=== PATIENT | female | born 2000 | race Caucasian/White ===

== ENCOUNTER 2023-12-26 10:13 | Outpatient (OUT) | payer BC, SELFPAY ==
[2023-12-26 12:08] LABS: HCG Quantitative <1 mIU/mL
== END 2023-12-26 10:14 | disposition home or self-care (01) ==
LOC: LAB 10:19
PROVIDERS: PCP Family Medicine; Visit Provider Physician Assistant
DX: R10.2 Pelvic and perineal pain (principal); N93.9 Abnormal uterine and vaginal bleeding, unspecified
CPT/HCPCS: 36415; 84702

== ENCOUNTER 2024-04-10 09:06 | Outpatient (OUT) | payer BC, SELFPAY ==
--- NOTE | 2024-04-10 09:09 | US_ITS ---
The [address] [address] Patient Name: BUDDY FAGAN MRN: [id number] date: 2000 Sex: F Assigned Patient Location: [facility] Current Patient Location: [facility] Accession/Order Number: [id number] Exam Date: 04/10/2024 09:09 Report Date: 04/10/2024 10:15 At the request of: VANESSA TOMAS Procedure: US OB transvaginal EXAMINATION: US OB transvaginal HISTORY: MISSED MENSES COMPARISON: No relevant comparison available. FINDINGS: GESTATIONAL SAC: Present and normal appearing. YOLK SAC: Present and normal appearing. POLE: Present and normal appearing. CARDIAC: Present. UTERUS: Normal size and appearance. OVARIES: Right: Normal. Left: Not seen. CERVIX: 4.8 cm in length and closed. CUL-DE-SAC: Normal. OTHER: None. AGE BY LMP: 9 weeks 0 days MARYELLEN BY LMP: 11/13/2024 AGE BY US CRL: 8 weeks 3 days MARYELLEN BY US CRL: 11/17/2024 US/US OB transvaginal IMPRESSION: 1. Single live intrauterine . Electronically authenticated by: JUSTIN HERNANDEZ Date: 04/10/2024 10:15
--- OUTSIDE RECORDS SUMMARY | 2024-04-10 09:29 | XMS_ITS | CCD ---
Author Organization [facility] Care Team Providers Care Vehicle Refinisher Name Role Phone Saeed MEJIA Primary Care Physician DO Saeed Mejia Primary Care Provider ADOLFO Dean Emergency Provider [phone] Saeed Mejia Primary Care Unavailable Addy Dean Attending Unavailable Addy Dean Admitting Unavailable JOSELINE RAMOS Attending Unavailable JOSELINE RAOMS Admitting Unavailable REQUEST, NONE LISTED Primary Care Unavaila JOSELINE Lazo Consulting Unavailable THOM, DR MENDEZ Consulting Unavailable THOM, DR MENDEZ Attending Unavailable REQUEST, DR POWELL LISTED Primary Care Unavaila ble THOM, DR MENDEZ Admitting Unavailable ZIEBER, DR JUSTIN Mazariegos Consulting Unavailable KARASIK, DR KAYE Attending Unavailable KARANDREA, DR KAYE Admitting Unavailable REQUEST, DR POWELL LISTED Primary Care Unavaila ble KARANDREA, DR KAYE Consulting Unavailable THOM, DR MENDEZ Consulting Unavailable GIOVANY DIETZ Consulting Unavailable THOM, DR MENDEZ Procedure Practitioner Unavailab le THOM, DR MENDEZ Consulting Unavailable KARASIK, DR KAYE Attending Unavailable KARASIK, DR KAYE Admitting Unavailable REQUEST, DR POWELL LISTED Primary Care Unavaila ble THOM, DR MENDEZ Attending Unavailable REQUEST, DR POWELL LISTED Primary Care Unavaila ble THOM, DR MENDEZ Admitting Unavailable ROBERTO, DR SAEED Rosenthal Primary Care Unavailable HTOM, DR MENDEZ Attending Unavailable THOM, DR MENDEZ Admitting Unavailable THOM, DR MENDEZ Consulting Unavailable THOM, DR MENDEZ Consulting Unavailable THOM, DR MENDEZ Attending Unavailable THOM, DR MENDEZ Admitting Unavailable ZIEBER, DR JUSTIN Mazariegos Consulting Unavailable THOM, DR MENDEZ Consulting Unavailable THOM, DR MENDEZ Admitting Unavailable THOM, DR MENDEZ Attending Unavailable ROBERTO, DR SAEED Rosenthal Primary Care Unavailable ROBERTO, DR SAEED Rosenthal Primary Care Unavailable THOM, DR MENDEZ Attending Unavailable THOM, DR MENDEZ Admitting Unavailable THOM, DR MENDEZ Consulting Unavailable THOM, DR MENDEZ Attending Unavailable REQUEST, DR POWELL LISTED Primary Care Unavaila isa TOMAS, DR MENDEZ Admitting Unavailable ROCKWOOD, DR ESCOBAR Chatman Consulting Unavailable THOM, DR MENDEZ Consulting Unavailable RICHARD, RAE Attending Unavailable Medications Current Medications Medication Drug Class(es) Dates Sig (Normalized) Sig (Original) amoxicillin 875 mg / clavulanate 125 mg oral tablet (1 source) Penicillin-class Antibacterial Start: 03-16-2022 End: 03-23-2022 take 1 tablet by mouth every twelve hours amoxicillin-clavul anate 875 mg-125 mg oral tablet = 1 tab(s), Oral, q12hr, X 7 day(s), # 14 tab(s), Refills(s) 0, [id number], cm, 03/16/22 15:28:00 EDT, Height/Length Dosing, 73.1, kg, 03/16/22 15:28:00 EDT, Weight Dosing Start Date: 03/16/22 Stop Date: 03/23/22 Status: Ordered loratadine 10 mg oral tablet (1 source) Start: 07-18-2020 take 1 tablet by mouth once daily loratadine 10 mg Tab 10 mg = 1 tab(s), Oral, Daily, # 15 tab(s), Refills(s) 1, Pharmacy: [id number], 180, cm, 07/18/20 9:00:00 EDT, Height/Length Dosing, 70.8, kg, 07/18/20 9:00:00 EDT, Weight Dosing Start Date: 07/18/20 Status: Ordered ondansetron 4 mg oral tablet (1 source) Serotonin-3 Receptor Antagonist Start: 03-16-2022 take 1 tablet by mouth every six hours as needed for nausea ondansetron 4 mg Tab 4 mg = 1 tab(s), Oral, q6hr, PRN Nausea/Vomiting, # 12 tab(s), Refills(s) 0, [id number] 180, cm, 03/16/22 15:28:00 EDT, Height/Length Dosing, 73.1, kg, 03/16/22 15:28:00 EDT, Weight Dosing Start Date: 03/16/22 Status: Ordered Pnv Cmb#95-Ferrous Fumarate-Fa () 28 mg iron- 800 mcg Tablet (1 source) Start: 08-04-2022 take 1 tablet by mouth once daily Pnv Cmb#95-Ferrous Fumarate-Fa () 28 mg iron- 800 mcg Tablet Active 1 TAB PO Daily August 04, 2022 12:00am Sprintec oral tablet (1 source) Start: 01-16-2022 take 1 tablet by mouth once daily Sprintec oral tablet 1 tab(s), Oral, Daily, 28 tab(s), [facility](s) [id number], 180, cm, 07/26/21 12:56:00 EDT, Height/Length Dosing, 69.3, kg, 07/26/21 12:56:00 EDT, Weight Dosing Start Date: 01/16/22 Status: Ordered triamcinolone acetonide 1 mg/ml topical cream (1 source) Corticosteroid Start: 08-04-2022 Triamcinolone Acetonide Active APPLIC TOPICAL August 04, 2022 12:00am Completed/Discontinued Medications Medication Drug Class(es) Dates Sig (Normalized) Sig (Original) Ventolin HFA 90 mcg/inh Aerosol (1 source) Start: 11-28-2021 take 1 dose by inhalation every six hours Ventolin HFA 90 mcg/inh Aerosol 2 puff(s), Inhalation, q6hr for wheezing, 1 EA, Refill(s) 1, [id number], 180, cm, 07/26/21 12:56:00 EDT, Height/Length Dosing, 69.3, kg, 07/26/21 12:56:00 EDT, Weight Dosing Start Date: 11/28/21 Status: Ordered Problems Active Problems Problem Classification Problem Date Documented Date Episodic/Chronic Menstrual disorders (4 sources) Irregular menstruation, unspecified; Translations: [IRREGULAR MENSTRUATION UNSPECIFIED] Onset: 10-08-2022 Chronic OB-related trauma to perineum and vulva (1 source) Second degree perineal laceration during delivery; Translations: [SECOND DEG PERINEAL LAC DUR DELIV] Onset: 01-04-2023 Episodic Other complications of (4 sources) Other specified related conditions, third trimester; Translations: [OTH SPEC PREG RELATED COND 3RD TRI] Onset: 10-23-2022 Episodic Other complications of (4 sources) Maternal care for excessive growth, third trimester, not applicable or unspecified; Translations: [MAT CARE EXCSS FTL GRTH 3RD TRI UNS] Onset: 12-27-2022 Episodic Other complications of (4 sources) Decreased movements, third trimester, not applicable or unspecified; Translations: [DECR MOVEMENTS 3RD TRI NA/UNS] Onset: 10-31-2022 Episodic Other and delivery including normal (11 sources) Encounter for routine follow-up; Translations: [Encounter for supervision of normal , unspecified, third trimester] Onset: 12-13-2022 Episodic Other screening for suspected conditions (not mental disorders or infectious disease) (9 sources) Encounter for screening for diabetes mellitus; Translations: [Encounter for other specified screening] Onset: 08-22-2022 Episodic Other skin disorders (1 source) Eruption; Translations: [Rash and other nonspecific skin eruption] 08-04-2022 Episodic Other skin disorders (1 source) Rash and other nonspecific skin eruption; Translations: [Rash and other nonspecific skin eruption] Onset: 08-04-2022 Episodic Other upper respiratory disease (1 source) Seasonal allergic rhinitis 05-20-2014 Chronic Other upper respiratory infections (1 source) Acute pharyngitis 07-18-2020 Episodic Residual codes; unclassified (1 source) Patient encounter status; Translations: [Other specified health status] Onset: 03-16-2022 Episodic Residual codes; unclassified (1 source) Body mass index 20-24 - normal; Translations: [Body mass index (BMI) 22.0-22.9, adult] Onset: 03-16-2022 Episodic Residual codes; unclassified (1 source) 38 weeks gestation of ; Translations: [38 WEEKS GESTATION OF ] Onset: 01-04-2023 Episodic Residual codes; unclassified (1 source) Type A blood, Rh negative; Translations: [TYPE A BLOOD RH NEGATIVE] Onset: 01-04-2023 Episodic Residual codes; unclassified (1 source) 34 weeks gestation of ; Translations: [34 WEEKS GESTATION OF ] Onset: 12-06-2022 Episodic Residual codes; unclassified (1 source) 30 weeks gestation of ; Translations: [30 WEEKS GESTATION OF ] Onset: 11-03-2022 Episodic Residual codes; unclassified (1 source) Unspecified blood type, Rh negative; Translations: [UNSPECIFIED BLOOD TYPE RH NEGATIVE] Onset: 10-30-2022 Episodic Unclassified (1 source) Body mass index 20-24 - normal 07-18-2020 Unclassified (1 source) Non-smoker 07-18-2020 Comment on above: Added secondary to d ocumentation in Social History. Urinary tract infections (1 source) Cystitis 07-26-2021 Episodic Viral infection (1 source) Disease caused by 2019-nCoV; Translations: [COVID-19] 04-23-2021 Episodic Viral infection (1 source) Disease caused by 2019-nCoV 11-28-2021 Past or Other Problems Problem Classification Problem Date Documented Date Episodic/Chronic Immunizations and screening for infectious disease (1 source) Contact with and (suspected) exposure to infections with a predominantly sexual mode of transmission; Translations: [CONTCT W EXPOS INFECT SEXUAL TRNSMS] Onset: 10-13-2022 Episodic Results Test Name Value Interpretation Reference Range Facility CBC AUTO DIFFon 01-01-2023 BASO # 0.1 103/ul Normal 0.0-0.1 [facility] Comment on above: Performed By: #### C BC #### [facility] [address] [place] [address] Dr. Maxx Downey Basophils/100 WBC (Bld) 0.4 % Normal 0.2-2.0 [facility] Comment on above: Performed By: #### C BC #### [facility] [address] [place] [address] Dr. Maxx Downey EO # 0.1 103/ul Normal 0.0-0.7 [facility] Comment on above: Performed By: #### C BC #### [facility] [address] [place] [address] Dr. Maxx Downey Eosinophils/100 WBC (Bld) 0.4 % Critically low 0.9-7.0 [facility] Comment on above: Performed By: #### C BC #### [facility] [address] [place] [address] Dr. Maxx Downey Erythrocyte distribution width (RBC) [Ratio] 13.7 % Normal 11.0-15.0 [facility] Comment on above: Performed By: #### C BC #### [facility] [address] [address] [address] Maxx Downey Hematocrit (Bld) [Volume fraction] 27.8 % Critically low 36.0-48.0 [facility] Comment on above: Performed By: #### C BC #### [facility] [address] [place] [address] Dr. Maxx Downey Hemoglobin (Bld) [Mass/Vol] 9.0 g/dL Critically low 12.0-16.0 [facility] Comment on above: Performed By: #### C BC #### [facility] [address] [place] [address] Dr. Maxx Downey IG # 0.11 10e3/ul Critically high 0.00-0.03 [facility] Comment on above: Performed By: #### C BC #### [facility] [address] [place] [address] Dr. Maxx Downey IG % 0.7 % Critically high 0.0-0.5 [facility] Comment on above: Performed By: #### C BC #### [facility] [address] [place] [address] Dr. Maxx Downey LYMPH # 2.9 103/ul Normal 1.2-3.8 [facility] Comment on above: Performed By: #### C BC #### [facility] [address] [place] [address] Dr. Maxx Downey Lymphocytes/100 WBC (Bld) 18.2 % Critically low 20.5-60.0 [facility] Comment on above: Performed By: #### C BC #### [facility] [address] [place] [address] Dr. Maxx Downey MANUAL DIFF REQ NO Normal [facility] Comment on above: Performed By: #### C BC #### [facility] [address] [address] [address] Maxx Downey MCH (RBC) [Entitic mass] 26.8 pg Normal 26.7-34.0 [facility] Comment on above: Performed By: #### C BC #### [facility] [address] [place] [address] Dr. Maxx Downey MCHC (RBC) [Mass/Vol] 32.4 g/dL Normal 29.9-35.2 [facility] Comment on above: Performed By: #### C BC #### [facility] [address] [place] [address] Dr. Maxx Downey MCV (RBC) [Entitic vol] 82.7 fL Normal 81.0-99.0 [facility] Comment on above: Performed By: #### C BC #### [facility] [address] [place] [address] Dr. Maxx Downey MONO # 1.2 103/ul Critically high 0.3-0.8 [facility] Comment on above: Performed By: #### C BC #### [facility] [address] [place] [address] Dr. Maxx Downey Monocytes/100 WBC (Bld) 7.6 % Normal 1.7-12.0 [facility] Comment on above: Performed By: #### C BC #### [facility] [address] [place] [address] Dr. Maxx Downey NEUT # 11.6 103/ul Critically high 1.4-6.5 [facility] Comment on above: Performed By: #### C BC #### [facility] [address] [place] [address] Dr. Maxx Downey Neutrophils/100 WBC (Bld) 72.7 % Normal 43.0-75.0 [facility] Comment on above: Performed By: #### C BC #### [facility] [address] [place] [address] Dr. Maxx Downey Platelet mean volume (Bld) [Entitic vol] 9.8 fL Normal 9.5-13.5 [facility] Comment on above: Performed By: #### C BC #### [facility] [address] [place] [address] Dr. Maxx Downey PLT 270 103/ul Normal 150-450 [facility] Comment on above: Performed By: #### C BC #### [facility] [address] [place] [address] Dr. Maxx Downey RBC 3.36 106/ul Critically low 4.20-5.40 [facility] Comment on above: Performed By: #### C BC #### [facility] [address] [place] [address] Dr. Maxx Downey WBC 15.9 103/ul Critically high 4.0-11.0 [facility] Comment on above: Performed By: #### C BC #### [facility] [address] [place] [address] Dr. Maxx Downey SCREENon 01-01-2023 SCREEN Negative Normal [facility] Comment on above: Performed By: #### F ETSCRN #### [facility] [address] [place] [address] Dr. Maxx Downey AMNISUREon 12-31-2022 AMNISURE Positive Abnormal NEGATIVE [facility] Comment on above: Performed By: #### D RUGRPD #### [facility] [address] [place] [address] Dr. Maxx Downey CBC AUTO DIFFon 12-31-2022 BASO # 0.1 103/ul Normal 0.0-0.1 [facility] Comment on above: Performed By: #### C BC #### [facility] [address] [place] [address] Dr. Maxx Downey Basophils/100 WBC (Bld) 0.4 % Normal 0.2-2.0 [facility] Comment on above: Performed By: #### C BC #### [facility] [address] [place] [address] Dr. Maxx Downey EO # 0.1 103/ul Normal 0.0-0.7 [facility] Comment on above: Performed By: #### C BC #### [facility] [address] [place] [address] Dr. Maxx Downey Eosinophils/100 WBC (Bld) 0.7 % Critically low 0.9-7.0 [facility] Comment on above: Performed By: #### C BC #### [facility] [address] [place] [address] Dr. Maxx Downey Erythrocyte distribution width (RBC) [Ratio] 13.7 % Normal 11.0-15.0 [facility] Comment on above: Performed By: #### C BC #### [facility] [address] [place] [address] Dr. Maxx Downey Hematocrit (Bld) [Volume fraction] 31.1 % Critically low 36.0-48.0 [facility] Comment on above: Performed By: #### C BC #### [facility] [address] [place] [address] Dr. Maxx Downey Hemoglobin (Bld) [Mass/Vol] 10.3 g/dL Critically low 12.0-16.0 [facility] Comment on above: Performed By: #### C BC #### [facility] [address] [place] [address] Dr. Maxx Downey IG # 0.08 10e3/ul Critically high 0.00-0.03 [facility] Comment on above: Performed By: #### C BC #### [facility] [address] [place] [address] Dr. Maxx Downey IG % 0.7 % Critically high 0.0-0.5 [facility] Comment on above: Performed By: #### C BC #### [facility] [address] [place] [address] Dr. Maxx Downey LYMPH # 2.8 103/ul Normal 1.2-3.8 [facility] Comment on above: Performed By: #### C BC #### [facility] [address] [place] [address] Dr. Maxx Downey Lymphocytes/100 WBC (Bld) 22.7 % Normal 20.5-60.0 [facility] Comment on above: Performed By: #### C BC #### [facility] [address] [place] [address] Dr. Maxx Downey MANUAL DIFF REQ NO Normal [facility] Comment on above: Performed By: #### C BC #### [facility] [address] [place] [address] Dr. Maxx Downey MCH (RBC) [Entitic mass] 26.4 pg Critically low 26.7-34.0 [facility] Comment on above: Performed By: #### C BC #### [facility] [address] [place] [address] Dr. Maxx Downey MCHC (RBC) [Mass/Vol] 33.1 g/dL Normal 29.9-35.2 [facility] Comment on above: Performed By: #### C BC #### [facility] [address] [place] [address] Dr. Maxx Downey MCV (RBC) [Entitic vol] 79.7 fL Critically low 81.0-99.0 [facility] Comment on above: Performed By: #### C BC #### [facility] [address] [place] [address] Dr. Maxx Downey MONO # 0.8 103/ul Normal 0.3-0.8 [facility] Comment on above: Performed By: #### C BC #### [facility] [address] [place] [address] Dr. Maxx Downey Monocytes/100 WBC (Bld) 6.5 % Normal 1.7-12.0 [facility] Comment on above: Performed By: #### C BC #### [facility] [address] [place] [address] Dr. Maxx Downey NEUT # 8.4 103/ul Critically high 1.4-6.5 [facility] Comment on above: Performed By: #### C BC #### [facility] [address] [place] [address] Dr. Maxx Downey Neutrophils/100 WBC (Bld) 69.0 % Normal 43.0-75.0 [facility] Comment on above: Performed By: #### C BC #### [facility] [address] [place] [address] Dr. Maxx Downey Platelet mean volume (Bld) [Entitic vol] 9.4 fL Critically low 9.5-13.5 [facility] Comment on above: Performed By: #### C BC #### [facility] [address] [place] [address] Dr. Maxx Downey PLT 296 103/ul Normal 150-450 [facility] Comment on above: Performed By: #### C BC #### [facility] [address] [address] [address] Maxx Downey RBC 3.90 106/ul Critically low 4.20-5.40 [facility] Comment on above: Performed By: #### C BC #### [facility] [address] [place] [address] Dr. Maxx Downey WBC 12.1 103/ul Critically high 4.0-11.0 [facility] Comment on above: Performed By: #### C BC #### [facility] [address] [place] [address] Dr. Maxx Downey DRUG SCREEN RAPID (URINE)on 12-31-2022 AMP Negative Normal NEGATIVE [facility] Comment on above: Performed By: #### D RUGRPD #### [facility] [address] [place] [address] Dr. Maxx Downey BAR Negative Normal NEGATIVE [facility] Comment on above: Performed By: #### D RUGRPD #### [facility] [address] [place] [address] Dr. Maxx Downey BUP Negative Normal NEGATIVE [facility] Comment on above: Performed By: #### D RUGRPD #### [facility] [address] [place] [address] Dr. Maxx Downey BZO Negative Normal NEGATIVE [facility] Comment on above: Performed By: #### D RUGRPD #### [facility] [address] [place] [address] Dr. Maxx Downey BRENDA Negative Normal NEGATIVE [facility] Comment on above: Performed By: #### D RUGRPD #### [facility] [address] [place] [address] Dr. Maxx Downey CUT-OFFS SEE BELOW Normal [facility] Comment on above: Result Comment: AMP (Amphetamine): 500ng/mL, BAR (Barbituates): 200 ng/mL, BZO (Benzodiazepines): 150 ng/mL, BUP (Buprenorphine): 10 ng/mL, BRENDA (Cocaine): 150 ng/mL, mAMP (Methamphetamine): 500 ng/mL, MTD (Methadone): 200 ng/mL, OPI (Opiates): 100 ng/mL, OXY (Oxycodone): 100 ng/mL, PCP (Phencyclidine): 25 ng/mL, PPX (Propoxyphene): 300 ng/mL, THC (Cannabinoids): 50 ng/mL, TCA (Trycyclic Antidepressants): 300 ng/mL Performed By: #### D RUGRPD #### [facility] [address] [place] [address] Dr. Maxx Downey DRUG CUT HEADER DRUG CLASS TEST SYSTEM CUT-OFF CONCENTRATIONS ARE FOLLOWS: Normal [facility] Comment on above: Performed By: #### D RUGRPD #### [facility] [address] [place] [address] Dr. Maxx Downey mAMP Negative Normal NEGATIVE [facility] Comment on above: Performed By: #### D RUGRPD #### [facility] [address] [place] [address] Dr. Maxx Downey MTD Negative Normal NEGATIVE [facility] Comment on above: Performed By: #### D RUGRPD #### [facility] [address] [place] [address] Dr. Maxx Downey OPI Negative Normal NEGATIVE [facility] Comment on above: Performed By: #### D RUGRPD #### [facility] [address] [place] [address] Dr. Maxx Downey OXY Negative Normal NEGATIVE [facility] Comment on above: Performed By: #### D RUGRPD #### [facility] [address] [place] [address] Dr. Maxx Downey PCP Negative Normal NEGATIVE [facility] Comment on above: Performed By: #### D RUGRPD #### [facility] [address] [place] [address] Dr. Maxx Downey PPX Negative Normal NEGATIVE [facility] Comment on above: Performed By: #### D RUGRPD #### [facility] [address] [place] [address] Dr. Maxx Downey TCA Negative Normal NEGATIVE [facility] Comment on above: Performed By: #### D RUGRPD #### [facility] [address] [place] [address] Dr. Maxx Downey THC Negative Normal NEGATIVE [facility] Comment on above: Performed By: #### D RUGRPD #### [facility] [address] [place] [address] Dr. Maxx Downey TYPE AND SCREENon 12-31-2022 TYPE AND SCREEN Negative Normal [facility] Comment on above: Performed By: #### T NS #### [facility] [address] [place] [address] Dr. Maxx Downey UA (CLEAN/CATCH) TIRE WRAPPER/MICRO I F IND.on 12-31-2022 Bilirubin Ql (U) Negative Normal NEGATIVE [facility] Comment on above: Performed By: #### H H #### [facility] [address] [place] [address] Dr. Maxx Downey Clarity (U) CLEAR Normal CLEAR [facility] Comment on above: Performed By: #### H H #### [facility] [address] [place] [address] Dr. Maxx Downey Color (U) LT. YELLOW Normal YELLOW [facility] Comment on above: Performed By: #### H H #### [facility] [address] [place] [address] Dr. Maxx Downey Glucose Ql (U) Negative Normal NEGATIVE [facility] Comment on above: Performed By: #### H H #### [facility] [address] [place] [address] Dr. Maxx Downey Hemoglobin Ql (U) Negative Normal NEGATIVE [facility] Comment on above: Performed By: #### H H #### [facility] [address] [place] [address] Dr. Maxx Downey Ketones Ql (U) Negative Normal NEGATIVE [facility] Comment on above: Performed By: #### H H #### [facility] [address] [place] [address] Dr. Maxx Downey LEUKOCYTES Negative Normal NEGATIVE [facility] Comment on above: Performed By: #### H H #### [facility] [address] [place] [address] Dr. Maxx Downey Nitrite Ql (U) Negative Normal NEGATIVE [facility] Comment on above: Performed By: #### H H #### [facility] [address] [place] [address] Dr. Maxx Downey pH (U) 5.5 [pH] Normal 5-9 [facility] Comment on above: Performed By: #### H H #### [facility] [address] [place] [address] Dr. Maxx Downey SPEC GRAVITY <=1.005 Abnormal 1.005-<=1.025 [facility] Comment on above: Performed By: #### H H #### [facility] [address] [place] [address] Dr. Maxx Downey UA PROTEIN Negative Normal NEGATIVE/ TRACE [facility] Comment on above: Performed By: #### H H #### [facility] [address] [place] [address] Dr. Maxx Downey UR MICRO IND NOT INDICATED Normal [facility] Comment on above: Performed By: #### H H #### [facility] [address] [place] [address] Dr. Maxx Downey Urobilinogen Qn (U) 0.2 {Dom'U}/dL Normal 0.2 - 1. 0 [facility] Comment on above: Performed By: #### H H #### [facility] [address] [place] [address] Dr. Maxx Downey US PREG GROWTHon 12-27-2022 US PREG GROWTH EXAMINATION: US PREG GROWTH HISTORY: Large for gestation age fetus COMPARISON: Ultrasound growth 11/29/2022 FINDINGS: Heart Rate: 138.0 bpm Number: 1.0 Position: CEPHALIC Amniotic Fluid Volume: 10.8 cm Maximum Vertical Pocket: 4.9 cm BIOMETRY: BPD: 9.2 cm cm; 37 weeks 3 days HC: 33.2 cmcm; 37 weeks 6 days AC: 35.7 cm cm; 39 weeks 4 days FL: 7.8 cm cm; 39 weeks 5 days EFW: 3697.1 grams; 85% FL/AC: 21.7 FL/BPD: 84.2 HC/AC: 0.9 GESTATIONAL AGE: Age by EDC: 38 weeks 1 days MARYELLEN by EDC: 01/09/2023 Age by US: 38 weeks 5 days MARYELLEN by US: 01/05/2023 IMPRESSION: 1. Single live intrauterine with growth detailed above. Electronically authenticated by: JUSTIN HERNANDEZ Date: 2022-12-27 10:02 Normal [facility] GROUP B STREP CULTUREon 12-02 S. agalactiae Ag Ql (Unsp spec) Culture Observations: NEGATIVE FOR GROUP B STREPTOCOCCUS. Normal [facility] Comment on above: Performed By: #### G BSCX #### [facility] [address] [place] [address] Dr. Maxx Downey US PREG GROWTHon 11-29-2022 US PREG GROWTH EXAMINATION: US PREG GROWTH HISTORY: Excessive growth affecting management of mother COMPARISON: No relevant comparison available. FINDINGS: Heart Rate: 156.0 bpm Amniotic Fluid Volume: 13.9 cm Number: 1.0 Position: Cephalic presentation, longitudinal lie Maximum Vertical Pocket: 5.2 cm cm 2.9 cm cm 3.1 cm cm 2.8 cm cm BIOMETRY: BPD: 8.9 cm cm; 36 weeks 1 days; 93% HC: 31.4 cmcm; 35 weeks 2 days, 41% AC: 30.9 cm cm; 34 weeks 6 days, 74% FL: 7.2 cm cm; 37 weeks 0 days; 96.3 % % EFW: 2725.9 grams, 6 lbs. 0 oz., 85% FL/AC: 23.4 FL/BPD: 81.0 HC/AC: 1.0 GESTATIONAL AGE: Age by EDC: 34 weeks 1 days MARYELLEN by EDC: 01/09/2023 Age by US: 35 weeks 6 days MARYELLEN by US: 12/28/2022 IMPRESSION: Normal interval growth Electronically authenticated by: ESCOBAR PERES Date: 2022-11-29 16:16 Normal [facility] TYPE AND SCREENon 10-23-2022 TYPE AND SCREEN Negative Normal [facility] Comment on above: Performed By: #### T NS #### [facility] [address] [place] [address] Dr. Maxx Downey GLUCOSE - 1HRon 10-17-2022 Glucose [Mass/Vol] 98 mg/dL Normal 74-106 [facility] Comment on above: Performed By: #### G LU1HR #### [facility] [address] [place] [address] Dr. Maxx Downey HEMOGRAM AND PLATELon 2021 Hematocrit (Bld) [Volume fraction] 34.7 % Critically low 36.0-48.0 [facility] Comment on above: Performed By: #### H H #### [facility] [address] [place] [address] Dr. Maxx Downey Hemoglobin (Bld) [Mass/Vol] 11.4 g/dL Critically low 12.0-16.0 [facility] Comment on above: Performed By: #### H H #### [facility] [address] [place] [address] Dr. Maxx Downey MCH (RBC) [Entitic mass] 28.9 pg Normal 26.7-34.0 [facility] Comment on above: Performed By: #### H H #### [facility] [address] [place] [address] Dr. Maxx Downey MCHC (RBC) [Mass/Vol] 32.9 g/dL Normal 29.9-35.2 [facility] Comment on above: Performed By: #### H H #### [facility] [address] [place] [address] Dr. Maxx Downey MCV (RBC) [Entitic vol] 88.1 fL Normal 81.0-99.0 [facility] Comment on above: Performed By: #### H H #### [facility] [address] [place] [address] Dr. Maxx Downey PLT 258 103/ul Normal 150-450 [facility] Comment on above: Performed By: #### H H #### [facility] [address] [address] [address] Maxx Downey RBC 3.94 106/ul Critically low 4.20-5.40 [facility] Comment on above: Performed By: #### H H #### [facility] [address] [address] [address] Maxx Downey WBC 11.9 103/ul Critically high 4.0-11.0 [facility] Comment on above: Performed By: #### H H #### [facility] [address] [address] [address] Maxx Downey HEP B SURFACE ANTIGEN SCREEN on 10-09-2022 HBsAg Screen Negative Normal Negative [facility] Comment on above: Performed By: #### H H #### [facility] [address] [address] [address] Maxx Downey HEPATITIS C VIRUS AB W/ REFL EX QUANTon 10-09-2022 HCV AB <0.1 Normal 0.0-0.9 [facility] Comment on above: Performed By: #### H H #### [facility] [address] [address] [address] Maxx Downey Interpretation: Comment Normal [facility] Comment on above: Result Comment: Nega tive Not infected with HCV, unless recent infection is suspected or other evidence exists to indicate HCV infection. Performed By: #### H H #### [facility] [address] [address] [address] Maxx Downey HIV 1 AND 2 WITH REFLEXon HIV Screen 4th Generation wRfx Non-Reactive Normal Non Reactive [facility] Comment on above: Result Comment: HIV Negative HIV-1/HIV-2 antibodies and HIV-1 p24 antigen were NOT detected. There is no laboratory evidence of HIV infection. Performed By: #### H H #### [facility] [address] [address] [address] Maxx Downey RPR QUANTon 10-09-2022 Rapid Plasma Reagin, Quant Non-Reactive Normal NonRea<1:1 [facility] Comment on above: Result Comment: Charleen rowe Note: This test does not meet current guidelines for screening and diagnosis of syphilis. This test is intended for following treatment response in patients being treated for syphilis infection. To screen for syphilis infection, a reflex cascade that includes both RPR and a treponema-specific assay should be utilized, such as Treponema pallidum (Syphilis) Screening [place] (852508) or Rapid Plasma Reagin (RPR) Test With Reflex to Quantitative RPR and Confirmatory Treponema pallidum Antibodies (002777). Performed By: #### D RUGRPD #### [facility] [address] [place] [address] Dr. Maxx Downey RUBELLA AB IGGon 10-09-2022 Rubella Antibodies, IgG 1.52 index Normal Immune >0.99 [facility] Comment on above: Result Comment: Non- immune <0.90 Equivocal 0.90 - 0.99 Immune >0.99 Performed By: #### H H #### [facility] [address] [place] [address] Dr. Maxx Downey CBC AUTO DIFFon 10-08-2022 BASO # 0.1 103/ul Normal 0.0-0.1 [facility] Comment on above: Performed By: #### D RUGRPD #### [facility] [address] [place] [address] Dr. Maxx Downey Basophils/100 WBC (Bld) 0.5 % Normal 0.2-2.0 [facility] Comment on above: Performed By: #### D RUGRPD #### [facility] [address] [place] [address] Dr. Maxx Downey EO # 0.2 103/ul Normal 0.0-0.7 [facility] Comment on above: Performed By: #### D RUGRPD #### [facility] [address] [place] [address] Dr. Maxx Downey Eosinophils/100 WBC (Bld) 1.5 % Normal 0.9-7.0 [facility] Comment on above: Performed By: #### D RUGRPD #### [facility] [address] [place] [address] Dr. Maxx Downey Erythrocyte distribution width (RBC) [Ratio] 12.7 % Normal 11.0-15.0 [facility] Comment on above: Performed By: #### D RUGRPD #### [facility] [address] [place] [address] Dr. Maxx Downey Hematocrit (Bld) [Volume fraction] 34.8 % Critically low 36.0-48.0 [facility] Comment on above: Performed By: #### D RUGRPD #### [facility] [address] [place] [address] Dr. Maxx Downey Hemoglobin (Bld) [Mass/Vol] 11.6 g/dL Critically low 12.0-16.0 [facility] Comment on above: Performed By: #### D RUGRPD #### [facility] [address] [place] [address] Dr. Maxx Downey IG # 0.07 10e3/ul Critically high 0.00-0.03 [facility] Comment on above: Performed By: #### D RUGRPD #### [facility] [address] [place] [address] Dr. Maxx Downey IG % 0.6 % Critically high 0.0-0.5 [facility] Comment on above: Performed By: #### D RUGRPD #### [facility] [address] [place] [address] Dr. Maxx Downey LYMPH # 2.0 103/ul Normal 1.2-3.8 [facility] Comment on above: Performed By: #### D RUGRPD #### [facility] [address] [place] [address] Dr. Maxx Downey Lymphocytes/100 WBC (Bld) 15.7 % Critically low 20.5-60.0 [facility] Comment on above: Performed By: #### D RUGRPD #### [facility] [address] [place] [address] Dr. Maxx Downey MANUAL DIFF REQ NO Normal [facility] Comment on above: Performed By: #### D RUGRPD #### [facility] [address] [address] [address] Maxx Downey MCH (RBC) [Entitic mass] 29.4 pg Normal 26.7-34.0 [facility] Comment on above: Performed By: #### D RUGRPD #### [facility] [address] [place] [address] Dr. Maxx Downey MCHC (RBC) [Mass/Vol] 33.3 g/dL Normal 29.9-35.2 [facility] Comment on above: Performed By: #### D RUGRPD #### [facility] [address] [place] [address] Dr. Maxx Downey MCV (RBC) [Entitic vol] 88.3 fL Normal 81.0-99.0 [facility] Comment on above: Performed By: #### D RUGRPD #### [facility] [address] [place] [address] Dr. Maxx Downey MONO # 0.7 103/ul Normal 0.3-0.8 [facility] Comment on above: Performed By: #### D RUGRPD #### [facility] [address] [place] [address] Dr. aMxx Downey Monocytes/100 WBC (Bld) 5.6 % Normal 1.7-12.0 [facility] Comment on above: Performed By: #### D RUGRPD #### [facility] [address] [place] [address] Dr. Maxx Downey NEUT # 9.4 103/ul Critically high 1.4-6.5 [facility] Comment on above: Performed By: #### D RUGRPD #### [facility] [address] [place] [address] Dr. Maxx Downey Neutrophils/100 WBC (Bld) 76.1 % Critically high 43.0-75.0 [facility] Comment on above: Performed By: #### D RUGRPD #### [facility] [address] [place] [address] Dr. Maxx Downey Platelet mean volume (Bld) [Entitic vol] 9.7 fL Normal 9.5-13.5 [facility] Comment on above: Performed By: #### D RUGRPD #### [facility] [address] [address] [address] Maxx Downey PLT 263 103/ul Normal 150-450 [facility] Comment on above: Performed By: #### D RUGRPD #### [facility] [address] [address] [address] Maxx Downey RBC 3.94 106/ul Critically low 4.20-5.40 [facility] Comment on above: Performed By: #### D RUGRPD #### [facility] [address] [address] [address] Maxx Downey WBC 12.4 103/ul Critically high 4.0-11.0 [facility] Comment on above: Performed By: #### D RUGRPD #### [facility] [address] [address] [address] Maxx Downey CULTURE URINEon 10-08-2022 CULTURE URINE Culture Observations: LIGHT GROWTH OF MIXED GENITAL CHANELLE. NO POTENTIAL PATHOGENS SEEN. Normal [facility] Comment on above: Performed By: #### H H #### [facility] [address] [address] [address] Maxx Downey GLYCOHEMOGLOBIN A1Con 2021 ADA RECOMMENDATION SEE BELOW Normal [facility] Comment on above: Result Comment: ADA RECOMMENDED LIMIT 4.0 - 6.0 ADA THERAPEUTIC TARGET < 7.0 ACTION SUGGESTED > 7.0 Performed By: #### A 1C #### [facility] [address] [address] [address] Maxx Downey Glucose [Mass/Vol] 105 mg/dL Normal [facility] Comment on above: Performed By: #### A 1C #### [facility] [address] [address] [address] Maxx Downey HbA1c (Bld) [Mass fraction] 5.3 % Normal 4.5-6.2 [facility] Comment on above: Performed By: #### A 1C #### [facility] [address] [address] [address] Maxx Downey TYPE AND SCREENon 10-08-2022 TYPE AND SCREEN Negative Normal [facility] Comment on above: Performed By: #### H H #### [facility] [address] [address] [address] Maxx Downey US PREG ANATOMY SINGLEon US PREG ANATOMY SINGLE EXAMINATION: US PREG ANATOMY SINGLE HISTORY: anatomy study COMPARISON: No relevant comparison available. TECHNIQUE: Transabdominal sonographic examination was performed for obstetrical and evaluation. FINDINGS: Number: 1 Heart Rate: 145.0 bpm H.B. /min Amniotic Fluid Volume: Subjectively normal Placental Location: ANTERIOR with lower margin 3.6 cm from os Cervix Length: 4 cm , closed. ANATOMY: Normal Structures -cerebellum, choroid plexus, cisterna magna, lateral cerebral ventricles, orbits, midline falx, hard palate, four-chamber heart, RVOT, LVOT, stomach, kidneys, bladder, umbilical cord insertion into abdomen, three-vessel cord, cervical spine, thoracic spine, lumbar spine, sacral spine, right upper extremity, left upper extremity, right lower extremity, left lower extremity. SUBOPTIMALLY SEEN: None ABNORMALITIES: None BIOMETRY: BPD: 4.8 cm 20 weeks 4 days HC: 17.3 cm 19 weeks 6 days AC: 15.2 cm 20 weeks 3 days FL: 3.7 cm 21 weeks 5 days EFW:383.6 grams; 90% FL/AC: 24.2 FL/BPD: 76.0 HC/AC: 1.1 GESTATIONAL AGE: Age by EDC: 20 weeks 0 days MARYELLEN by EDC: 01/09/2023 Age by current US: 20 weeks 5 days MARYELLEN by current US: 01/04/2023 IMPRESSION: 1. Single live intrauterine with growth detailed above. Electronically authenticated by: JUSTIN HERNANDEZ Date: 2022-08-22 17:16 Normal [facility] ED Note-Physicianon 08-07-20 22 ED Note-Physician [id number] #[id number]:[id number] Normal [facility] Lyme, Total Ab with Reflexon 08-04-2022 Lyme Total Antibody Negative Normal Negative [facility] Comment on above: Result Comment: Lyme Antibody Negative No laboratory evidence of infection with B. burgdorferi (Lyme disease). Negative results may occur in patients recently infected (less than or equal to 14 days) with B. burgdorferi. If recent infection is suspected, repeat testing on a new sample collected in 7 to 14 days is recommended. Performed at: - [facility] [address] [id number] Knife Setter: Juan Miguel Bennett PhD, Phone: [phone] PERFORMED BY: [facility] [address] [place] [address] PATHOLOGIST HORTICULTURALIST BRIAN RIVAS M.D. Performed By: #### L YME AB wRFX #### [facility] , Family Medicine Office/Clini c Noteon 03-22-2022 Family Medicine Office/Clinic Note Chief Complaint Patient presents for ear pain HPI Staff Tevin is a 21 year old female who presents for poss ear infection. Patient would like a test. Patient did stop taking BC. Patient did take 2 test last test was today both were negative. Last cycle was end of January. c/o of MARTINEZ, nausea and tender breast. Onset: 2 weeks ago Fevers: no Sinus congestion: yes Sneezing: yes Ear pain: yes LT Ear itching, popping, fullness, ringing, muffled hearing: yes Ear drainage: no Cough: no Sore throat: no Ear pain worse with chewing: no Itching: no Difficulty hearing: yes Treatment: none History of Present Illness TEVIN FAGAN is a 21 Years Female who presents today for concerns of sinus/upper respiratory symptoms as noted above, also states concern for possible and would like to be tested today in office. As noted above she did take 2 test at home which were both negative however states that her last menstrual cycle was in January, did have some spotting and January however not a full cycle is normal. She has noticed some headaches, intermittent nausea and breast tenderness with symptoms. She currently is in a monogamous relationship and states that although she is not attempting to become she is no longer taking her control are doing anything to prevent . She denies any fever/chills, shortness of breath/troubles breathing, wheezing, urinary symptoms, morning sickness, vomiting or diarrhea with symptoms. I have reviewed and verified the staff HPI to be accurate for this encounter. Review of Systems PHQ Score Initial Depression Screen Score: 0 ROS - Provider Constitutional: fever no, chills no, sweats no, weakness no Skin: rash no, lesions no, petechiae no ENMT: ear pain yes, ear drainage no, sore throat no, nasal congestion yes , nasal drainage yes Respiratory: chest discomfort no, shortness of breath no, cough no, orthopnea no, wheezing no Cardiovascular: chest pain no, palpitations no, edema no Gastrointestinal: nausea yes, vomiting no, diarrhea no Genitourinary: dysuria no, hematuria no, discharge no, urinary frequency no, urinary urgency no Musculoskeletal: back pain no, trauma no, + breast tenderness Neurologic: headache yes, dizziness no, numbness/tingling no, weakness no Physical Exam Vitals & Measurements HR: 110(Peripheral) BP: 112/74 SpO2: 98% HT: 180.0 cm HT: 180 cm WT: 73.1 kg WT: 73.1 kg BMI: 22.56 General: Well developed, well nourished, in no acute distress Ears: No deformity or lesion of external ear. Canals and TM appear normal bilaterally. TM?s intact, not inflamed, with normal light reflex. Hearing grossly normal to conversational speech Nose: Audible congestion, moderate erythema & swollen nasal turbinates, no active rhinorrhea present. Mouth: Mucous membranes moist. Normal oropharynx, and posterior pharynx without lesions or exudates. Tongue normal Neck: Neck supple. No masses or palpable cervical nodes. Trachea midline. Lungs: Normal respiratory effort and clear to auscultation Cardio: Regular rate and rhythm, normal S1 and S2, no murmur, no rub Skin: No rashes, ulcerations, or suspicious lesions to visible skin Mental Status: Alert and oriented x3. Normal mood and affect Assessment/Plan 1. Acute sinusitis with symptoms greater than 10 days (J01.90: Acute sinusitis, unspecified) Appropriate antibiotic as directed. Discussed expected improvement of symptoms, may continue OTC medications, discussed use of OTC nasal steroid spray and possible benefits. Suggesting nasal saline to moisturize nostrils. Vaporizer or humidifier helpful. Advised Augmentin may cause diarrhea - advised to use OTC Probiotics, or eat 2 Activia yogurt per day to help maintain normal GI chanelle. Pt verbalized understanding. 2. Breast tenderness (N64.4: Mastodynia) Negative hCG urine test in office today. Patient has also had 2 negative hCG test at home. Discussed other etiologies of symptoms such as secondary to diagnosis above. Will trial on ondansetron for nausea. Follow-up if no improvement in symptoms with resolution of the symptoms above. BMI 22.0-22.9, adult (Z68.22: Body mass index [BMI] 22.0-22.9, adult) Educational information attached Tobacco non-user (Z78.9: Other specified health status) Continue healthy lifestyle choices Follow-up With When Contact Information KEVIN BUCKNER CNP Within 2 to 4 weeks, only if needed [address] [place] [address] Additional Instructions: Patient Education Breast Tenderness Sinusitis, Adult Problem List/Past Medical History Ongoing Acute sinusitis with symptoms greater than 10 days BMI 21.0-21.9, adult Breast tenderness COVID-19 virus infection Cystitis Nonsmoker Sore throat Historical seasonal allergies Procedure/Surgical History arm surgery. Medications amoxicillin-clavulan ate 875 mg-125 mg oral tablet, 1 tab(s), Oral, q12hr loratadine 10 mg Tab, 10 mg= (more content not included)... Normal [facility] Comment on above: Result Comment: Elec tronically Signed By: KEVIN BUCKNER CNP\.br\Date and Time Signed: 03/22/22 07:34 EDT Patient Educationon 03-22-20 22 Patient Education Infectious Disease Sinusitis, Adult Sinusitis is inflammation of your sinuses. Sinuses are hollow spaces in the bones around your face. Your sinuses are located: ? Around your eyes. ? In the middle of your forehead. ? Behind your nose. ? In your cheekbones. Mucus normally drains out of your sinuses. When your nasal tissues become inflamed or swollen, mucus can become trapped or blocked. This allows bacteria, viruses, and fungi to grow, which leads to infection. Most infections of the sinuses are caused by a virus. Sinusitis can develop quickly. It can last for up to 4 weeks (acute) or for more than 12 weeks (chronic). Sinusitis often develops after a cold. What are the causes? This condition is caused by anything that creates swelling in the sinuses or stops mucus from draining. This includes: ? Allergies. ? Asthma. ? Infection from bacteria or viruses. ? Deformities or blockages in your nose or sinuses. ? Abnormal growths in the nose (nasal polyps). ? Pollutants, such as chemicals or irritants in the air. ? Infection from fungi (rare). What increases the risk? You are more likely to develop this condition if you: ? Have a weak body defense system (immune system). ? Do a lot of swimming or diving. ? Overuse nasal sprays. ? Smoke. What are the signs or symptoms? The main symptoms of this condition are pain and a feeling of pressure around the affected sinuses. Other symptoms include: ? Stuffy nose or congestion. ? Thick drainage from your nose. ? Swelling and warmth over the affected sinuses. ? Headache. ? Upper toothache. ? A cough that may get worse at night. ? Extra mucus that collects in the throat or the back of the nose (postnasal drip). ? Decreased sense of smell and taste. ? Fatigue. ? A fever. ? Sore throat. ? Bad breath. How is this diagnosed? This condition is diagnosed based on: ? Your symptoms. ? Your medical history. ? A physical exam. ? Tests to find out if your condition is acute or chronic. This may include: ? Checking your nose for nasal polyps. ? Viewing your sinuses using a device that has a light (endoscope). ? Testing for allergies or bacteria. ? Imaging tests, such as an MRI or CT scan. In rare cases, a bone biopsy may be done to rule out more serious types of fungal sinus disease. How is this treated? Treatment for sinusitis depends on the cause and whether your condition is chronic or acute. ? If caused by a virus, your symptoms should go away on their own within 10 days. You may be given medicines to relieve symptoms. They include: ? Medicines that shrink swollen nasal passages (topical intranasal decongestants). ? Medicines that treat allergies (antihistamines). ? A spray that eases inflammation of the nostrils (topical intranasal corticosteroids). ? Rinses that help get rid of thick mucus in your nose (nasal saline washes). ? If caused by bacteria, your health care provider may recommend waiting to see if your symptoms improve. Most bacterial infections will get better without antibiotic medicine. You may be given antibiotics if you have: ? A severe infection. ? A weak immune system. ? If caused by narrow nasal passages or nasal polyps, you may need to have surgery. Follow these instructions at home: Medicines ? Take, use, or apply [id number] and prescription medicines only as told by your health care provider. These may include nasal sprays. ? If you were prescribed an antibiotic medicine, take it as told by your health care provider. Do not stop taking the antibiotic even if you start to feel better. Hydrate and humidify ? Drink enough fluid to keep your urine pale yellow. Staying hydrated will help to thin your mucus. ? Use a cool mist humidifier to keep the humidity level in your home above 50%. ? Inhale steam for 10?15 minutes, 3?4 times a day, or as told by your health care provider. You can do this in the bathroom while a hot shower is running. ? Limit your exposure to cool or dry air. Rest ? Rest as much as possible. ? Sleep with your head raised (elevated). ? Make sure you get enough sleep each night. General instructions ? Apply a warm, moist washcloth to your face 3?4 times a day or as told by your health care provider. This will help with discomfort. ? Wash your hands often with soap and water to reduce your exposure to germs. If soap and water are not available, use hand retrofit installer. ? Do not smoke. Avoid being around people who are smoking (secondhand smoke). ? Keep all follow-up visits as told by your health care provider. This is important. Contact a health care provider if: ? You have a fever. ? Your symptoms get worse. ? Your symptoms do not improve within 10 days. Get help right away if: ? You have a severe headache. ? You have persistent vomiting. ? You have severe pain or swell (more content not included)... [facility] Ambulatory Visit Summaryon 0 03-16-2022 Ambulatory Visit Summary TEVIN FAGAN Alex :2000 Visit Date:03/16/2022 Ambulatory Visit Instructions Your Diagnosis BMI 22.0-22.9, adult Tobacco non-user Your Care Team Attending Physician - KEVIN UBCKNER CNP Primary Care Physician - Saeed MEJIA DO This Is Your Medications List albuterol (Ventolin HFA 90 mcg/inh Aerosol) ethinyl estradiol-norgestima te (Sprintec oral tablet) loratadine (loratadine 10 mg Tab) Procedures Performed arm surgery. Discharge Vitals Heart Rate (Peripheral) 110 Blood Pressure 112/74 Height 180.0 cm Height 180 cm Weight 73.1 kg Weight 73.1 kg BMI 22.56 Medications What How Much When Why Instructions Unchanged albuterol (Ventolin HFA 90 mcg/ inh Aerosol) 2 Puffs Inhalation Every 6 hours as needed for for wheezing Unchanged ethinyl estradiol-norgestima te (Sprintec oral tablet) 1 Tablets By Mouth Every day Encounter for control Women's annual routine gynecological examination Unchanged loratadine (loratadine 10 mg Tab) 1 Tablets By Mouth Every day Allergies No Known Allergies Problems Ongoing - Any problem that you are currently receiving treatment for. BMI 21.0-21.9, adult COVID-19 virus infection Cystitis Nonsmoker Sore throat Historical - Any problem that you are no longer receiving treatment for. seasonal allergies [facility] Family Medicine Video Visit - Telehealthon 11-28-2021 Family Medicine Video Visit - Telehealth HPI Staff Tevin is a 21 year old female who presents via video visit with: C/O fever of 101.5, chill/hot sweats, body aches, headache, sinus congestion, productive cough, ear pressure, sore throat, SOB. Denies wheezing, nausea, vomiting, diarrhea or loss of taste/smell. Symptoms started about 2 days ago. She tested positive for COVID at home yesterday. She has been taking otc decongestants and trying to stay hydrated. She has not had the COVID vaccine. She has had previous COVID infection x2. Requesting refills of her inhaler, states this helped her significantly the last time she had COVID. History of Present Illness I have reviewed and verified the staff HPI to be accurate for this encounter. Review of Systems Constitutional: no fever, no chills, no sweats, no weakness Respiratory: no shortness of breath, no cough, no orthopnea, no wheezing Cardiovascular: no chest pain, no palpitations, no edema Additional ROS info: Except as noted in the above Review of Systems and in the History of Present Illness all other systems have been reviewed and are negative or noncontributory. Physical Exam Gen: NAD ENT: Sounds congested Lung: Non-labored respirations. Assessment/Plan 1. COVID-19 virus infection (U07.1: COVID-19) will start Zinc, Vitamin D3, Quercitin. Will refill ventolin Ordered: TELEHEALTH Office Visit Level 2 Est 02805 Orders: albuterol, 2 puff(s), Inhalation, q6hr for wheezing, 1 EA, Refill(s) 1, [id number], 180, cm, 07/26/21 12:56:00 EDT, Height/Length Dosing, 69.3, kg, 07/26/21 12:56:00 EDT, Weight Dosing Follow-up No qualifying data available Problem List/Past Medical History Ongoing BMI 21.0-21.9, adult COVID-19 virus infection Cystitis Nonsmoker Sore throat Historical seasonal allergies Procedure/Surgical History arm surgery. Medications loratadine 10 mg Tab, 10 mg= 1 tab(s), Oral, Daily, 1 refills Sprintec oral tablet, 1 tab(s), Oral, Daily, 1 refills Ventolin HFA 90 mcg/inh Aerosol, 2 puff(s), Inhalation, q6hr, PRN, 1 refills Allergies No Known Allergies Social History Alcohol - Low Risk, 11/16/2019 Current, 1-2 times per week, 11/16/2019 Exercise - Does not exercise, 11/16/2019 Substance Abuse - Denies Substance Abuse, 05/23/2016 Tobacco - Denies Tobacco Use, 05/23/2016 Never (less than 100 in lifetime) Tobacco Use:. Never Smokeless Tobacco Use:. Household tobacco concerns: No., 12/14/2020 Family History Fibromyalgia: Mother. [facility] Comment on above: Result Comment: Elec tronically Signed By: Saeed MEJIA DO\.br\Date and Time Signed: 11/28/21 15:55 EST Vital Signs Date Time Vital Sign Value Performing Clinician Mayur joyce 08-04-2022 17:10-0400 Body height 180.34 cm DO Saeed Mejia Work Phone: [facility] 08-04-2022 17:10-0400 Body temperature 99.7 [degF] DO Saeed Mejia Work Phone: [facility] 08-04-2022 17:10-0400 Body weight 74 kg DO Saeed Mejia Work Phone: [facility] 08-04-2022 17:10-0400 Diastolic blood pressure 67 mm[Hg] DO Saeed Mejia Work Phone: [facility] 08-04-2022 17:10-0400 Heart rate 104 /min DO Saeed Mejia Work Phone: [facility] 08-04-2022 17:10-0400 Respiratory rate 18 /min DO Saeed Mejia Work Phone: [facility] 08-04-2022 17:10-0400 SaO2% (BldA) [Mass fraction] 97 % DO Saeed Mejia Work Phone: [facility] 08-04-2022 17:10-0400 Systolic blood pressure 122 mm[Hg] DO Saeed Mejia Work Phone: [facility] 03-16-2022 15:23-0400 Blood Pressure Location KEVIN SIDELL [facility] 03-16-2022 15:23-0400 Diastolic blood pressure 74 mm[Hg] KEVIN SIDELL [facility] 03-16-2022 15:23-0400 Heart rate 110 /min KEVIN SIDELL [facility] 03-16-2022 15:23-0400 SaO2% (BldA) [Mass fraction] 98 % KEVIN SIDELL [facility] 03-16-2022 15:23-0400 Systolic blood pressure 112 mm[Hg] KEVIN SIDELL [facility] Encounters Encounter Date Encounter Type Care Provider Facility Start: 12-26-2023 End: 12-26-2023 ambulatory RAE RAMOS Not Available Start: 01-03-2023 End: 01-03-[address] VANESSA TOMAS Facility:[facility] Start: 12-31-2022 End: 01-02-2023 Evaluation and management of inpatient DR SAEED MASSEY Facility:[facility] Start: 12-27-2022 End: 12-28-[address] VANESSA TOMAS Facility:[facility] Start: 12-13-2022 End: 12-13-2022 ambulatory JOSELINE RAMOS Facility:[facility] Start: 11-29-2022 End: 11-30-[address] VANESSA TOMAS Facility:[facility] Start: 10-31-2022 End: 10-31-[address] VANESSA TOMAS Facility:[facility] Start: 10-23-2022 End: 10-24-[address] SAEED MEJIA Facility:[facility] Start: 10-17-2022 End: 10-18-[address] SAEED MEJIA Facility:[facility] Start: 10-08-2022 End: 10-09-[address] VANESSA TOMAS Facility:[facility] Start: 08-22-2022 End: 08-23-[address] VANESSA TOMAS Facility:[facility] Start: 08-04-2022 End: 08-04-2022 Emergency department patient visit Saeed Mejia Facility:[facility] Start: 08-04-2022 End: 08-04-2022 Emergency department patient visit DO Saeed Mejia Work Phone: [facility] Start: 03-16-2022 End: 03-16-2022 Patient encounter procedure KEVIN BUCKNER [facility] [place] Procedures Date Procedure Procedure Detail Performing Clinician Start: 12-31-2022 Delivery of Products of Conception, External Approach JOSELINE RAMOS Start: 12-31-2022 Division of Female Perineum, External Approach JOSELINE RAMOS Start: 12-31-2022 Repair Perineum Musc le, Open Approach JOSELINE RAMOS arm surgery KEVIN BUCKNER Plan of Treatment Date Care Activity Detail Author Start: 08-04-2022 Borrelia burgdorferi DNA assay [facility] Work Phone: Borrelia burgdorferi Ab [Interpretation] in Serum [facility] Work Phone: Borrelia burgdorferi IgG Ab [Presence] in Serum or Plasma by Immunoassay [facility] Work Phone: Borrelia burgdorferi IgG+IgM Ab [Presence] in Serum by Immunoassay [facility] Work Phone: Borrelia burgdorferi IgM Ab [Presence] in Serum or Plasma by Immunoassay [facility] Work Phone: Patient Education Skin Rash ED [facility] Work Phone: Patient referral [facility] Work Phone: Payers Date Payer Category Payer Unknown [id number] 2022 Self-pay [id number] 2000 Unknown [id number] .16.84 [id number] 2000 Unknown [id number] .16.84 [id number] 2000 Unknown [id number] 2000 Unknown [id number] 2.16.84 [id number] 1998 Unknown [id number] .16.84 [id number] 1998 Unknown [id number] 2.16.84 [id number] 2000 Unknown [id number] 2.16.84 [id number] 2000 Unknown [id number] 2.16.84 [id number] 2000 Unknown [id number] 2.16.84 [id number] 1998 Unknown [id number] 2.16.84 [id number] 1998 Unknown [id number] 2.16.84 [id number] 1961 Private Health Insurance [id number] Unknown [id number] 2.16.8 [id number] Social History Date Type Detail Facility Start: 03-16-2022 End: 08-04-2022 Tobacco smoking status Never smoked tobacco (finding) [facility] Tobacco smoking status Never [facility] Sex Assigned At Female [facility] Start: 2000 Sex Assigned At Female F [facility] Evaluation + Plan note Note Date & Type Note Facility Evaluation + Plan note No data available for this section [facility] Evaluation note Note Date & Type Note Facility Evaluation note No assessment information availa [facility] Work Phone: Hospital Discharge instructions Note Date & Type Note Facility Hospital Discharge instructions No data available for this section [facility] Chief Complaint and Reason for Visit Chief Complaint 17 wks preg body bhupendra h Advance Directives No Advanced Directives Records Found Advance Directive Response Recorded Date/ Time Advance Directives No April 23 9:48pm Summary Purpose Family History No Family History Records FoundNo Family History Records FoundNo Family History Records FoundNo Family History Records Found Additional Source Comments Care Teams (unrecognized sec tion and content) Team Status: Inactive Member Role Status Dates Saeed Mejia DO Primary Care Provider Active Addy Dean APRN Emergency Provider Active Team Status: Active Member Role Status Dates Saeed Mejia DO Primary Care Provider Active Goals (unrecognized section and content) Goals may be documented in a n alternate section INFORMATION SOURCE (unrecogn ized section and content) DATE CREATED AUTHOR 08/07/2022 [facility] DATE CREATED AUTHOR AUTHOR'S ORGANIZ ATION 09/01/2022 [facility] DATE CREATED AUTHOR AUTHOR'S ORGANIZ ATION 01/16/2023 [facility] DATE CREATED AUTHOR AUTHOR'S ORGANIZ ATION 12/27/2023 [facility] EPIC FOR RECORDS PERTAINING TO PATIENTS WHO ARE OR HAVE BEEN ENROLLED IN A CHEMICAL DEPENDENCY/SUBSTANCEABUSE PROGRAM, SOME INFORMATION MAY BE OMITTED. This clinical summary was aggregated from multiple sources. Caution should be exercised in using it in the provision of clinical care. This summary normalizes information from multiple sources, and as a consequence, information in this document may materially change the coding, format and clinical context of patient data. In addition, data may be omitted in some cases. CLINICAL DECISIONS SHOULD BE BASED ON THE PRIMARY CLINICAL RECORDS. [facility] [email or web address] provides no warranty or guarantee of the accuracy or completeness of information in this document.
== END 2024-04-10 09:07 | disposition home or self-care (01) ==
LOC: NOMS 09:06
PROVIDERS: PCP Family Medicine; Visit Provider Obstetrics & Gynecology
DX: Z34.91 Encounter for supervision of normal pregnancy, unspecified, first trimester (principal); Z3A.08 8 weeks gestation of pregnancy; N92.6 Irregular menstruation, unspecified
CPT/HCPCS: 76817

== ENCOUNTER 2024-06-08 12:45 | Outpatient (OUT) | payer BC, SELFPAY ==
--- OUTSIDE RECORDS SUMMARY | 2024-06-08 13:13 | XMS_ITS | CCD ---
Author Organization [facility] Care Team Providers Care Coverage Specialist Rn Name Role Phone Saeed MEJIA Primary Care Physician DO Saeed Mejia Primary Care Provider ADOLFO Dean Emergency Provider Saeed Mejia Primary Care Unavailable Addy Dean Attending Unavailable Addy Dean Admitting Unavailable JOSELINE RAMOS Attending Unavailable JOSELINE RAMOS Admitting Unavailable REQUEST, NONE LISTED Primary Care Unavaila JOSELINE Lazo Consulting Unavailable THOM, DR MENDEZ Consulting Unavailable THOM, DR MENDEZ Attending Unavailable REQUEST, NONE LISTED Primary Care Unavaila ble THOM, DR MENDEZ Admitting Unavailable ZIEBER, DR JUSTIN Mazariegos Consulting Unavailable KARASIK, DR KAYE Attending Unavailable KARASIK, DR KAYE Admitting Unavailable REQUEST, NONE LISTED Primary Care Unavaila ble BRYSON, DR KAYE Consulting Unavailable THOM, DR MENDEZ Consulting Unavailable GIOVANY DIETZ Consulting Unavailable THOM, DR MENDEZ Procedure Practitioner Unavailab le THOM, DR MENDEZ Consulting Unavailable KARASIK, DR KAYE Attending Unavailable KARNUK, DR KAYE Admitting Unavailable REQUEST, DR POWELL LISTED Primary Care Unavaila ble THOM, DR MENDEZ Attending Unavailable REQUEST, NONE LISTED Primary Care Unavaila ble THOM, DR [...] THOM, DR MENDEZ Attending Unavailable REQUEST, DR ANDRE LISTED Primary Care Unavaila isa TOMAS, DR MENDEZ Admitting Unavailable HEMPHILL, DR ESCOBAR Chatman Consulting Unavailable THOM, DR MENDEZ Consulting Unavailable RAE RAMOS Attending Unavailable Medications Current Medications Medication Drug Class(es) Dates Sig (Normalized) Sig (Original) amoxicillin 875 mg / clavulanate 125 mg oral tablet (1 source) Penicillin-class Antibacterial Start: 03-16-2022 End: 03-23-2022 take 1 tablet by mouth every twelve hours amoxicillin-clavul anate 875 mg-125 mg oral tablet = 1 tab(s), Oral, q12hr, X 7 day(s), # 14 tab(s), Refills(s) 0, [id number], 180, cm, 03/16/22 15:28:00 EDT, Height/Length Dosing, 73.1, kg, 03/16/22 15:28:00 EDT, Weight Dosing Start Date: 03/16/22 Stop Date: 03/23/22 Status: Ordered loratadine 10 mg oral tablet (1 source) Start: 07-18-2020 take 1 tablet by mouth once daily loratadine 10 mg Tab 10 mg = 1 tab(s), Oral, Daily, # 15 tab(s), Refills(s) 1, Pharmacy: [id number], 180, cm, 07/18/20 9:00:00 [...] Nausea/Vomiting, # 12 tab(s), Refills(s) 0, Pharmacy: [facility] #[id number], 180, cm, 03/16/22 15:28:00 EDT, Height/Length [...] tab(s), Oral, Daily, 28 tab(s), [facility](s) 5[id number], 180, cm, 07/26/21 12:56:00 EDT, [...] q6hr for wheezing, 1 EA, Refill(s) 1, [facility]/pharmacy #[id number], 180, cm, 07/26/21 12:56:00 EDT, Height/Length [...] Viral infection (1 source) Disease caused by 2018-nCoV; Translations: [COVID-19] 04-23-2021 Episodic Viral infection (1 [...] 01-01-2023 BASO # 0.1 103/ul Normal 0.0-0.1 [facility] Comment on above: Performed By: #### C BC #### [facility] [address] [address] [address] Maxx Downey Basophils/100 WBC (Bld) 0.4 % Normal 0.2-2.0 [facility] Comment on above: Performed By: #### C BC #### [facility] [address] [address] [address] Maxx Downey EO # 0.1 103/ul Normal 0.0-0.7 [facility] Comment on above: Performed By: #### C BC #### [facility] [address] [address] [address] Maxx Downey Eosinophils/100 WBC (Bld) 0.4 % Critically low 0.9-7.0 [facility] Comment on above: Performed By: #### C BC #### [facility] [address] [place] [address] Dr. Maxx Downey Erythrocyte distribution width (RBC) [Ratio] 13.7 % Normal 11.0-15.0 [facility] Comment on above: Performed By: #### C BC #### [facility] [address] [place] [address] Dr. Maxx Downey Hematocrit (Bld) [Volume fraction] 27.8 % Critically low 36.0-48.0 [facility] Comment on above: Performed By: #### C BC #### [facility] [address] [place] [address] Dr. Maxx Downey Hemoglobin (Bld) [Mass/Vol] 9.0 g/dL Critically low 12.0-16.0 [facility] Comment on above: Performed By: #### C BC #### [facility] [address] [place] [address] Dr. Maxx Downey IG # 0.11 10e3/ul Critically high 0.00-0.03 [facility] Comment on above: Performed By: #### C BC #### [facility] [address] [place] [address] Dr. Maxx Downey IG % 0.7 % Critically high 0.0-0.5 [facility] Comment on above: Performed By: #### C BC #### [facility] [address] [place] [address] Dr. Maxx Downey LYMPH # 2.9 103/ul Normal 1.2-3.8 [facility] Comment on above: Performed By: #### C BC #### [facility] [address] [place] [address] Dr. Maxx Downey Lymphocytes/100 WBC (Bld) 18.2 % Critically low 20.5-60.0 [facility] Comment on above: Performed By: #### C BC #### [facility] [address] [place] [address] Dr. Maxx Downey MANUAL DIFF REQ NO Normal [facility] Comment on above: Performed By: #### C BC #### [facility] [address] [address] [address] Maxx Downey MCH (RBC) [Entitic mass] 26.8 pg Normal 26.7-34.0 [facility] Comment on above: Performed By: #### C BC #### [facility] [address] [address] [address] Maxx Downey MCHC (RBC) [Mass/Vol] 32.4 g/dL Normal 29.9-35.2 [facility] Comment on above: Performed By: #### C BC #### [facility] [address] [address] [address] Maxx Downey MCV (RBC) [Entitic vol] 82.7 fL Normal 81.0-99.0 [facility] Comment on above: Performed By: #### C BC #### [facility] [address] [place] [address] Dr. Maxx Downey MONO # 1.2 103/ul Critically high 0.3-0.8 [facility] Comment on above: Performed By: #### C BC #### [facility] [address] [place] [address] Dr. Maxx Downey Monocytes/100 WBC (Bld) 7.6 % Normal 1.7-12.0 [facility] Comment on above: Performed By: #### C BC #### [facility] [address] [place] [address] Dr. Maxx Downey NEUT # 11.6 103/ul Critically high 1.4-6.5 [facility] Comment on above: Performed By: #### C BC #### [facility] [address] [place] [address] Dr. Maxx Downey Neutrophils/100 WBC (Bld) 72.7 % Normal 43.0-75.0 [facility] Comment on above: Performed By: #### C BC #### [facility] [address] [place] [address] Dr. Maxx Downey Platelet mean volume (Bld) [Entitic vol] 9.8 fL Normal 9.5-13.5 [facility] Comment on above: Performed By: #### C BC #### [facility] [address] [place] [address] Dr. Maxx Downey PLT 270 103/ul Normal 150-450 [facility] Comment on above: Performed By: #### C BC #### [facility] [address] [place] [address] Dr. Maxx Downey RBC 3.36 106/ul Critically low 4.20-5.40 [facility] Comment on above: Performed By: #### C BC #### [facility] [address] [place] [address] Dr. Maxx Downey WBC 15.9 103/ul Critically high 4.0-11.0 [facility] Comment on above: Performed By: #### C BC #### [facility] [address] [place] [address] Dr. Maxx Downey SCREENon 01-01-2023 SCREEN Negative Normal [facility] Comment on above: Performed By: #### F ETSCRN #### [facility] [address] [place] [address] Dr. Maxx Downey AMNISUREon 12-31-2022 AMNISURE Positive Abnormal NEGATIVE [facility] Comment on above: Performed By: #### D RUGRPD #### [facility] [address] [place] [address] Dr. Maxx Downey CBC AUTO DIFFon 12-31-2022 BASO # 0.1 103/ul Normal 0.0-0.1 [facility] Comment on above: Performed By: #### C BC #### [facility] [address] [place] [address] Dr. Maxx Downey Basophils/100 WBC (Bld) 0.4 % Normal 0.2-2.0 [facility] Comment on above: Performed By: #### C BC #### [facility] [address] [place] [address] Dr. Maxx Downey EO # 0.1 103/ul Normal 0.0-0.7 [facility] Comment on above: Performed By: #### C BC #### [facility] [address] [address] [address] Maxx Downey Eosinophils/100 WBC (Bld) 0.7 % Critically low 0.9-7.0 [facility] Comment on above: Performed By: #### C BC #### [facility] [address] [place] [address] Dr. Maxx Downey Erythrocyte distribution width (RBC) [Ratio] 13.7 % Normal 11.0-15.0 [facility] Comment on above: Performed By: #### C BC #### [facility] [address] [place] [address] Dr. Maxx Downey Hematocrit (Bld) [Volume fraction] 31.1 % Critically low 36.0-48.0 [facility] Comment on above: Performed By: #### C BC #### [facility] [address] [place] [address] Dr. Maxx Downey Hemoglobin (Bld) [Mass/Vol] 10.3 g/dL Critically low 12.0-16.0 [facility] Comment on above: Performed By: #### C BC #### [facility] [address] [place] [address] Dr. Maxx Downey IG # 0.08 10e3/ul Critically high 0.00-0.03 [facility] Comment on above: Performed By: #### C BC #### [facility] [address] [place] [address] Dr. Maxx Downey IG % 0.7 % Critically high 0.0-0.5 [facility] Comment on above: Performed By: #### C BC #### [facility] [address] [place] [address] Dr. Maxx Downey LYMPH # 2.8 103/ul Normal 1.2-3.8 [facility] Comment on above: Performed By: #### C BC #### [facility] [address] [place] [address] Dr. Maxx Downey Lymphocytes/100 WBC (Bld) 22.7 % Normal 20.5-60.0 [facility] Comment on above: Performed By: #### C BC #### [facility] [address] [place] [address] Dr. Maxx Downey MANUAL DIFF REQ NO Normal [facility] Comment on above: Performed By: #### C BC #### [facility] [address] [place] [address] Dr. Maxx Downey MCH (RBC) [Entitic mass] 26.4 pg Critically low 26.7-34.0 [facility] Comment on above: Performed By: #### C BC #### [facility] [address] [place] [address] Dr. Maxx Downey MCHC (RBC) [Mass/Vol] 33.1 g/dL Normal 29.9-35.2 [facility] Comment on above: Performed By: #### C BC #### [facility] [address] [place] [address] Dr. Maxx Downey MCV (RBC) [Entitic vol] 79.7 fL Critically low 81.0-99.0 [facility] Comment on above: Performed By: #### C BC #### [facility] [address] [place] [address] Dr. Maxx Downey MONO # 0.8 103/ul Normal 0.3-0.8 [facility] Comment on above: Performed By: #### C BC #### [facility] [address] [place] [address] Dr. Maxx Downey Monocytes/100 WBC (Bld) 6.5 % Normal 1.7-12.0 [facility] Comment on above: Performed By: #### C BC #### [facility] [address] [place] [address] Dr. Maxx Downey NEUT # 8.4 103/ul Critically high 1.4-6.5 [facility] Comment on above: Performed By: #### C BC #### [facility] [address] [place] [address] Dr. Maxx Downey Neutrophils/100 WBC (Bld) 69.0 % Normal 43.0-75.0 [facility] Comment on above: Performed By: #### C BC #### [facility] [address] [address] [address] Maxx Downey Platelet mean volume (Bld) [Entitic vol] 9.4 fL Critically low 9.5-13.5 [facility] Comment on above: Performed By: #### C BC #### [facility] [address] [address] [address] Maxx Downey PLT 296 103/ul Normal 150-450 [facility] Comment on above: Performed By: #### C BC #### [facility] [address] [address] [address] Maxx Downey RBC 3.90 106/ul Critically low 4.20-5.40 [facility] Comment on above: Performed By: #### C BC #### [facility] [address] [place] [address] Dr. Maxx Downey WBC 12.1 103/ul Critically high 4.0-11.0 [facility] Comment on above: Performed By: #### C BC #### [facility] [address] [place] [address] Dr. Maxx Downey DRUG SCREEN RAPID (URINE)on 12-31-2022 AMP Negative Normal NEGATIVE [facility] Comment on above: Performed By: #### D RUGRPD #### [facility] [address] [place] [address] Dr. Maxx Downey BAR Negative Normal NEGATIVE [facility] Comment on above: Performed By: #### D RUGRPD #### [facility] [address] [address] [address] Maxx Downey BUP Negative Normal NEGATIVE [facility] Comment on above: Performed By: #### D RUGRPD #### [facility] [address] [address] [address] Maxx Downey BZO Negative Normal NEGATIVE [facility] Comment on above: Performed By: #### D RUGRPD #### [facility] [address] [place] [address] Dr. Maxx Downey BRENDA Negative Normal NEGATIVE [facility] Comment on above: Performed By: #### D RUGRPD #### [facility] [address] [place] [address] Dr. Maxx Downey CUT-OFFS SEE BELOW Normal [facility] Comment on above: Result [...] ng/mL Performed By: #### D RUGRPD #### [facility] [address] [place] [address] Dr. Maxx Downey DRUG CUT HEADER DRUG CLASS TEST SYSTEM CUT-OFF CONCENTRATIONS ARE FOLLOWS: Normal [facility] Comment on above: Performed By: #### D RUGRPD #### [facility] [address] [place] [address] Dr. Maxx Downey mAMP Negative Normal NEGATIVE [facility] Comment on above: Performed By: #### D RUGRPD #### [facility] [address] [place] [address] Dr. Maxx Downey MTD Negative Normal NEGATIVE [facility] Comment on above: Performed By: #### D RUGRPD #### [facility] [address] [place] [address] Dr. Maxx Downey OPI Negative Normal NEGATIVE [facility] Comment on above: Performed By: #### D RUGRPD #### [facility] [address] [place] [address] Dr. Maxx Downey OXY Negative Normal NEGATIVE [facility] Comment on above: Performed By: #### D RUGRPD #### [facility] [address] [place] [address] Dr. Maxx Downey PCP Negative Normal NEGATIVE [facility] Comment on above: Performed By: #### D RUGRPD #### [facility] [address] [place] [address] Dr. Maxx Downey PPX Negative Normal NEGATIVE [facility] Comment on above: Performed By: #### D RUGRPD #### [facility] [address] [place] [address] Dr. Maxx Downey TCA Negative Normal NEGATIVE [facility] Comment on above: Performed By: #### D RUGRPD #### [facility] [address] [place] [address] Dr. Maxx Downey THC Negative Normal NEGATIVE [facility] Comment on above: Performed By: #### D RUGRPD #### [facility] [address] [place] [address] Dr. Maxx Downey TYPE AND SCREENon 12-31-2022 TYPE AND SCREEN Negative Normal [facility] Comment on above: Performed By: #### T NS #### [facility] [address] [place] [address] Dr. Maxx Downey UA (CLEAN/CATCH) MAIL SORTER AND DELIVERY/MICRO I F IND.on 12-31-2022 Bilirubin Ql (U) Negative Normal NEGATIVE [facility] Comment on above: Performed By: #### H H #### [facility] [address] [place] [address] Dr. Maxx Downey Clarity (U) CLEAR Normal CLEAR [facility] Comment on above: Performed By: #### H H #### [facility] [address] [place] [address] Dr. Maxx Downey Color (U) LT. YELLOW Normal YELLOW [facility] Comment on above: Performed By: #### H H #### [facility] [address] [place] [address] Dr. Maxx Downey Glucose Ql (U) Negative Normal NEGATIVE [facility] Comment on above: Performed By: #### H H #### [facility] [address] [place] [address] Dr. Maxx Downey Hemoglobin Ql (U) Negative Normal NEGATIVE [facility] Comment on above: Performed By: #### H H #### [facility] [address] [place] [address] Dr. Maxx Downey Ketones Ql (U) Negative Normal NEGATIVE [facility] Comment on above: Performed By: #### H H #### [facility] [address] [place] [address] Dr. Maxx Downey LEUKOCYTES Negative Normal NEGATIVE [facility] Comment on above: Performed By: #### H H #### [facility] [address] [place] [address] Dr. Maxx Downey Nitrite Ql (U) Negative Normal NEGATIVE [facility] Comment on above: Performed By: #### H H #### [facility] [address] [place] [address] Dr. Maxx Downey pH (U) 5.5 [pH] Normal 5-9 [facility] Comment on above: Performed By: #### H H #### [facility] [address] [place] [address] Dr. Maxx Downey SPEC GRAVITY <=1.005 Abnormal 1.005-<=1.025 [facility] Comment on above: Performed By: #### H H #### [facility] [address] [place] [address] Dr. Maxx Downey UA PROTEIN Negative Normal NEGATIVE/ TRACE [facility] Comment on above: Performed By: #### H H #### [facility] [address] [place] [address] Dr. Maxx Downey UR MICRO IND NOT INDICATED Normal [facility] Comment on above: Performed By: #### H H #### [facility] [address] [place] [address] Dr. Maxx Downey Urobilinogen Qn (U) 0.2 {Dom'U}/dL Normal 0.2 - 1. 0 [facility] Comment on above: Performed By: #### H H #### [facility] [address] [place] [address] Dr. Maxx Downey US PREG GROWTHon 12-27-2022 [...] JUSTIN HERNANDEZ Date: 2022-12-27 10:02 Normal [facility] GROUP B STREP CULTUREon 12-02 S. agalactiae Ag Ql (Unsp spec) Culture Observations: NEGATIVE FOR GROUP B STREPTOCOCCUS. Normal [facility] Comment on above: Performed By: #### G BSCX #### [facility] [address] [place] [address] Dr. Maxx Downey US PREG GROWTHon 11-29-2022 [...] ESCOBAR PERES Date: 2022-11-29 16:16 Normal [facility] TYPE AND SCREENon 10-23-2022 TYPE AND SCREEN Negative Normal [facility] Comment on above: Performed By: #### T NS #### [facility] [address] [place] [address] Dr. Maxx Downey GLUCOSE - 1HRon 10-17-2022 Glucose [Mass/Vol] 98 mg/dL Normal 74-106 [facility] Comment on above: Performed By: #### G LU1HR #### [facility] [address] [place] [address] Dr. Maxx Downey HEMOGRAM AND PLATELon 2021 Hematocrit (Bld) [Volume fraction] 34.7 % Critically low 36.0-48.0 [facility] Comment on above: Performed By: #### H H #### [facility] [address] [place] [address] Dr. Maxx Downey Hemoglobin (Bld) [Mass/Vol] 11.4 g/dL Critically low 12.0-16.0 [facility] Comment on above: Performed By: #### H H #### [facility] [address] [place] [address] Dr. Maxx Downey MCH (RBC) [Entitic mass] 28.9 pg Normal 26.7-34.0 [facility] Comment on above: Performed By: #### H H #### [facility] [address] [place] [address] Dr. Maxx Downey MCHC (RBC) [Mass/Vol] 32.9 g/dL Normal 29.9-35.2 [facility] Comment on above: Performed By: #### H H #### [facility] [address] [place] [address] Dr. Maxx Downey MCV (RBC) [Entitic vol] 88.1 fL Normal 81.0-99.0 [facility] Comment on above: Performed By: #### H H #### [facility] [address] [place] [address] Dr. Maxx Downey PLT 258 103/ul Normal 150-450 [facility] Comment on above: Performed By: #### H H #### [facility] [address] [place] [address] Dr. Maxx Downey RBC 3.94 106/ul Critically low 4.20-5.40 [facility] Comment on above: Performed By: #### H H #### [facility] [address] [place] [address] Dr. Maxx Downey WBC 11.9 103/ul Critically high 4.0-11.0 [facility] Comment on above: Performed By: #### H H #### [facility] [address] [place] [address] Dr. Maxx Downey HEP B SURFACE ANTIGEN SCREEN on 10-09-2022 HBsAg Screen Negative Normal Negative [facility] Comment on above: Performed By: #### H H #### [facility] [address] [place] [address] Dr. Maxx Downey HEPATITIS C VIRUS AB W/ REFL EX QUANTon 10-09-2022 HCV AB <0.1 Normal 0.0-0.9 [facility] Comment on above: Performed By: #### H H #### [facility] [address] [place] [address] Dr. Maxx Downey Interpretation: Comment Normal [facility] Comment on above: Result Comment: Nega tive Not infected with HCV, unless recent infection is suspected or other evidence exists to indicate HCV infection. Performed By: #### H H #### [facility] [address] [place] [address] Dr. Maxx Downey HIV 1 AND 2 WITH REFLEXon HIV Screen 4th Generation wRfx Non-Reactive Normal Non Reactive [facility] Comment on above: Result Comment: HIV Negative HIV-1/HIV-2 antibodies and HIV-1 p24 antigen were NOT detected. There is no laboratory evidence of HIV infection. Performed By: #### H H #### [facility] [address] [place] [address] Dr. Maxx Downey RPR QUANTon 10-09-2022 Rapid Plasma Reagin, Quant Non-Reactive Normal NonRea<1:1 [facility] Comment on above: Result Comment: [place] rowe Note: This test does not meet current guidelines for screening and diagnosis of syphilis. This test is intended for following treatment response in patients being treated for syphilis infection. To screen for syphilis infection, a reflex cascade that includes both RPR and a treponema-specific assay should be utilized, such as Treponema pallidum (Syphilis) Screening [place] (763038) or Rapid Plasma Reagin (RPR) Test With Reflex to Quantitative RPR and Confirmatory Treponema pallidum Antibodies ([id number]). Performed By: #### D RUGRPD #### [facility] [address] [place] [address] Dr. Maxx Downey RUBELLA AB IGGon 10-09-2022 Rubella Antibodies, IgG 1.52 index Normal Immune >0.99 [facility] Comment on above: Result Comment: Non- immune <0.90 Equivocal 0.90 - 0.99 Immune >0.99 Performed By: #### H H #### [facility] [address] [place] [address] Dr. Maxx Downey CBC AUTO DIFFon 10-08-2022 BASO # 0.1 103/ul Normal 0.0-0.1 [facility] Comment on above: Performed By: #### D RUGRPD #### [facility] [address] [place] [address] Dr. Maxx Downey Basophils/100 WBC (Bld) 0.5 % Normal 0.2-2.0 [facility] Comment on above: Performed By: #### D RUGRPD #### [facility] [address] [place] [address] Dr. Maxx Downey EO # 0.2 103/ul Normal 0.0-0.7 [facility] Comment on above: Performed By: #### D RUGRPD #### [facility] [address] [place] [address] Dr. Maxx Downey Eosinophils/100 WBC (Bld) 1.5 % Normal 0.9-7.0 [facility] Comment on above: Performed By: #### D RUGRPD #### [facility] [address] [address] [address] Maxx Downey Erythrocyte distribution width (RBC) [Ratio] 12.7 % Normal 11.0-15.0 [facility] Comment on above: Performed By: #### D RUGRPD #### [facility] [address] [place] [address] Dr. Maxx Downey Hematocrit (Bld) [Volume fraction] 34.8 % Critically low 36.0-48.0 [facility] Comment on above: Performed By: #### D RUGRPD #### [facility] [address] [place] [address] Dr. Maxx Downey Hemoglobin (Bld) [Mass/Vol] 11.6 g/dL Critically low 12.0-16.0 [facility] Comment on above: Performed By: #### D RUGRPD #### [facility] [address] [place] [address] Dr. Maxx Downey IG # 0.07 10e3/ul Critically high 0.00-0.03 [facility] Comment on above: Performed By: #### D RUGRPD #### [facility] [address] [place] [address] Dr. Maxx Downey IG % 0.6 % Critically high 0.0-0.5 [facility] Comment on above: Performed By: #### D RUGRPD #### [facility] [address] [place] [address] Dr. Maxx Downey LYMPH # 2.0 103/ul Normal 1.2-3.8 [facility] Comment on above: Performed By: #### D RUGRPD #### [facility] [address] [place] [address] Dr. Maxx Downey Lymphocytes/100 WBC (Bld) 15.7 % Critically low 20.5-60.0 [facility] Comment on above: Performed By: #### D RUGRPD #### [facility] [address] [place] [address] Dr. Maxx Downey MANUAL DIFF REQ NO Normal [facility] Comment on above: Performed By: #### D RUGRPD #### [facility] [address] [address] [address] Maxx Downey MCH (RBC) [Entitic mass] 29.4 pg Normal 26.7-34.0 [facility] Comment on above: Performed By: #### D RUGRPD #### [facility] [address] [address] [address] Maxx Downey MCHC (RBC) [Mass/Vol] 33.3 g/dL Normal 29.9-35.2 [facility] Comment on above: Performed By: #### D RUGRPD #### [facility] [address] [address] [address] Maxx Downey MCV (RBC) [Entitic vol] 88.3 fL Normal 81.0-99.0 [facility] Comment on above: Performed By: #### D RUGRPD #### [facility] [address] [place] [address] Dr. Maxx Downey MONO # 0.7 103/ul Normal 0.3-0.8 [facility] Comment on above: Performed By: #### D RUGRPD #### [facility] [address] [address] [address] Maxx Downey Monocytes/100 WBC (Bld) 5.6 % Normal 1.7-12.0 [facility] Comment on above: Performed By: #### D RUGRPD #### [facility] [address] [address] [address] Maxx Downey NEUT # 9.4 103/ul Critically high 1.4-6.5 [facility] Comment on above: Performed By: #### D RUGRPD #### [facility] [address] [address] [address] Maxx Downey Neutrophils/100 WBC (Bld) 76.1 % Critically high 43.0-75.0 [facility] Comment on above: Performed By: #### D RUGRPD #### [facility] [address] [address] [address] Maxx Downey Platelet mean volume (Bld) [Entitic vol] 9.7 fL Normal 9.5-13.5 [facility] Comment on above: Performed By: #### D RUGRPD #### [facility] [address] [address] [address] Maxx Downey PLT 263 103/ul Normal 150-450 [facility] Comment on above: Performed By: #### D RUGRPD #### [facility] [address] [address] [address] Maxx Downey RBC 3.94 106/ul Critically low 4.20-5.40 [facility] Comment on above: Performed By: #### D RUGRPD #### [facility] [address] [address] [address] Maxx Downey WBC 12.4 103/ul Critically high 4.0-11.0 [facility] Comment on above: Performed By: #### D RUGRPD #### [facility] [address] [place] [address] Dr. Maxx Downey CULTURE URINEon 10-08-2022 CULTURE URINE Culture Observations: LIGHT GROWTH OF MIXED GENITAL CHANELLE. NO POTENTIAL PATHOGENS SEEN. Normal [facility] Comment on above: Performed By: #### H H #### [facility] [address] [place] [address] Dr. Maxx Downey GLYCOHEMOGLOBIN A1Con 2021 ADA RECOMMENDATION SEE BELOW Normal [facility] Comment on above: Result Comment: ADA RECOMMENDED LIMIT 4.0 - 6.0 ADA THERAPEUTIC TARGET < 7.0 ACTION SUGGESTED > 7.0 Performed By: #### A 1C #### [facility] [address] [place] [address] Dr. Maxx Downey Glucose [Mass/Vol] 105 mg/dL Normal [facility] Comment on above: Performed By: #### A 1C #### [facility] [address] [place] [address] Dr. Maxx Downey HbA1c (Bld) [Mass fraction] 5.3 % Normal 4.5-6.2 [facility] Comment on above: Performed By: #### A 1C #### [facility] [address] [place] [address] Dr. Maxx Downey TYPE AND SCREENon 10-08-2022 TYPE AND SCREEN Negative Normal [facility] Comment on above: Performed By: #### H H #### [facility] [address] [address] [address] Maxx Downey US PREG ANATOMY SINGLEon [...] by: JUSTIN HERNANDEZ Date: 2022-08-22 17:16 Normal [facility] ED Note-Physicianon 08-07-20 22 ED Note-Physician [id number]. [id number] #[id number]:[id number] Normal [facility] Lyme, Total Ab with Reflexon 08-04-2022 Lyme Total Antibody Negative Normal Negative [facility] Comment on above: Result Comment: Lyme Antibody Negative No laboratory evidence of infection with B. burgdorferi (Lyme disease). Negative results may occur in patients recently infected (less than or equal to 14 days) with B. burgdorferi. If recent infection is suspected, repeat testing on a new sample collected in 7 to 14 days is recommended. Performed at: - [facility] [address] [id number] Residential Substance Abuse Counselor: Juan Miguel Bennett PhD, Phone: [phone] PERFORMED BY: [facility] [place] [address] PATHOLOGIST [employer] BRIAN RIVAS M.D. Performed By: #### L [...] if needed [address] [place] [address] Additional Instructions: Patient Education Breast Tenderness Sinusitis, Adult Problem List/Past Medical History Ongoing Acute sinusitis with symptoms greater than 10 days BMI 21.0-21.9, adult Breast tenderness COVID-19 virus infection Cystitis Nonsmoker Sore throat Historical seasonal allergies Procedure/Surgical History arm surgery. Medications amoxicillin-clavulan ate 875 mg-125 mg oral tablet, 1 tab(s), Oral, q12hr loratadine 10 mg Tab, 10 mg= (more content not included)... Normal [facility] Comment on above: Result Comment: Elec tronically Signed By: KEVIN BUCKNER CNP\.br\Date and Time Signed: 03/22/22 07:34 EDT Patient Educationon 03-22-20 Patient Education Infectious Disease Sinusitis, Adult Sinusitis [...] home: Medicines ? Take, use, or apply envi-awt-nmjpuhl and prescription medicines only as told by [...] and water are not available, use hand ginner. ? Do not smoke. Avoid being around [...] or swell (more content not included)... Normal [facility] Ambulatory Visit Summaryon 0 03-16-2022 Ambulatory Visit Summary TEVIN FAGAN :2000 Visit Date:03/16/2022 Ambulatory Visit Instructions Your Diagnosis BMI 22.0-22.9, adult Tobacco non-user Your Care Team Attending Physician - KEVIN BUCKNER CNP Primary Care Physician - Saeed MEJIA [...] longer receiving treatment for. seasonal allergies Normal [facility] Family Medicine Video Visit - Telehealthon 11-28-2021 [...] Ordered: TELEHEALTH Office Visit Level 2 Est 33863 Orders: albuterol, 2 puff(s), Inhalation, q6hr for [...] No., 12/14/2020 Family History Fibromyalgia: Mother. Normal [facility] Comment on above: Result Comment: Elec tronically Signed By: Saeed MEJIA DO\.br\Date and Time Signed: 11/28/21 15:55 EST Vital Signs Date Time Vital Sign Value Performing Clinician [facility] 08-04-2022 17:10-0400 Body height 180.34 cm DO Saeed Mejia Work Phone: [facility] 08-04-2022 17:10-0400 Body temperature 99.7 [degF] DO Saeed Mejia Work Phone: [facility] 08-04-2022 17:10-0400 Body weight 74 kg DO Saeed Mejia Work Phone: [facility] 08-04-2022 17:10-0400 Diastolic blood pressure 67 mm[Hg] DO Saeed Roberto Work Phone: [facility] 08-04-2022 17:10-0400 Heart rate 104 /min DO Saeed Mejia Work Phone: [facility] 08-04-2022 17:10-0400 Respiratory rate 18 /min DO Saeed Mejia Work Phone: [facility] 08-04-2022 17:10-0400 SaO2% (BldA) [Mass fraction] 97 % DO Saede Mejia Work Phone: [facility] 08-04-2022 17:10-0400 Systolic blood pressure 122 mm[Hg] DO Saeed Mejia Work Phone: [facility] 03-16-2022 15:23-0400 Blood Pressure Location KEVIN SIDELL [facility] 03-16-2022 15:23-0400 Diastolic blood pressure 74 mm[Hg] KEVIN SIDELL [facility] 03-16-2022 15:23-0400 Heart rate 110 /min KEVIN SIDELL [facility] 03-16-2022 15:23-0400 SaO2% (BldA) [Mass fraction] 98 % KEVIN SIDELL [facility] 03-16-2022 15:23-0400 Systolic blood pressure 112 mm[Hg] KEVIN SIDELL [facility] Encounters Encounter Date Encounter Type Care Provider Facility Start: 04-10-2024 End: 04-10-2024 ambulatory RAE RAMOS Not Available Start: 12-26-2023 End: 12-26-2023 ambulatory RAE RAMOS Not Available Start: 01-03-2023 End: 01-03-[address] VANESSA TOMAS Facility:[facility] Start: 12-31-2022 End: 01-02-2023 Evaluation and management of inpatient DR SAEED MASSEY Facility:[facility] Start: 12-27-2022 End: 12-28-[address] AVNESSA TOMAS Facility:[facility] Start: 12-13-2022 End: 12-13-2022 ambulatory [...] 08-04-2022 Emergency department patient visit Saeed Mejia Facility:[facility] Start: 08-04-2022 End: 08-04-2022 Emergency department patient visit DO Saeed Mejia Work Phone: [facility] Start: 03-16-2022 End: 03-16-2022 Patient encounter procedure KEVIN BUCKNER [facility] Frantz Procedures Date Procedure Procedure Detail Performing Clinician Start: 12-31-2022 Delivery of Products of Conception, External Approach JOSELINE RAMOS Start: 12-31-2022 Division of Female Perineum, External Approach JOSELINE RAMOS Start: 12-31-2022 Repair Perineum Musc le, Open Approach JOSELINE RAMOS arm surgery KEVIN BUCKNER Plan of Treatment Date Care Activity Detail Author Start: 08-04-2022 Borrelia burgdorferi DNA assay [facility] Work Phone: Borrelia burgdorferi Ab [Interpretation] in Serum [facility] Work Phone: Borrelia burgdorferi IgG Ab [Presence] in Serum or Plasma by Immunoassay [facility] Work Phone: Borrelia burgdorferi IgG+IgM Ab [Presence] in Serum by Immunoassay [facility] Work Phone: Borrelia burgdorferi IgM Ab [Presence] in Serum or Plasma by Immunoassay [facility] Work Phone: Patient Education Skin Rash ED [facility] Work Phone: Patient referral [facility] Work Phone: Payers Date Payer Category Payer Unknown [id number] 2022 Self-pay [id number] 2000 Unknown [id number] 2.16.84 [id number] 1998 Unknown [id number] 2.16.84 [id number] 1998 Unknown [id number] 2.16.84 [id number] 1998 Unknown [id number] .16.84 [id number] 1998 Unknown [id number] 2.16.84 [id number] 1998 Unknown [id number] 2.16.84 0.1.759632.3.579.2.593 1998 Unknown [id number] .16.84 [id number] 1998 Unknown [id number] 2.16.84 0.1.879413.3.579.2.593 1998 Unknown [id number] 2.16.84 0.1.379002.3.579.2.593 1998 Unknown [id number] 2.16.84 0.1.757597.3.579.2.593 1998 Unknown [id number] 2.16.84 [id number] 1998 Unknown [id number] 2.16.84 [id number] 1961 Private Health Insurance [id number] Unknown [id number] 2.16.8 [id number] Social History Date Type Detail Facility Start: 03-16-2022 End: 08-04-2022 Tobacco smoking status Never smoked tobacco (finding) [facility] Tobacco smoking status Never [facility] Sex Assigned At Female [facility] Start: 2000 Sex Assigned At Female F [facility] Evaluation + Plan note Note Date & Type Note Facility Evaluation + Plan note No data available for this section [facility] Evaluation note Note Date & Type Note Facility Evaluation note No assessment information availa [facility] Work Phone: Hospital Discharge instructions Note Date & Type Note Facility Hospital Discharge instructions No data available for this section [facility] Chief Complaint and Reason for Visit Chief [...] Active Member Role Status Dates Saeed Mejia , Primary Care Provider Active Goals (unrecognized section and content) Goals may be documented in a n alternate section INFORMATION SOURCE (unrecogn ized section and content) DATE CREATED AUTHOR 08/07/2022 [facility] DATE CREATED AUTHOR AUTHOR'S ORGANIZ ATION 09/01/2022 [facility] DATE CREATED AUTHOR AUTHOR'S ORGANIZ ATION 01/16/2023 [facility] DATE CREATED AUTHOR AUTHOR'S ORGANIZ ATION 04/12/2024 [facility] EPIC FOR RECORDS PERTAINING TO [...] BE BASED ON THE PRIMARY CLINICAL RECORDS. [employer] provides no warranty or guarantee of the accuracy or completeness of information in this document.
[2024-06-08 13:45] LABS: Basophils Absolute Auto 0.1 10^3/uL (0.0-0.1); Basophils Percent Auto 0.5 % (0.2-2.0); Eosinophils Absolute Auto 0.2 10^3/uL (0.0-0.7); Eosinophils Percent Auto 1.8 % (0.9-7.0); Hemoglobin 11.6 g/dL (12.0-16.0); Immature Granulocytes Abs Auto 0.03 10^3/uL (0.00-0.03); Immature Granulocytes Pct Auto 0.3 % (0.0-0.5); Lymphocytes Absolute Auto 2.5 10^3/uL (1.2-3.8); Lymphocytes Percent Auto 22.6 % (20.5-60.0); Mean Corpuscular HGB Conc 32.2 g/dL (29.9-35.2); Mean Corpuscular Hemoglobin 27.7 pg (26.7-34.0); Mean Corpuscular Volume 85.9 fL (81.0-99.0); Mean Platelet Volume 10.2 fL (9.5-13.5); Monocytes Absolute Auto 0.6 10^3/uL (0.3-0.8); Monocytes Percent Auto 5.3 % (1.7-12.0); Neutrophils Absolute Auto 7.6 10^3/uL (1.4-6.5); Neutrophils Percent Auto 69.5 % (43.0-75.0); Platelet Count 298 10^3/uL (150-450); Red Blood Count 4.19 10^6/uL (4.20-5.40); Red Cell Distribution Width 13.1 % (11.0-15.0); White Blood Count 10.9 10^3/uL (4.0-11.0)
[2024-06-08 14:00] LABS: Estimated Average Glucose 103 mg/dL; Glycohemoglobin A1C 5.2 % (4.5-6.2)
[2024-06-09 06:08] LABS: HBsAg Screen Negative (Negative); HCV Ab Non Reactive (Non Reactive); HIV Ab/p24 Ag Screen Non Reactive (Non Reactive); Rubella Antibodies, IgG 1.58 index (Immune >0.99)
[2024-06-09 12:12] LABS: Rapid Plasma Reagin, Quant Non Reactive titer (NonRea<1:1)
[2024-06-10 01:07] LABS: Gest. Age on Collection Date 17.4 weeks (.); Insulin Dep Diabetes No (.); Maternal Age At EDD 26.4 yr (.); OSBR Risk 1 IN 2393 (.); Results Report (.)
== END 2024-06-08 12:46 | disposition home or self-care (01) ==
LOC: LAB 12:50
PROVIDERS: PCP Family Medicine; Visit Provider Obstetrics & Gynecology
DX: Z34.92 Encounter for supervision of normal pregnancy, unspecified, second trimester (principal); Z3A.17 17 weeks gestation of pregnancy
CPT/HCPCS: 36415; 82105; 83036; 85025; 86592; 86762; 86803; 86850; 86900; 86901; 87086; 87340; 87389; 88175

== ENCOUNTER 2024-06-08 20:49 | Outpatient (REF) | payer BC, SELFPAY ==
--- OUTSIDE RECORDS SUMMARY | 2024-06-08 20:53 | XMS_ITS ---
Patient Summarization (C-CDA 2.1 CCD) Created on: June 08, 2024 RYLAN GOODWIN lAex GOODWIN BERTA : 2000 Sex: Female Author Organization Sample organization Care Team Providers Care Radiator Mechanic Name Role Phone Saeed MEJIA Primary Care [...] Consulting Unavailable KARASIK, DR KAYE Attending Unavailable KARASISandra, DR KAYE Admitting Unavailable REQUEST, DR POWELL LISTED Primary Care Unavaila ble KARASIK, DR KAYE Consulting Unavailable THOM, DR MENDEZ Consulting Unavailable GIOVANY DIETZ Consulting Unavailable THOM, DR MENDEZ Procedure Practitioner Unavailab le THOM, DR MENDEZ Consulting Unavailable KARASIK, DR KAYE Attending Unavailable KARASIK, DR KAYE Admitting Unavailable REQUEST, DR POWELL LISTED Primary Care Unavaila ble THOM, DR MENDEZ Attending Unavailable REQUEST, NONE LISTED Primary Care Unavaila ble THOM, DR MENDEZ Admitting Unavailable ROBERTO, DR KAYE S Primary Care Unavailable THOM, DR MENDEZ Attending [...] REQUEST, DR ANDRE LISTED Primary Care Unavaila ble THOM, DR MENDEZ Admitting Unavailable BEAVERDAM, DR ESCOBAR Chatman Consulting Unavailable THOM, DR MENDEZ Consulting Unavailable RICHARD, RAE Attending Unavailable Encounters Encounter Date Encounter Type Care Provider [...] 08-04-2022 Emergency department patient visit Saeed Mejia Facility:[facility] Start: 08-04-2022 End: 08-04-2022 Emergency department patient visit DO Saeed Mejia Work Phone: [facility] Start: 03-16-2022 End: 03-16-2022 Patient encounter procedure KEVIN BUCKNER [facility] [place] Medications Current Medications Medication Drug Class(es) Dates Sig (Normalized) Sig (Original) amoxicillin 875 mg / clavulanate 125 mg oral tablet (1 source) Penicillin-class Antibacterial Start: 03-16-2022 End: 03-23-2022 take 1 tablet by mouth every twelve hours amoxicillin-clavul anate 875 mg-125 mg oral tablet = 1 tab(s), Oral, q12hr, X 7 day(s), # 14 tab(s), Refills(s) 0, [id number], cm, 03/16/22 15:28:00 EDT, Height/Length Dosing, 73.1, kg, 03/16/22 15:28:00 EDT, Weight Dosing Start Date: 03/16/22 Stop Date: 03/23/22 Status: Ordered loratadine 10 mg oral tablet (1 source) Start: 07-18-2020 take 1 tablet by mouth once daily loratadine 10 mg Tab 10 mg = 1 tab(s), Oral, Daily, # 15 tab(s), Refills(s) 1, Pharmacy: [id number], 180, cm, 07/18/20 9:00:00 EDT, [...] Nausea/Vomiting, # 12 tab(s), Refills(s) 0, Pharmacy: [facility]/pharmacy #[id number], 180, cm, 03/16/22 15:28:00 EDT, Height/Length [...] tab(s), Oral, Daily, 28 tab(s), Refill(s) 5, [id number], 180, cm, 07/26/21 [...] q6hr for wheezing, 1 EA, Refill(s) 1, [facility]/pharmacy #[id number], 180, cm, 07/26/21 12:56:00 EDT, Height/Length Dosing, 69.3, kg, 07/26/21 12:56:00 EDT, Weight Dosing Start Date: 11/28/21 Status: Ordered Payers Date Payer Category Payer Unknown [id number] 2022 Self-pay [id number] 2000 Unknown [id number] 2.16.84 [id number] 2000 Unknown [id number] 2.16.84 [id number] 2000 Unknown [id number] 2.16.84 [id number] 2000 Unknown [id number] 2.16.84 [id number] 1998 Unknown [id number] 2.16.84 [id number] 1998 Unknown [id number] 2.16.84 [id number] 1998 Unknown [id number] 2.16.84 [id number] 1998 Unknown [id number] 2.16.84 [id number] 1998 Unknown [id number] 2.16.84 [id number] 1998 Unknown [id number] 2.16.84 [id number] 1998 Unknown [id number] 2.16.84 [id number] 1998 Unknown [id number] 2.16.84 [id number] 1961 Private Health Insurance [id number] Unknown [id number] 2.16.8 [id number] Plan of Treatment Date Care Activity Detail Author Start: 08-04-2022 Borrelia burgdorferi DNA assay [facility] Work Phone: Borrelia burgdorferi Ab [Interpretation] in Serum [facility] Work Phone: Borrelia burgdorferi IgG Ab [Presence] in Serum or Plasma by Immunoassay [facility] Work Phone: Borrelia burgdorferi IgG+IgM Ab [Presence] in Serum by Immunoassay [facility] Work Phone: Borrelia burgdorferi IgM Ab [Presence] in Serum or Plasma by Immunoassay [facility] Work Phone: Patient Education Skin Rash ED [facility] Work Phone: Patient referral [facility] Work Phone: Problems Active Problems Problem Classification Problem Date [...] EXPOS INFECT SEXUAL TRNSMS] Onset: 10-13-2022 Episodic Procedures Date Procedure Procedure Detail Performing Clinician Start: 12-31-2022 Delivery of Products of Conception, External Approach JOSELINE RAMOS Start: 12-31-2022 Division of Female Perineum, External Approach JOSELINE RAMOS Start: 12-31-2022 Repair Perineum Musc le, Open Approach JOSELINE RAMOS arm surgery KEVIN COX Results Test Name Value Interpretation Reference Range Facility CBC AUTO DIFFon 01-01-2023 BASO # 0.1 103/ul Normal 0.0-0.1 [facility] Comment on above: Performed By: #### C BC #### [facility] [address] [address] [address] Maxx Downey Basophils/100 WBC (Bld) 0.4 % Normal 0.2-2.0 [facility] Comment on above: Performed By: #### C BC #### [facility] [address] [address] [address] Maxx Downey EO # 0.1 103/ul Normal 0.0-0.7 [facility] Comment on above: Performed By: #### C BC #### [facility] [address] [place] [address] Dr. Maxx Downey Eosinophils/100 WBC (Bld) 0.4 % Critically low 0.9-7.0 [facility] Comment on above: Performed By: #### C BC #### [facility] [address] [place] [address] Dr. Maxx Downey Erythrocyte distribution width (RBC) [Ratio] 13.7 % Normal 11.0-15.0 [facility] Comment on above: Performed By: #### C BC #### [facility] [address] [place] [address] Dr. Maxx Downey Hematocrit (Bld) [Volume fraction] 27.8 % Critically low 36.0-48.0 [facility] Comment on above: Performed By: #### C BC #### [facility] [address] [place] [address] Dr. Maxx Downey Hemoglobin (Bld) [Mass/Vol] 9.0 g/dL Critically low 12.0-16.0 [facility] Comment on above: Performed By: #### C BC #### [facility] [address] [place] [address] Dr. Maxx Downey IG # 0.11 10e3/ul Critically high 0.00-0.03 [facility] Comment on above: Performed By: #### C BC #### [facility] [address] [place] [address] Dr. Maxx Downey IG % 0.7 % Critically high 0.0-0.5 [facility] Comment on above: Performed By: #### C BC #### [facility] [address] [place] [address] Dr. Maxx Downey LYMPH # 2.9 103/ul Normal 1.2-3.8 [facility] Comment on above: Performed By: #### C BC #### [facility] [address] [place] [address] Dr. Maxx Downey Lymphocytes/100 WBC (Bld) 18.2 % Critically low 20.5-60.0 [facility] Comment on above: Performed By: #### C BC #### [facility] [address] [place] [address] Dr. Maxx Downey MANUAL DIFF REQ NO Normal [facility] Comment on above: Performed By: #### C BC #### [facility] [address] [place] [address] Dr. Maxx Downey MCH (RBC) [Entitic mass] 26.8 pg Normal 26.7-34.0 [facility] Comment on above: Performed By: #### C BC #### [facility] [address] [place] [address] Dr. Maxx Downey MCHC (RBC) [Mass/Vol] 32.4 g/dL Normal 29.9-35.2 [facility] Comment on above: Performed By: #### C BC #### [facility] [address] [place] [address] Dr. Maxx Downey MCV (RBC) [Entitic vol] 82.7 fL Normal 81.0-99.0 [facility] Comment on above: Performed By: #### C BC #### [facility] [address] [place] [address] Dr. Maxx Downey MONO # 1.2 103/ul Critically high 0.3-0.8 [facility] Comment on above: Performed By: #### C BC #### [facility] [address] [place] [address] Dr. Maxx Downey Monocytes/100 WBC (Bld) 7.6 % Normal 1.7-12.0 [facility] Comment on above: Performed By: #### C BC #### [facility] [address] [place] [address] Dr. Maxx Downey NEUT # 11.6 103/ul Critically high 1.4-6.5 [facility] Comment on above: Performed By: #### C BC #### [facility] [address] [place] [address] Dr. Maxx Downey Neutrophils/100 WBC (Bld) 72.7 % Normal 43.0-75.0 [facility] Comment on above: Performed By: #### C BC #### [facility] [address] [place] [address] Dr. Maxx Downey Platelet mean volume (Bld) [Entitic vol] 9.8 fL Normal 9.5-13.5 [facility] Comment on above: Performed By: #### C BC #### [facility] [address] [place] [address] Dr. Maxx Downey PLT 270 103/ul Normal 150-450 [facility] Comment on above: Performed By: #### C BC #### [facility] [address] [place] [address] Dr. Maxx Downey RBC 3.36 106/ul Critically low 4.20-5.40 [facility] Comment on above: Performed By: #### C BC #### [facility] [address] [place] [address] Dr. Maxx Downey WBC 15.9 103/ul Critically high 4.0-11.0 [facility] Comment on above: Performed By: #### C BC #### [facility] [address] [place] [address] Dr. Maxx Downey SCREENon 01-01-2023 SCREEN Negative Normal [facility] Comment on above: Performed By: #### F ETSCRN #### [facility] [address] [place] [address] Dr. Maxx Downey AMNISUREon 12-31-2022 AMNISURE Positive Abnormal NEGATIVE [facility] Comment on above: Performed By: #### D RUGRPD #### [facility] [address] [place] [address] Dr. Maxx Downey CBC AUTO DIFFon 12-31-2022 BASO # 0.1 103/ul Normal 0.0-0.1 [facility] Comment on above: Performed By: #### C BC #### [facility] [address] [place] [address] Dr. Maxx Downey Basophils/100 WBC (Bld) 0.4 % Normal 0.2-2.0 [facility] Comment on above: Performed By: #### C BC #### [facility] [address] [place] [address] Dr. Maxx Downey EO # 0.1 103/ul Normal 0.0-0.7 [facility] Comment on above: Performed By: #### C BC #### [facility] [address] [place] [address] Dr. Maxx Downey Eosinophils/100 WBC (Bld) 0.7 % Critically low 0.9-7.0 [facility] Comment on above: Performed By: #### C BC #### [facility] [address] [place] [address] Dr. Maxx Downey Erythrocyte distribution width (RBC) [Ratio] 13.7 % Normal 11.0-15.0 [facility] Comment on above: Performed By: #### C BC #### [facility] [address] [place] [address] Dr. Maxx Downey Hematocrit (Bld) [Volume fraction] 31.1 % Critically low 36.0-48.0 [facility] Comment on above: Performed By: #### C BC #### [facility] [address] [place] [address] Dr. Maxx Downey Hemoglobin (Bld) [Mass/Vol] 10.3 g/dL Critically low 12.0-16.0 [facility] Comment on above: Performed By: #### C BC #### [facility] [address] [place] [address] Dr. Maxx Doweny IG # 0.08 10e3/ul Critically high 0.00-0.03 [facility] Comment on above: Performed By: #### C BC #### [facility] [address] [place] [address] Dr. Maxx Downey IG % 0.7 % Critically high 0.0-0.5 [facility] Comment on above: Performed By: #### C BC #### [facility] [address] [place] [address] Dr. Maxx Downey LYMPH # 2.8 103/ul Normal 1.2-3.8 [facility] Comment on above: Performed By: #### C BC #### [facility] [address] [place] [address] Dr. Maxx Downey Lymphocytes/100 WBC (Bld) 22.7 % Normal 20.5-60.0 [facility] Comment on above: Performed By: #### C BC #### [facility] [address] [place] [address] Dr. Maxx Downey MANUAL DIFF REQ NO Normal [facility] Comment on above: Performed By: #### C BC #### [facility] [address] [place] [address] Dr. Maxx Downey MCH (RBC) [Entitic mass] 26.4 pg Critically low 26.7-34.0 [facility] Comment on above: Performed By: #### C BC #### [facility] [address] [place] [address] Dr. Maxx Downey MCHC (RBC) [Mass/Vol] 33.1 g/dL Normal 29.9-35.2 [facility] Comment on above: Performed By: #### C BC #### [facility] [address] [place] [address] Dr. Maxx Downey MCV (RBC) [Entitic vol] 79.7 fL Critically low 81.0-99.0 [facility] Comment on above: Performed By: #### C BC #### [facility] [address] [place] [address] Dr. Maxx Downey MONO # 0.8 103/ul Normal 0.3-0.8 [facility] Comment on above: Performed By: #### C BC #### [facility] [address] [address] [address] Maxx Downey Monocytes/100 WBC (Bld) 6.5 % Normal 1.7-12.0 [facility] Comment on above: Performed By: #### C BC #### [facility] [address] [address] [address] Maxx Downey NEUT # 8.4 103/ul Critically high 1.4-6.5 [facility] Comment on above: Performed By: #### C BC #### [facility] [address] [address] [address] Maxx Downey Neutrophils/100 WBC (Bld) 69.0 % Normal 43.0-75.0 [facility] Comment on above: Performed By: #### C BC #### [facility] [address] [place] [address] Dr. Maxx Downey Platelet mean volume (Bld) [Entitic vol] 9.4 fL Critically low 9.5-13.5 [facility] Comment on above: Performed By: #### C BC #### [facility] [address] [place] [address] Dr. Maxx Downey PLT 296 103/ul Normal 150-450 [facility] Comment on above: Performed By: #### C BC #### [facility] [address] [place] [address] Dr. Maxx Downey RBC 3.90 106/ul Critically low 4.20-5.40 [facility] Comment on above: Performed By: #### C BC #### [facility] [address] [place] [address] Dr. Maxx Downey WBC 12.1 103/ul Critically high 4.0-11.0 [facility] Comment on above: Performed By: #### C BC #### [facility] [address] [place] [address] Dr. Maxx Downey DRUG SCREEN RAPID (URINE)on 12-31-2022 AMP Negative Normal NEGATIVE [facility] Comment on above: Performed By: #### D RUGRPD #### [facility] [address] [place] [address] Dr. Maxx Downey BAR Negative Normal NEGATIVE [facility] Comment on above: Performed By: #### D RUGRPD #### [facility] [address] [place] [address] Dr. Maxx Downey BUP Negative Normal NEGATIVE [facility] Comment on above: Performed By: #### D RUGRPD #### [facility] [address] [place] [address] Dr. Maxx Downey BZO Negative Normal NEGATIVE [facility] Comment on above: Performed By: #### D RUGRPD #### [facility] [address] [place] [address] Dr. Maxx Downey BRENDA Negative Normal NEGATIVE [facility] Comment on above: Performed By: #### D RUGRPD #### [facility] [address] [place] [address] Dr. Maxx Downey CUT-OFFS SEE BELOW Normal [facility] Comment on above: Result Comment: AMP (Amphetamine): 500ng/mL, BAR (Barbituates): 200 ng/mL, BZO (Benzodiazepines): 150 ng/mL, BUP (Buprenorphine): 10 ng/mL, BRENDA (Cocaine): 150 ng/mL, mAMP (Methamphetamine): 500 ng/mL, MTD (Methadone): 200 ng/mL, OPI (Opiates): 100 ng/mL, OXY (Oxycodone): 100 ng/mL, PCP (Phencyclidine): 25 ng/mL, PPX (Propoxyphene): 300 ng/mL, THC (Cannabinoids): 50 ng/mL, TCA (Trycyclic Antidepressants): 300 ng/mL Performed By: #### D RUGRPD #### [facility] [address] [place] [address] Dr. Maxx Downey DRUG CUT HEADER DRUG CLASS TEST SYSTEM CUT-OFF CONCENTRATIONS ARE FOLLOWS: Normal [facility] Comment on above: Performed By: #### D RUGRPD #### [facility] [address] [place] [address] Dr. Maxx Downey mAMP Negative Normal NEGATIVE [facility] Comment on above: Performed By: #### D RUGRPD #### [facility] [address] [address] [address] Maxx Downey MTD Negative Normal NEGATIVE [facility] Comment on above: Performed By: #### D RUGRPD #### [facility] [address] [place] [address] Dr. Maxx Downey OPI Negative Normal NEGATIVE [facility] Comment on above: Performed By: #### D RUGRPD #### [facility] [address] [place] [address] Dr. Maxx Downey OXY Negative Normal NEGATIVE [facility] Comment on above: Performed By: #### D RUGRPD #### [facility] [address] [place] [address] Dr. Maxx Downey PCP Negative Normal NEGATIVE [facility] Comment on above: Performed By: #### D RUGRPD #### [facility] [address] [place] [address] Dr. Maxx Downey PPX Negative Normal NEGATIVE [facility] Comment on above: Performed By: #### D RUGRPD #### [facility] [address] [place] [address] Dr. Maxx Downey TCA Negative Normal NEGATIVE [facility] Comment on above: Performed By: #### D RUGRPD #### [facility] [address] [place] [address] Dr. Maxx Downey THC Negative Normal NEGATIVE [facility] Comment on above: Performed By: #### D RUGRPD #### [facility] [address] [place] [address] Dr. Maxx Downey TYPE AND SCREENon 12-31-2022 TYPE AND SCREEN Negative Normal [facility] Comment on above: Performed By: #### T NS #### [facility] [address] [place] [address] Dr. Maxx Downey UA (CLEAN/CATCH) FILM REPLACEMENT ORDERER/MICRO I F IND.on 12-31-2022 Bilirubin Ql (U) Negative Normal NEGATIVE [facility] Comment on above: Performed By: #### H H #### [facility] [address] [place] [address] Dr. Maxx Downey Clarity (U) CLEAR Normal CLEAR [facility] Comment on above: Performed By: #### H H #### [facility] [address] [address] [address] Maxx Downey Color (U) LT. YELLOW Normal YELLOW [facility] Comment on above: Performed By: #### H H #### [facility] [address] [place] [address] Dr. Maxx Downey Glucose Ql (U) Negative Normal NEGATIVE [facility] Comment on above: Performed By: #### H H #### [facility] [address] [place] [address] Dr. Maxx Downey Hemoglobin Ql (U) Negative Normal NEGATIVE [facility] Comment on above: Performed By: #### H H #### [facility] [address] [place] [address] Dr. Maxx Downey Ketones Ql (U) Negative Normal NEGATIVE [facility] Comment on above: Performed By: #### H H #### [facility] [address] [place] [address] Dr. Maxx Downey LEUKOCYTES Negative Normal NEGATIVE [facility] Comment on above: Performed By: #### H H #### [facility] [address] [place] [address] Dr. Maxx Downey Nitrite Ql (U) Negative Normal NEGATIVE [facility] Comment on above: Performed By: #### H H #### [facility] [address] [place] [address] Dr. Maxx Downey pH (U) 5.5 [pH] Normal 5-9 [facility] Comment on above: Performed By: #### H H #### [facility] [address] [place] [address] Dr. Maxx Downey SPEC GRAVITY <=1.005 Abnormal 1.005-<=1.025 [facility] Comment on above: Performed By: #### H H #### [facility] [address] [place] [address] Dr. Maxx Downey UA PROTEIN Negative Normal NEGATIVE/ TRACE [facility] Comment on above: Performed By: #### H H #### [facility] [address] [address] [address] Maxx Downey UR MICRO IND NOT INDICATED Normal [facility] Comment on above: Performed By: #### H H #### [facility] [address] [address] [address] Maxx Downey Urobilinogen Qn (U) 0.2 {Dom'U}/dL Normal 0.2 - 1. 0 [facility] Comment on above: Performed By: #### H H #### [facility] [address] [address] [address] Maxx Downey PREG GROWTHon 12-27-2022 US PREG GROWTH EXAMINATION: [...] JUSTIN HERNANDEZ Date: 2022-12-27 10:02 Normal [facility] GROUP B STREP CULTUREon 12-02 S. agalactiae Ag Ql (Unsp spec) Culture Observations: NEGATIVE FOR GROUP B STREPTOCOCCUS. Normal [facility] Comment on above: Performed By: #### G BSCX #### [facility] [address] [address] [address] Maxx Downey PREG GROWTHon 11-29-2022 US PREG GROWTH EXAMINATION: [...] ESCOBAR PERES Date: 2022-11-29 16:16 Normal [facility] TYPE AND SCREENon 10-23-2022 TYPE AND SCREEN Negative Normal [facility] Comment on above: Performed By: #### T NS #### [facility] [address] [place] [address] Dr. Maxx Downey GLUCOSE - 1HRon 10-17-2022 Glucose [Mass/Vol] 98 mg/dL Normal 74-106 [facility] Comment on above: Performed By: #### G LU1HR #### [facility] [address] [place] [address] Dr. Maxx Downey HEMOGRAM AND PLATELon 2021 Hematocrit (Bld) [Volume fraction] 34.7 % Critically low 36.0-48.0 [facility] Comment on above: Performed By: #### H H #### [facility] [address] [place] [address] Dr. Maxx Downey Hemoglobin (Bld) [Mass/Vol] 11.4 g/dL Critically low 12.0-16.0 [facility] Comment on above: Performed By: #### H H #### [facility] [address] [place] [address] Dr. Maxx Downey MCH (RBC) [Entitic mass] 28.9 pg Normal 26.7-34.0 [facility] Comment on above: Performed By: #### H H #### [facility] [address] [place] [address] Dr. Maxx Downey MCHC (RBC) [Mass/Vol] 32.9 g/dL Normal 29.9-35.2 [facility] Comment on above: Performed By: #### H H #### [facility] [address] [place] [address] Dr. Maxx Downey MCV (RBC) [Entitic vol] 88.1 fL Normal 81.0-99.0 [facility] Comment on above: Performed By: #### H H #### [facility] [address] [place] [address] Dr. Maxx Downey PLT 258 103/ul Normal 150-450 [facility] Comment on above: Performed By: #### H H #### [facility] [address] [place] [address] Dr. Maxx Downey RBC 3.94 106/ul Critically low 4.20-5.40 [facility] Comment on above: Performed By: #### H H #### [facility] [address] [place] [address] Dr. Maxx Downey WBC 11.9 103/ul Critically high 4.0-11.0 [facility] Comment on above: Performed By: #### H H #### [facility] [address] [place] [address] Dr. Maxx Downey HEP B SURFACE ANTIGEN SCREEN on 10-09-2022 HBsAg Screen Negative Normal Negative [facility] Comment on above: Performed By: #### H H #### [facility] [address] [place] [address] Dr. Maxx Downey HEPATITIS C VIRUS AB W/ REFL EX QUANTon 10-09-2022 HCV AB <0.1 Normal 0.0-0.9 [facility] Comment on above: Performed By: #### H H #### [facility] [address] [place] [address] Dr. Maxx Downey Interpretation: Comment Normal [facility] Comment on above: Result Comment: Nega tive Not infected with HCV, unless recent infection is suspected or other evidence exists to indicate HCV infection. Performed By: #### H H #### [facility] [address] [place] [address] Dr. Maxx Downey HIV 1 AND 2 WITH REFLEXon HIV Screen 4th Generation wRfx Non-Reactive Normal Non Reactive [facility] Comment on above: Result Comment: HIV Negative HIV-1/HIV-2 antibodies and HIV-1 p24 antigen were NOT detected. There is no laboratory evidence of HIV infection. Performed By: #### H H #### [facility] [address] [place] [address] Dr. Maxx Downey RPR QUANTon 10-09-2022 Rapid Plasma Reagin, Quant Non-Reactive Normal NonRea<1:1 [facility] Comment on above: Result Comment: Plea se Note: This test does not meet current guidelines for screening and diagnosis of syphilis. This test is intended for following treatment response in patients being treated for syphilis infection. To screen for syphilis infection, a reflex cascade that includes both RPR and a treponema-specific assay should be utilized, such as Treponema pallidum (Syphilis) Screening [place] (092016) or Rapid Plasma Reagin (RPR) Test With Reflex to Quantitative RPR and Confirmatory Treponema pallidum Antibodies (551159). Performed By: #### D RUGRPD #### [facility] [address] [place] [address] Dr. Maxx Downey RUBELLA AB IGGon 10-09-2022 Rubella Antibodies, IgG 1.52 index Normal Immune >0.99 [facility] Comment on above: Result Comment: Non- immune <0.90 Equivocal 0.90 - 0.99 Immune >0.99 Performed By: #### H H #### [facility] [address] [place] [address] Dr. Maxx Downey CBC AUTO DIFFon 10-08-2022 BASO # 0.1 103/ul Normal 0.0-0.1 [facility] Comment on above: Performed By: #### D RUGRPD #### [facility] [address] [address] [address] Maxx Downey Basophils/100 WBC (Bld) 0.5 % Normal 0.2-2.0 [facility] Comment on above: Performed By: #### D RUGRPD #### [facility] [address] [place] [address] Dr. Maxx Downey EO # 0.2 103/ul Normal 0.0-0.7 [facility] Comment on above: Performed By: #### D RUGRPD #### [facility] [address] [place] [address] Dr. Maxx Downey Eosinophils/100 WBC (Bld) 1.5 % Normal 0.9-7.0 [facility] Comment on above: Performed By: #### D RUGRPD #### [facility] [address] [place] [address] Dr. Maxx Downey Erythrocyte distribution width (RBC) [Ratio] 12.7 % Normal 11.0-15.0 [facility] Comment on above: Performed By: #### D RUGRPD #### [facility] [address] [place] [address] Dr. Maxx Downey Hematocrit (Bld) [Volume fraction] 34.8 % Critically low 36.0-48.0 [facility] Comment on above: Performed By: #### D RUGRPD #### [facility] [address] [place] [address] Dr. Maxx Downey Hemoglobin (Bld) [Mass/Vol] 11.6 g/dL Critically low 12.0-16.0 [facility] Comment on above: Performed By: #### D RUGRPD #### [facility] [address] [place] [address] Dr. Maxx Downey IG # 0.07 10e3/ul Critically high 0.00-0.03 [facility] Comment on above: Performed By: #### D RUGRPD #### [facility] [address] [place] [address] Dr. Maxx Downey IG % 0.6 % Critically high 0.0-0.5 [facility] Comment on above: Performed By: #### D RUGRPD #### [facility] [address] [place] [address] Dr. Maxx Downey LYMPH # 2.0 103/ul Normal 1.2-3.8 [facility] Comment on above: Performed By: #### D RUGRPD #### [facility] [address] [place] [address] Dr. Maxx Downey Lymphocytes/100 WBC (Bld) 15.7 % Critically low 20.5-60.0 [facility] Comment on above: Performed By: #### D RUGRPD #### [facility] [address] [place] [address] Dr. Maxx Downey MANUAL DIFF REQ NO Normal [facility] Comment on above: Performed By: #### D RUGRPD #### [facility] [address] [place] [address] Dr. Maxx Downey MCH (RBC) [Entitic mass] 29.4 pg Normal 26.7-34.0 [facility] Comment on above: Performed By: #### D RUGRPD #### [facility] [address] [place] [address] Dr. Maxx Downey MCHC (RBC) [Mass/Vol] 33.3 g/dL Normal 29.9-35.2 [facility] Comment on above: Performed By: #### D RUGRPD #### [facility] [address] [place] [address] Dr. Maxx Downey MCV (RBC) [Entitic vol] 88.3 fL Normal 81.0-99.0 [facility] Comment on above: Performed By: #### D RUGRPD #### [facility] [address] [place] [address] Dr. Maxx Downey MONO # 0.7 103/ul Normal 0.3-0.8 [facility] Comment on above: Performed By: #### D RUGRPD #### [facility] [address] [place] [address] Dr. Maxx Downey Monocytes/100 WBC (Bld) 5.6 % Normal 1.7-12.0 [facility] Comment on above: Performed By: #### D RUGRPD #### [facility] [address] [address] [address] Maxx Downey NEUT # 9.4 103/ul Critically high 1.4-6.5 [facility] Comment on above: Performed By: #### D RUGRPD #### [facility] [address] [place] [address] Dr. Maxx Downey Neutrophils/100 WBC (Bld) 76.1 % Critically high 43.0-75.0 [facility] Comment on above: Performed By: #### D RUGRPD #### [facility] [address] [place] [address] Dr. Maxx Downey Platelet mean volume (Bld) [Entitic vol] 9.7 fL Normal 9.5-13.5 [facility] Comment on above: Performed By: #### D RUGRPD #### [facility] [address] [place] [address] Dr. Maxx Downey PLT 263 103/ul Normal 150-450 [facility] Comment on above: Performed By: #### D RUGRPD #### [facility] [address] [place] [address] Dr. Maxx Downey RBC 3.94 106/ul Critically low 4.20-5.40 [facility] Comment on above: Performed By: #### D RUGRPD #### [facility] [address] [place] [address] Dr. Maxx Downey WBC 12.4 103/ul Critically high 4.0-11.0 [facility] Comment on above: Performed By: #### D RUGRPD #### [facility] [address] [place] [address] Dr. Maxx Downey CULTURE URINEon 10-08-2022 CULTURE URINE Culture Observations: LIGHT GROWTH OF MIXED GENITAL CHANELLE. NO POTENTIAL PATHOGENS SEEN. Normal [facility] Comment on above: Performed By: #### H H #### [facility] [address] [address] [address] Maxx Downey GLYCOHEMOGLOBIN A1Con 2021 ADA RECOMMENDATION SEE BELOW Normal [facility] Comment on above: Result Comment: ADA RECOMMENDED LIMIT 4.0 - 6.0 ADA THERAPEUTIC TARGET < 7.0 ACTION SUGGESTED > 7.0 Performed By: #### A 1C #### [facility] [address] [address] [address] Maxx Downey Glucose [Mass/Vol] 105 mg/dL Normal [facility] Comment on above: Performed By: #### A 1C #### [facility] [address] [address] [address] Maxx Downey HbA1c (Bld) [Mass fraction] 5.3 % Normal 4.5-6.2 [facility] Comment on above: Performed By: #### A 1C #### [facility] [address] [address] [address] Maxx Downey TYPE AND SCREENon 10-08-2022 TYPE AND SCREEN Negative Normal [facility] Comment on above: Performed By: #### H H #### [facility] [address] [address] [address] Maxx Downey US PREG ANATOMY SINGLEon [...] by: JUSTIN HERNANDEZ Date: 2022-08-22 17:16 Normal [facility] ED Note-Physicianon 08-07-20 22 ED Note-Physician [id number] #1.00CD:127 Normal [facility] Lyme, Total Ab with Reflexon 08-04-2022 Lyme Total Antibody Negative Normal Negative [facility] Comment on above: Result Comment: Lyme Antibody Negative No laboratory evidence of infection with B. burgdorferi (Lyme disease). Negative results may occur in patients recently infected (less than or equal to 14 days) with B. burgdorferi. If recent infection is suspected, repeat testing on a new sample collected in 7 to 14 days is recommended. Performed at: - [facility] [id number] [employer] C[employer] And Paster: Juan Miguel Bennett PhD, Phone: [phone] PERFORMED BY: [address] [place] [address] PATHOLOGIST GUN EXAMINER BRIAN RIVAS M.D. Performed By: #### L [...] 2 to 4 weeks, only if needed [address] [place] [address] Additional Instructions: Patient Education Breast Tenderness Sinusitis, Adult Problem List/Past Medical History Ongoing Acute sinusitis with symptoms greater than 10 days BMI 21.0-21.9, adult Breast tenderness COVID-19 virus infection Cystitis Nonsmoker Sore throat Historical seasonal allergies Procedure/Surgical History arm surgery. Medications amoxicillin-clavulan ate 875 mg-125 mg oral tablet, 1 tab(s), Oral, q12hr loratadine 10 mg Tab, 10 mg= (more content not included)... Normal [facility] Comment on above: Result Comment: Elec tronically [...] home: Medicines ? Take, use, or apply bgcy-zht-srbudfk and prescription medicines only as told by [...] and water are not available, use hand financial aid director. ? Do not smoke. Avoid being around [...] or swell (more content not included)... Normal [facility] Ambulatory Visit Summaryon 0 03-16-2022 Ambulatory Visit [...] longer receiving treatment for. seasonal allergies Normal [facility] Video Visit - Telehealthon 11-28-2021 [...] Ordered: TELEHEALTH Office Visit Level 2 Est 51103 Orders: albuterol, 2 puff(s), Inhalation, q6hr for wheezing, 1 EA, Refill(s) 1, [facility]/pharmacy #[id number], 180, cm, 07/26/21 12:56:00 [...] No., 12/14/2020 Family History Fibromyalgia: Mother. Normal [facility] Comment on above: Result Comment: Elec tronically Signed By: Saeed MEJIA DO\.br\Date and Time Signed: 11/28/21 15:55 EST Social History Date Type Detail Facility Start: 03-16-2022 End: 08-04-2022 Tobacco smoking status Never smoked tobacco (finding) [facility] Start: 2000 Sex Assigned At Female F [facility] Tobacco smoking status Never [facility] Sex Assigned At Female [facility] Vital Signs Date Time Vital Sign Value Performing Clinician Faci lity 08-04-2022 17:10-0400 Body height 180.34 cm DO Saeed Mejia Work Phone: [facility] 08-04-2022 17:10-0400 Body temperature 99.7 [degF] DO Saeed Mejia Work Phone: [facility] 08-04-2022 17:10-0400 Body weight 74 kg DO Saeed Mejia Work Phone: [facility] 08-04-2022 17:10-0400 Diastolic blood pressure 67 mm[Hg] DO Saeed Mejia Work Phone: [facility] 08-04-2022 17:10-0400 Heart rate 104 /min DO Saeed Mejia Work Phone: [facility] 08-04-2022 17:10-0400 Respiratory rate 18 /min DO Saeed Mejia Work Phone: [facility] 08-04-2022 17:10-0400 SaO2% (BldA) [Mass fraction] 97 % DO Saeed Mejia Work Phone: [facility] 08-04-2022 17:10-0400 Systolic blood pressure 122 mm[Hg] DO Saeed Mejia Work Phone: [facility] 03-16-2022 15:23-0400 Blood Pressure Location KEVIN SIDELL [facility] 03-16-2022 15:23-0400 Diastolic blood pressure 74 mm[Hg] KEVIN SIDELL [facility] 03-16-2022 15:23-0400 Heart rate 110 /min KEVIN SIDELL [facility] 03-16-2022 15:23-0400 SaO2% (BldA) [Mass fraction] 98 % KEVIN SIDELL [facility] 03-16-2022 15:23-0400 Systolic blood pressure 112 mm[Hg] KEVIN SIDELL [facility] Evaluation + Plan note Note Date & Type Note Facility Evaluation + Plan note No data available for this section [facility] Evaluation note Note Date & Type Note Facility Evaluation note No assessment information availa [facility] Work Phone: Hospital Discharge instructions Note Date & Type Note Facility Hospital Discharge instructions No data available for this section [facility] Chief Complaint and Reason for Visit [...] section and content) DATE CREATED AUTHOR 08/07/2022 [facility] DATE CREATED AUTHOR AUTHOR'S ORGANIZ ATION 09/01/2022 [facility] DATE CREATED AUTHOR AUTHOR'S ORGANIZ ATION 01/16/2023 [facility] DATE CREATED AUTHOR AUTHOR'S ORGANIZ ATION 04/12/2024 [facility] EPIC FOR RECORDS PERTAINING [...] BE BASED ON THE PRIMARY CLINICAL RECORDS. [facility] [employer] provides no warranty or guarantee of the accuracy or completeness of information in this document.
== END 2024-06-08 20:50 | disposition home or self-care (01) ==
LOC: LAB 20:49
PROVIDERS: PCP Family Medicine; Visit Provider Obstetrics & Gynecology
DX: Z01.419 Encounter for gynecological examination (general) (routine) without abnormal findings (principal)
CPT/HCPCS: 88175

== ENCOUNTER 2024-06-29 10:12 | Outpatient (OUT) | payer BC, SELFPAY ==
--- NOTE | 2024-06-29 10:14 | US_ITS ---
The [address] [address] Patient Name: BUDDY FAGAN MRN: [id number] date: 2000 Sex: F Assigned Patient Location: [facility] Current Patient Location: Accession/Order Number: [id number] Exam Date: 06/29/2024 10:15 Report Date: 06/30/2024 05:05 At the request of: VANESSA TOMAS Procedure: US OB cervical length EXAMINATION: US OB anatomy, US OB cervical length HISTORY: ANATOMY COMPARISON: No relevant comparison available. TECHNIQUE: Transabdominal sonographic examination was performed for obstetrical and evaluation. FINDINGS: Number: 1 Heart Rate: 146 bpm H.B. /min Amniotic Fluid Volume: Subjectively normal Placental Location: POSTERIOR with lower margin 6.6 cm from os. Cervix Length: 4.27 cm ; closed. BIOMETRY: BPD: 4.81 cm; 20 weeks 4 days; 54.50 % HC: 17.45 cm; 20 weeks 0 days; 22.20 % AC: 15.76 cm; 20 weeks 6 days; 59.90 % FL: 3.40 cm; 20 weeks 5 days; 50.80 % EFW:391.07 g; 61.30 % FL/AC: 21.57 FL/BPD: 70.69 HC/AC: 1.11 GESTATIONAL AGE: Age by EDC: 20 weeks 3 days Age by current US: 20 weeks 4 days MARYELLEN by current US: 2024-11-12 MARYELLEN by EDC: 2024-11-13 US/US OB cervical length IMPRESSION: 1. Single live intrauterine with growth detailed above. Electronically authenticated by: JUSTIN HERNANDEZ Date: 06/30/2024 05:05
--- NOTE | 2024-06-29 10:14 | US_ITS ---
[address] [address] Patient Name: BUDDY FAGAN MRN: [id number] date: 2000 Sex: F Assigned Patient Location: [facility] Current Patient Location: Accession/Order Number: [id number] Exam Date: 06/29/2024 10:15 Report Date: 06/30/2024 05:05 At the request of: VANESSA TOMAS Procedure: US OB anatomy EXAMINATION: US OB anatomy, US OB cervical length HISTORY: ANATOMY COMPARISON: No relevant comparison available. TECHNIQUE: Transabdominal sonographic examination was performed for obstetrical and evaluation. FINDINGS: Number: 1 Heart Rate: 146 bpm H.B. /min Amniotic Fluid Volume: Subjectively normal Placental Location: POSTERIOR with lower margin 6.6 cm from os. Cervix Length: 4.27 cm ; closed. BIOMETRY: BPD: 4.81 cm; 20 weeks 4 days; 54.50 % HC: 17.45 cm; 20 weeks 0 days; 22.20 % AC: 15.76 cm; 20 weeks 6 days; 59.90 % FL: 3.40 cm; 20 weeks 5 days; 50.80 % EFW:391.07 g; 61.30 % FL/AC: 21.57 FL/BPD: 70.69 HC/AC: 1.11 GESTATIONAL AGE: Age by EDC: 20 weeks 3 days Age by current US: 20 weeks 4 days MARYELLEN by current US: 2024-11-12 MARYELLEN by EDC: 2024-11-13 US/US OB anatomy IMPRESSION: 1. Single live intrauterine with growth detailed above. Electronically authenticated by: JUSTIN HERNANDEZ Date: 06/30/2024 05:05
--- OUTSIDE RECORDS SUMMARY | 2024-06-29 10:17 | XMS_ITS | CCD ---
Author Organization [facility] Care Team Providers Care Unix Developer Name Role Phone Saeed MEJIA Primary Care Physician DO Saeed Mejia Primary Care Provider ADOLFO Dean Emergency Provider Saeed Mejia Primary Care Unavailable Addy Dean Attending Unavailable Addy Dean Admitting Unavailable JOSELINE RAMOS Attending Unavailable JOSELINE RAMOS Admitting Unavailable REQUEST, DR NONE LISTED Primary Care Unavaila JOSELINE Lazo [...] Unavaila ble THOM, DR MENDEZ Admitting Unavailable WEST, DR ESCOBAR Chatman Consulting Unavailable THOM, DR MENDEZ Consulting Unavailable RICHARDRAE LORENZO Attending Unavailable THOM, VANESSA Attending Unavailable THOM, VANESSA Attending Unavailable Medications Current Medications Medication Drug Class(es) Dates Sig (Normalized) Sig (Original) amoxicillin 875 mg / clavulanate 125 mg oral tablet (1 source) Penicillin-class Antibacterial Start: 03-16-2022 End: 03-23-2022 take 1 tablet by mouth every twelve hours amoxicillin-clavul anate 875 mg-125 mg oral tablet = 1 tab(s), Oral, q12hr, X 7 day(s), # 14 tab(s), Refills(s) 0, [id number], cm, 03/16/22 15:28:00 EDT, Height/Length Dosing, 73.1, kg, 03/16/22 15:28:00 EDT, Weight Dosing Start Date: 03/16/22 Stop Date: 03/23/22 Status: Ordered loratadine 10 mg oral tablet (1 source) Start: 07-18-2020 take 1 tablet by mouth once daily loratadine 10 mg Tab 10 mg = 1 tab(s), Oral, Daily, # 15 tab(s), Refills(s) 1, Pharmacy: [id number], 180, cm, 07/18/20 9:00:00 [...] # 12 tab(s), Refills(s) 0, Pharmacy: [facility] #[id number], 180, cm, 03/16/22 15:28:00 EDT, [...] tab(s), Oral, Daily, 28 tab(s), Refill(s) 5, [id number], 180, cm, 07/26/21 12:56:00 [...] q6hr for wheezing, 1 EA, Refill(s) 1, [facility]/pharmacy #[id number], 180, cm, 07/26/21 12:56:00 EDT, [...] 01-01-2023 BASO # 0.1 103/ul Normal 0.0-0.1 [facility] Comment on above: Performed By: #### C BC #### [facility] [address] [place] [address] Dr. Maxx Downey Basophils/100 WBC (Bld) 0.4 % Normal 0.2-2.0 [facility] Comment on above: Performed By: #### C BC #### [facility] [address] [place] [address] Dr. Maxx Downey EO # 0.1 103/ul Normal 0.0-0.7 [facility] Comment on above: Performed By: #### C BC #### [facility] [address] [place] [address] Dr. Maxx Downey Eosinophils/100 WBC (Bld) 0.4 % Critically low 0.9-7.0 [facility] Comment on above: Performed By: #### C BC #### [facility] [address] [place] [address] Dr. Maxx Downey Erythrocyte distribution width (RBC) [Ratio] 13.7 % Normal 11.0-15.0 [facility] Comment on above: Performed By: #### C BC #### [facility] [address] [place] [address] Dr. Maxx Downey Hematocrit (Bld) [Volume fraction] 27.8 % Critically low 36.0-48.0 [facility] Comment on above: Performed By: #### C BC #### [facility] [address] [place] [address] Dr. Maxx Downey Hemoglobin (Bld) [Mass/Vol] 9.0 g/dL Critically low 12.0-16.0 [facility] Comment on above: Performed By: #### C BC #### [facility] [address] [place] [address] Dr. Maxx Downey IG # 0.11 10e3/ul Critically high 0.00-0.03 [facility] Comment on above: Performed By: #### C BC #### [facility] [address] [place] [address] Dr. Maxx Downey IG % 0.7 % Critically high 0.0-0.5 [facility] Comment on above: Performed By: #### C BC #### [facility] [address] [place] [address] Dr. Maxx Downey LYMPH # 2.9 103/ul Normal 1.2-3.8 [facility] Comment on above: Performed By: #### C BC #### [facility] [address] [place] [address] Dr. Maxx Downey Lymphocytes/100 WBC (Bld) 18.2 % Critically low 20.5-60.0 [facility] Comment on above: Performed By: #### C BC #### [facility] [address] [place] [address] Dr. Maxx Downey MANUAL DIFF REQ NO Normal [facility] Comment on above: Performed By: #### C BC #### [facility] [address] [place] [address] Dr. Maxx Downey MCH (RBC) [Entitic mass] 26.8 pg Normal 26.7-34.0 [facility] Comment on above: Performed By: #### C BC #### [facility] [address] [place] [address] Dr. Maxx Downey MCHC (RBC) [Mass/Vol] 32.4 g/dL Normal 29.9-35.2 [facility] Comment on above: Performed By: #### C BC #### [facility] [address] [place] [address] Dr. Maxx Downey MCV (RBC) [Entitic vol] 82.7 fL Normal 81.0-99.0 [facility] Comment on above: Performed By: #### C BC #### [facility] [address] [place] [address] Dr. Maxx Downey MONO # 1.2 103/ul Critically high 0.3-0.8 [facility] Comment on above: Performed By: #### C BC #### [facility] [address] [place] [address] Dr. Maxx Downey Monocytes/100 WBC (Bld) 7.6 % Normal 1.7-12.0 [facility] Comment on above: Performed By: #### C BC #### [facility] [address] [place] [address] Dr. Maxx Downey NEUT # 11.6 103/ul Critically high 1.4-6.5 [facility] Comment on above: Performed By: #### C BC #### [facility] [address] [place] [address] Dr. Maxx Downey Neutrophils/100 WBC (Bld) 72.7 % Normal 43.0-75.0 [facility] Comment on above: Performed By: #### C BC #### [facility] [address] [place] [address] Dr. Maxx Downey Platelet mean volume (Bld) [Entitic vol] 9.8 fL Normal 9.5-13.5 [facility] Comment on above: Performed By: #### C BC #### [facility] [address] [place] [address] Dr. Maxx Downey PLT 270 103/ul Normal 150-450 [facility] Comment on above: Performed By: #### C BC #### [facility] [address] [place] [address] Dr. Maxx Downey RBC 3.36 106/ul Critically low 4.20-5.40 [facility] Comment on above: Performed By: #### C BC #### [facility] [address] [place] [address] Dr. Maxx Downey WBC 15.9 103/ul Critically high 4.0-11.0 [facility] Comment on above: Performed By: #### C BC #### [facility] [address] [place] [address] Dr. Maxx Downey SCREENon 01-01-2023 SCREEN Negative Normal [facility] Comment on above: Performed By: #### F ETSCRN #### [facility] [address] [place] [address] Dr. Maxx Downey AMNISUREon 12-31-2022 AMNISURE Positive Abnormal NEGATIVE [facility] Comment on above: Performed By: #### D RUGRPD #### [facility] [address] [place] [address] Dr. Maxx Downey CBC AUTO DIFFon 12-31-2022 BASO # 0.1 103/ul Normal 0.0-0.1 [facility] Comment on above: Performed By: #### C BC #### [facility] [address] [place] [address] Dr. Maxx Downey Basophils/100 WBC (Bld) 0.4 % Normal 0.2-2.0 [facility] Comment on above: Performed By: #### C BC #### [facility] [address] [place] [address] Dr. Maxx Downey EO # 0.1 103/ul Normal 0.0-0.7 [facility] Comment on above: Performed By: #### C BC #### [facility] [address] [address] [address] Maxx Downey Eosinophils/100 WBC (Bld) 0.7 % Critically low 0.9-7.0 [facility] Comment on above: Performed By: #### C BC #### [facility] [address] [place] [address] Dr. Maxx Downey Erythrocyte distribution width (RBC) [Ratio] 13.7 % Normal 11.0-15.0 [facility] Comment on above: Performed By: #### C BC #### [facility] [address] [place] [address] Dr. Maxx Downey Hematocrit (Bld) [Volume fraction] 31.1 % Critically low 36.0-48.0 [facility] Comment on above: Performed By: #### C BC #### [facility] [address] [place] [address] Dr. Maxx Downey Hemoglobin (Bld) [Mass/Vol] 10.3 g/dL Critically low 12.0-16.0 [facility] Comment on above: Performed By: #### C BC #### [facility] [address] [place] [address] Dr. Maxx Downey IG # 0.08 10e3/ul Critically high 0.00-0.03 [facility] Comment on above: Performed By: #### C BC #### [facility] [address] [place] [address] Dr. Maxx Downey IG % 0.7 % Critically high 0.0-0.5 [facility] Comment on above: Performed By: #### C BC #### [facility] [address] [place] [address] Dr. Maxx Downey LYMPH # 2.8 103/ul Normal 1.2-3.8 [facility] Comment on above: Performed By: #### C BC #### [facility] [address] [place] [address] Dr. Maxx Downey Lymphocytes/100 WBC (Bld) 22.7 % Normal 20.5-60.0 [facility] Comment on above: Performed By: #### C BC #### [facility] [address] [place] [address] Dr. Maxx Downey MANUAL DIFF REQ NO Normal [facility] Comment on above: Performed By: #### C BC #### [facility] [address] [place] [address] Dr. Maxx Downey MCH (RBC) [Entitic mass] 26.4 pg Critically low 26.7-34.0 [facility] Comment on above: Performed By: #### C BC #### [facility] [address] [place] [address] Dr. Maxx Downey MCHC (RBC) [Mass/Vol] 33.1 g/dL Normal 29.9-35.2 [facility] Comment on above: Performed By: #### C BC #### [facility] [address] [place] [address] Dr. Maxx Downey MCV (RBC) [Entitic vol] 79.7 fL Critically low 81.0-99.0 [facility] Comment on above: Performed By: #### C BC #### [facility] [address] [place] [address] Dr. Maxx Downey MONO # 0.8 103/ul Normal 0.3-0.8 [facility] Comment on above: Performed By: #### C BC #### [facility] [address] [place] [address] Dr. Maxx Downey Monocytes/100 WBC (Bld) 6.5 % Normal 1.7-12.0 [facility] Comment on above: Performed By: #### C BC #### [facility] [address] [place] [address] Dr. Maxx Downey NEUT # 8.4 103/ul Critically high 1.4-6.5 [facility] Comment on above: Performed By: #### C BC #### [facility] [address] [place] [address] Dr. Maxx Downey Neutrophils/100 WBC (Bld) 69.0 % Normal 43.0-75.0 [facility] Comment on above: Performed By: #### C BC #### [facility] [address] [address] [address] Maxx Downey Platelet mean volume (Bld) [Entitic vol] 9.4 fL Critically low 9.5-13.5 [facility] Comment on above: Performed By: #### C BC #### [facility] [address] [address] [address] Maxx Downey PLT 296 103/ul Normal 150-450 [facility] Comment on above: Performed By: #### C BC #### [facility] [address] [address] [address] Maxx Downey RBC 3.90 106/ul Critically low 4.20-5.40 [facility] Comment on above: Performed By: #### C BC #### [facility] [address] [place] [address] Dr. Maxx Downey WBC 12.1 103/ul Critically high 4.0-11.0 [facility] Comment on above: Performed By: #### C BC #### [facility] [address] [place] [address] Dr. Maxx Downey DRUG SCREEN RAPID (URINE)on 12-31-2022 AMP Negative Normal NEGATIVE [facility] Comment on above: Performed By: #### D RUGRPD #### [facility] [address] [place] [address] Dr. Maxx Downey BAR Negative Normal NEGATIVE [facility] Comment on above: Performed By: #### D RUGRPD #### [facility] [address] [place] [address] Dr. Maxx Downey BUP Negative Normal NEGATIVE [facility] Comment on above: Performed By: #### D RUGRPD #### [facility] [address] [place] [address] Dr. Maxx Downey BZO Negative Normal NEGATIVE [facility] Comment on above: Performed By: #### D RUGRPD #### [facility] [address] [place] [address] Dr. Maxx Downey BRENDA Negative Normal NEGATIVE [facility] Comment on above: Performed By: #### D RUGRPD #### [facility] [address] [place] [address] Dr. Maxx Downey CUT-OFFS SEE BELOW Normal [facility] Comment on above: Result Comment: AMP [...] ng/mL Performed By: #### D RUGRPD #### [facility] [address] [place] [address] Dr. Maxx Downey DRUG CUT HEADER DRUG CLASS TEST SYSTEM CUT-OFF CONCENTRATIONS ARE FOLLOWS: Normal [facility] Comment on above: Performed By: #### D RUGRPD #### [facility] [address] [place] [address] Dr. Maxx Downey mAMP Negative Normal NEGATIVE [facility] Comment on above: Performed By: #### D RUGRPD #### [facility] [address] [place] [address] Dr. Maxx Downey MTD Negative Normal NEGATIVE [facility] Comment on above: Performed By: #### D RUGRPD #### [facility] [address] [place] [address] Dr. Maxx Downey OPI Negative Normal NEGATIVE [facility] Comment on above: Performed By: #### D RUGRPD #### [facility] [address] [place] [address] Dr. Maxx Downey OXY Negative Normal NEGATIVE [facility] Comment on above: Performed By: #### D RUGRPD #### [facility] [address] [place] [address] Dr. Maxx Downey PCP Negative Normal NEGATIVE [facility] Comment on above: Performed By: #### D RUGRPD #### [facility] [address] [place] [address] Dr. Maxx Downey PPX Negative Normal NEGATIVE [facility] Comment on above: Performed By: #### D RUGRPD #### [facility] [address] [place] [address] Dr. Maxx Downey TCA Negative Normal NEGATIVE [facility] Comment on above: Performed By: #### D RUGRPD #### [facility] [address] [place] [address] Dr. Maxx Downey THC Negative Normal NEGATIVE [facility] Comment on above: Performed By: #### D RUGRPD #### [facility] [address] [place] [address] Dr. Maxx Downey TYPE AND SCREENon 12-31-2022 TYPE AND SCREEN Negative Normal [facility] Comment on above: Performed By: #### T NS #### [facility] [address] [place] [address] Dr. Maxx Downey UA (CLEAN/CATCH) BRIM STIFFENER/MICRO I F IND.on 12-31-2022 Bilirubin Ql (U) Negative Normal NEGATIVE [facility] Comment on above: Performed By: #### H H #### [facility] [address] [place] [address] Dr. Maxx Downey Clarity (U) CLEAR Normal CLEAR [facility] Comment on above: Performed By: #### H H #### [facility] [address] [place] [address] Dr. Maxx Downey Color (U) LT. YELLOW Normal YELLOW [facility] Comment on above: Performed By: #### H H #### [facility] [address] [place] [address] Dr. Maxx Downey Glucose Ql (U) Negative Normal NEGATIVE [facility] Comment on above: Performed By: #### H H #### [facility] [address] [place] [address] Dr. Maxx Downey Hemoglobin Ql (U) Negative Normal NEGATIVE [facility] Comment on above: Performed By: #### H H #### [facility] [address] [place] [address] Dr. Maxx Downey Ketones Ql (U) Negative Normal NEGATIVE [facility] Comment on above: Performed By: #### H H #### [facility] [address] [place] [address] Dr. Maxx Downey LEUKOCYTES Negative Normal NEGATIVE [facility] Comment on above: Performed By: #### H H #### [facility] [address] [place] [address] Dr. Maxx Downey Nitrite Ql (U) Negative Normal NEGATIVE [facility] Comment on above: Performed By: #### H H #### [facility] [address] [place] [address] Dr. Maxx Downey pH (U) 5.5 [pH] Normal 5-9 [facility] Comment on above: Performed By: #### H H #### [facility] [address] [place] [address] Dr. Maxx Downey SPEC GRAVITY <=1.005 Abnormal 1.005-<=1.025 [facility] Comment on above: Performed By: #### H H #### [facility] [address] [place] [address] Dr. Maxx Downey UA PROTEIN Negative Normal NEGATIVE/ TRACE [facility] Comment on above: Performed By: #### H H #### [facility] [address] [place] [address] Dr. Maxx Downey UR MICRO IND NOT INDICATED Normal [facility] Comment on above: Performed By: #### H H #### [facility] [address] [place] [address] Dr. Maxx Downey Urobilinogen Qn (U) 0.2 {Dom'U}/dL Normal 0.2 - 1. 0 [facility] Comment on above: Performed By: #### H H #### [facility] [address] [place] [address] Dr. Maxx Downey US PREG GROWTHon 12-27-2022 [...] JUSTIN HERNANDEZ Date: 2022-12-27 10:02 Normal [facility] GROUP B STREP CULTUREon 12-02 S. agalactiae Ag Ql (Unsp spec) Culture Observations: NEGATIVE FOR GROUP B STREPTOCOCCUS. Normal [facility] Comment on above: Performed By: #### G BSCX #### [facility] [address] [place] [address] Dr. Maxx Downey US PREG GROWTHon 11-29-2022 [...] ESCOBAR PERES Date: 2022-11-29 16:16 Normal [facility] TYPE AND SCREENon 10-23-2022 TYPE AND SCREEN Negative Normal [facility] Comment on above: Performed By: #### T NS #### [facility] [address] [place] [address] Dr. Maxx Downey GLUCOSE - 1HRon 10-17-2022 Glucose [Mass/Vol] 98 mg/dL Normal 74-106 [facility] Comment on above: Performed By: #### G LU1HR #### [facility] [address] [place] [address] Dr. Maxx Downey HEMOGRAM AND PLATELon 2021 Hematocrit (Bld) [Volume fraction] 34.7 % Critically low 36.0-48.0 [facility] Comment on above: Performed By: #### H H #### [facility] [address] [place] [address] Dr. Maxx Downey Hemoglobin (Bld) [Mass/Vol] 11.4 g/dL Critically low 12.0-16.0 [facility] Comment on above: Performed By: #### H H #### [facility] [address] [place] [address] Dr. Maxx Downey MCH (RBC) [Entitic mass] 28.9 pg Normal 26.7-34.0 [facility] Comment on above: Performed By: #### H H #### [facility] [address] [place] [address] Dr. Maxx Downey MCHC (RBC) [Mass/Vol] 32.9 g/dL Normal 29.9-35.2 [facility] Comment on above: Performed By: #### H H #### [facility] [address] [place] [address] Dr. Maxx Downey MCV (RBC) [Entitic vol] 88.1 fL Normal 81.0-99.0 [facility] Comment on above: Performed By: #### H H #### [facility] [address] [address] [address] Maxx Downey PLT 258 103/ul Normal 150-450 [facility] Comment on above: Performed By: #### H H #### [facility] [address] [place] [address] Dr. Maxx Downey RBC 3.94 106/ul Critically low 4.20-5.40 [facility] Comment on above: Performed By: #### H H #### [facility] [address] [address] [address] Maxx Downey WBC 11.9 103/ul Critically high 4.0-11.0 [facility] Comment on above: Performed By: #### H H #### [facility] [address] [place] [address] Dr. Maxx Downey HEP B SURFACE ANTIGEN SCREEN on 10-09-2022 HBsAg Screen Negative Normal Negative [facility] Comment on above: Performed By: #### H H #### [facility] [address] [place] [address] Dr. Maxx Downey HEPATITIS C VIRUS AB W/ REFL EX QUANTon 10-09-2022 HCV AB <0.1 Normal 0.0-0.9 [facility] Comment on above: Performed By: #### H H #### [facility] [address] [place] [address] Dr. Maxx Downey Interpretation: Comment Normal [facility] Comment on above: Result Comment: Nega tive Not infected with HCV, unless recent infection is suspected or other evidence exists to indicate HCV infection. Performed By: #### H H #### [facility] [address] [place] [address] Dr. Maxx Downey HIV 1 AND 2 WITH REFLEXon HIV Screen 4th Generation wRfx Non-Reactive Normal Non Reactive [facility] Comment on above: Result Comment: HIV Negative HIV-1/HIV-2 antibodies and HIV-1 p24 antigen were NOT detected. There is no laboratory evidence of HIV infection. Performed By: #### H H #### [facility] [address] [place] [address] Dr. Maxx Downey RPR QUANTon 10-09-2022 Rapid Plasma Reagin, Quant Non-Reactive Normal NonRea<1:1 [facility] Comment on above: Result Comment: Charleen rowe Note: This test does not meet current guidelines for screening and diagnosis of syphilis. This test is intended for following treatment response in patients being treated for syphilis infection. To screen for syphilis infection, a reflex cascade that includes both RPR and a treponema-specific assay should be utilized, such as Treponema pallidum (Syphilis) Screening [place] (288144) or Rapid Plasma Reagin (RPR) Test With Reflex to Quantitative RPR and Confirmatory Treponema pallidum Antibodies ([id number]). Performed By: #### D RUGRPD #### [facility] [address] [place] [address] Dr. Maxx Downey RUBELLA AB IGGon 10-09-2022 Rubella Antibodies, IgG 1.52 index Normal Immune >0.99 [facility] Comment on above: Result Comment: Non- immune <0.90 Equivocal 0.90 - 0.99 Immune >0.99 Performed By: #### H H #### [facility] [address] [place] [address] Dr. Maxx Downey CBC AUTO DIFFon 10-08-2022 BASO # 0.1 103/ul Normal 0.0-0.1 [facility] Comment on above: Performed By: #### D RUGRPD #### [facility] [address] [place] [address] Dr. Maxx Downey Basophils/100 WBC (Bld) 0.5 % Normal 0.2-2.0 [facility] Comment on above: Performed By: #### D RUGRPD #### [facility] [address] [place] [address] Dr. Maxx Downey EO # 0.2 103/ul Normal 0.0-0.7 [facility] Comment on above: Performed By: #### D RUGRPD #### [facility] [address] [place] [address] Dr. Maxx Downey Eosinophils/100 WBC (Bld) 1.5 % Normal 0.9-7.0 [facility] Comment on above: Performed By: #### D RUGRPD #### [facility] [address] [address] [address] Maxx Downey Erythrocyte distribution width (RBC) [Ratio] 12.7 % Normal 11.0-15.0 [facility] Comment on above: Performed By: #### D RUGRPD #### [facility] [address] [place] [address] Dr. Maxx Downey Hematocrit (Bld) [Volume fraction] 34.8 % Critically low 36.0-48.0 [facility] [facility] Comment on above: Performed By: #### D RUGRPD #### [facility] [address] [place] [address] Dr. Maxx Downey Hemoglobin (Bld) [Mass/Vol] 11.6 g/dL Critically low 12.0-16.0 [facility] Comment on above: Performed By: #### D RUGRPD #### [facility] [address] [place] [address] Dr. Maxx Downey IG # 0.07 10e3/ul Critically high 0.00-0.03 [facility] Comment on above: Performed By: #### D RUGRPD #### [facility] [address] [place] [address] Dr. Maxx Downey IG % 0.6 % Critically high 0.0-0.5 [facility] Comment on above: Performed By: #### D RUGRPD #### [facility] [address] [address] [address] Maxx Downey LYMPH # 2.0 103/ul Normal 1.2-3.8 [facility] Comment on above: Performed By: #### D RUGRPD #### [facility] [address] [address] [address] Maxx Downey Lymphocytes/100 WBC (Bld) 15.7 % Critically low 20.5-60.0 [facility] Comment on above: Performed By: #### D RUGRPD #### [facility] [address] [place] [address] Dr. Maxx Downey MANUAL DIFF REQ NO Normal [facility] Comment on above: Performed By: #### D RUGRPD #### [facility] [address] [place] [address] Dr. Maxx Downey MCH (RBC) [Entitic mass] 29.4 pg Normal 26.7-34.0 [facility] Comment on above: Performed By: #### D RUGRPD #### [facility] [address] [place] [address] Dr. Maxx Downey MCHC (RBC) [Mass/Vol] 33.3 g/dL Normal 29.9-35.2 [facility] Comment on above: Performed By: #### D RUGRPD #### [facility] [address] [place] [address] Dr. Maxx Downey MCV (RBC) [Entitic vol] 88.3 fL Normal 81.0-99.0 [facility] Comment on above: Performed By: #### D RUGRPD #### [facility] [address] [place] [address] Dr. Maxx Downey MONO # 0.7 103/ul Normal 0.3-0.8 [facility] Comment on above: Performed By: #### D RUGRPD #### [facility] [address] [place] [address] Dr. Maxx Downey Monocytes/100 WBC (Bld) 5.6 % Normal 1.7-12.0 [facility] Comment on above: Performed By: #### D RUGRPD #### [facility] [address] [place] [address] Dr. Maxx Downey NEUT # 9.4 103/ul Critically high 1.4-6.5 [facility] Comment on above: Performed By: #### D RUGRPD #### [facility] [address] [place] [address] Dr. Maxx Downey Neutrophils/100 WBC (Bld) 76.1 % Critically high 43.0-75.0 [facility] Comment on above: Performed By: #### D RUGRPD #### [facility] [address] [place] [address] Dr. Maxx Downey Platelet mean volume (Bld) [Entitic vol] 9.7 fL Normal 9.5-13.5 [facility] Comment on above: Performed By: #### D RUGRPD #### [facility] [address] [address] [address] Maxx Downey PLT 263 103/ul Normal 150-450 [facility] Comment on above: Performed By: #### D RUGRPD #### [facility] [address] [address] [address] Maxx Downey RBC 3.94 106/ul Critically low 4.20-5.40 [facility] Comment on above: Performed By: #### D RUGRPD #### [facility] [address] [place] [address] Dr. Maxx Downey WBC 12.4 103/ul Critically high 4.0-11.0 [facility] Comment on above: Performed By: #### D RUGRPD #### [facility] [address] [place] [address] Dr. Maxx Downey CULTURE URINEon 10-08-2022 CULTURE URINE Culture Observations: LIGHT GROWTH OF MIXED GENITAL CHANELLE. NO POTENTIAL PATHOGENS SEEN. Normal [facility] Comment on above: Performed By: #### H H #### [facility] [address] [place] [address] Dr. Maxx Downey GLYCOHEMOGLOBIN A1Con 2021 ADA RECOMMENDATION SEE BELOW Normal [facility] Comment on above: Result Comment: ADA RECOMMENDED LIMIT 4.0 - 6.0 ADA THERAPEUTIC TARGET < 7.0 ACTION SUGGESTED > 7.0 Performed By: #### A 1C #### [facility] [address] [place] [address] Dr. Maxx Downey Glucose [Mass/Vol] 105 mg/dL Normal [facility] Comment on above: Performed By: #### A 1C #### [facility] [address] [place] [address] Dr. Maxx Downey HbA1c (Bld) [Mass fraction] 5.3 % Normal 4.5-6.2 [facility] Comment on above: Performed By: #### A 1C #### [facility] [address] [place], [place] [address] Dr. Maxx Downey TYPE AND SCREENon 10-08-2022 TYPE AND SCREEN Negative Normal [facility] Comment on above: Performed By: #### H H #### [facility] [address] [place], [place] [address] Dr. Maxx Downey US PREG ANATOMY SINGLEon [...] JUSTIN HERNANDEZ Date: 2022-08-22 17:16 Normal [facility] ED Note-Physicianon 08-07-20 22 ED Note-Physician [id number]. [id number] #1.00CD:127 Normal [facility] Lyme, Total Ab with Reflexon 08-04-2022 Lyme Total Antibody Negative Normal Negative [facility] Comment on above: Result Comment: Lyme Antibody Negative No laboratory evidence of infection with B. burgdorferi (Lyme disease). Negative results may occur in patients recently infected (less than or equal to 14 days) with B. burgdorferi. If recent infection is suspected, repeat testing on a new sample collected in 7 to 14 days is recommended. Performed at: - [facility] [address] [id number] Ecommerce Manager: Juan Miguel Bennett PhD, Phone: [phone] PERFORMED BY: [facility] [address] [place] [address] PATHOLOGIST CROWN CERAMIST BRIAN RIVAS M.D. Performed By: #### L [...] 2 to 4 weeks, only if needed [address] [place] [address] Additional Instructions: Patient Education Breast Tenderness Sinusitis, [...] (more content not included)... Normal [facility] Comment on above: Result Comment: Elec tronically [...] home: Medicines ? 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 ? Do not smoke. Avoid being around [...] (more content not included)... Normal [facility] Ambulatory Visit Summaryon 0 03-16-2022 Ambulatory Visit [...] treatment for. seasonal allergies Normal [facility] Family Medicine Video Visit - Telehealthon 11-28-2021 [...] Ordered: TELEHEALTH Office Visit Level 2 Est 93268 Orders: albuterol, 2 puff(s), Inhalation, q6hr for [...] Family History Fibromyalgia: Mother. Normal [facility] Comment on above: Result Comment: Elec tronically Signed By: Saeed MEJIA DO\.br\Date and Time Signed: 11/28/21 15:55 EST Vital Signs Date Time Vital Sign Value Performing Clinician [facility] 08-04-2022 17:10-0400 Body height 180.34 cm DO Saeed Mejia Work Phone: [facility] 08-04-2022 17:10-0400 Body temperature 99.7 [degF] DO Saeed Mejia Work Phone: [facility] 08-04-2022 17:10-0400 Body weight 74 kg DO Saeed Mejia Work Phone: [facility] 08-04-2022 17:10-0400 Diastolic blood pressure 67 mm[Hg] DO Saeed Mejia Work Phone: [facility] 08-04-2022 17:10-0400 Heart rate 104 /min DO Saeed Mejia Work Phone: [facility] 08-04-2022 17:10-0400 Respiratory rate 18 /min DO Saeed Mejia Work Phone: [facility] 08-04-2022 17:10-0400 SaO2% (BldA) [Mass fraction] 97 % DO Saeed Mejia Work Phone: [facility] 08-04-2022 17:10-0400 Systolic blood pressure 122 mm[Hg] DO Saeed Mejia Work Phone: [facility] 03-16-2022 15:23-0400 Blood Pressure Location KEVIN SIDELL [facility] 03-16-2022 15:23-0400 Diastolic blood pressure 74 mm[Hg] KEVIN SIDELL [facility] 03-16-2022 15:23-0400 Heart rate 110 /min KEVIN SIDELL [facility] 03-16-2022 15:23-0400 SaO2% (BldA) [Mass fraction] 98 % KEVIN SIDELL [facility] 03-16-2022 15:23-0400 Systolic blood pressure 112 mm[Hg] KEVIN SIDELL [facility] Encounters Encounter Date Encounter Type Care Provider Facility Start: 06-08-2024 End: 06-08-2024 ambulatory VANESSA TOMAS Not Available Start: 05-11-2024 End: 05-11-2024 ambulatory VANESSA TOMAS Not Available Start: 04-10-2024 End: 04-10-2024 ambulatory RAE RAMOS [...] Start: 10-17-2022 End: 10-18-[address] SAEED MEJAI Facility:[facility] Start: 10-08-2022 End: 10-09-[address] VANESSA TOMAS Facility:[facility] Start: 08-22-2022 End: 08-23-[address] VANESSA TOMAS Facility:[facility] Start: 08-04-2022 End: 08-04-2022 Emergency department patient visit Saeed Mejia Facility:[facility] Start: 08-04-2022 End: 08-04-2022 Emergency department patient visit DO Saeed Mejia Work Phone: [facility] Start: 03-16-2022 End: 03-16-2022 Patient encounter procedure KEVIN BUCKNER [facility] Procedures Date Procedure Procedure Detail Performing Clinician Start: 12-31-2022 Delivery of Products of Conception, External Approach JOSELINE RAMOS Start: 12-31-2022 Division of Female Perineum, External Approach JOSELINE RAMOS Start: 12-31-2022 Repair Perineum Musc le, Open Approach JOSELINE RAMOS arm surgery KEVIN BUCKNER Plan of Treatment Date Care Activity Detail Author Start: 08-04-2022 Borrelia burgdorferi DNA assay [facility] Work Phone: Borrelia burgdorferi Ab [Interpretation] in Serum [facility] Work Phone: Borrelia burgdorferi IgG Ab [Presence] in Serum or Plasma by Immunoassay [facility] Work Phone: Borrelia burgdorferi IgG+IgM Ab [Presence] in Serum by Immunoassay [facility] Work Phone: Borrelia burgdorferi IgM Ab [Presence] in Serum or Plasma by Immunoassay [facility] Work Phone: Patient Education Skin Rash ED [facility] Work Phone: Patient referral [facility] Work Phone: Payers Date Payer Category Payer Unknown [id number] 2022 Self-pay [id number] 1998 Unknown [id number] 2.16.84 [id number] 1998 Unknown [id number] 2.16.84 [id number] 1998 Unknown [id number] 2.16.84 0.1.232029.3.579.2.593 1998 Unknown [id number] 2.16.84 0.1.958339.3.579.2.593 1998 Unknown [id number] .16.84 0.1.539116.3.579.2.593 1998 Unknown [id number] 2.16.84 0.1.167896.3.579.2.593 1998 Unknown [id number] 2.16.84 0.1.583397.3.579.2.593 1998 Unknown [id number] 2.16.84 0.1.683903.3.579.2.593 1998 Unknown [id number] 2.16.84 0.1.464766.3.579.2.593 1998 Unknown [id number] 2.16.84 0.1.505577.3.579.2.593 1998 Unknown [id number] 2.16.84 0.1.143157.3.579.2.1259 1998 Unknown [id number] 2.16.84 0.1.636369.3.579.2.1259 1998 Unknown [id number] 2.16.84 0.1.067196.3.579.2.1259 1998 Unknown [id number] 2.16.84 0.1.155026.3.579.2.1259 1959 Private Health Insurance [id number] Unknown [id number] 2.16.8 [id number] Social History Date Type Detail Facility Start: 03-16-2022 End: 08-04-2022 Tobacco smoking status Never smoked tobacco (finding) [facility] Tobacco smoking status Never [facility] Sex Assigned At Female [facility] Start: 2000 Sex Assigned At Female F [facility] Evaluation + Plan note Note Date & Type Note Facility Evaluation + Plan note No data available for this section [facility] Evaluation note Note Date & Type Note Facility Evaluation note No assessment information availa [facility] Work Phone: Hospital Discharge instructions Note Date & Type Note Facility Hospital Discharge instructions No data available for this section [facility] Chief Complaint and Reason for Visit Chief [...] Inactive Member Role Status Dates Saeed Mejia , Primary Care Provider Active Addy Dean APRN Emergency Provider Active Team Status: Active Member Role Status Dates Saeed Mejia , Primary Care Provider Active Goals (unrecognized section and content) Goals may be documented in a n alternate section INFORMATION SOURCE (unrecogn ized section and content) DATE CREATED AUTHOR 08/07/2022 [facility] DATE CREATED AUTHOR AUTHOR'S ORGANIZ ATION 09/01/2022 [facility] DATE CREATED AUTHOR AUTHOR'S ORGANIZ ATION 01/16/2023 [facility] DATE CREATED AUTHOR AUTHOR'S ORGANIZ ATION 06/09/2024 [facility] EPIC FOR RECORDS PERTAINING [...] BE BASED ON THE PRIMARY CLINICAL RECORDS. [employer] provides no warranty or guarantee of the accuracy or completeness of information in this document.
== END 2024-06-29 10:13 | disposition home or self-care (01) ==
LOC: NOMS 10:13
PROVIDERS: PCP Family Medicine; Visit Provider Obstetrics & Gynecology
DX: Z36.89 Encounter for other specified antenatal screening (principal); Z3A.20 20 weeks gestation of pregnancy
CPT/HCPCS: 76805; 76817

== ENCOUNTER 2024-08-24 13:22 | Outpatient (OUT) | payer BC, SELFPAY ==
[2024-08-24 13:48] LABS: Basophils Absolute Auto 0.1 10^3/uL (0.0-0.1); Basophils Percent Auto 0.5 % (0.2-2.0); Eosinophils Absolute Auto 0.1 10^3/uL (0.0-0.7); Hematocrit 32.1 % (36.0-48.0); Immature Granulocytes Abs Auto 0.04 10^3/uL (0.00-0.03); Immature Granulocytes Pct Auto 0.3 % (0.0-0.5); Lymphocytes Absolute Auto 2.3 10^3/uL (1.2-3.8); Lymphocytes Percent Auto 20.2 % (20.5-60.0); Mean Corpuscular HGB Conc 31.2 g/dL (29.9-35.2); Mean Corpuscular Volume 86.5 fL (81.0-99.0); Mean Platelet Volume 10.1 fL (9.5-13.5); Monocytes Absolute Auto 0.6 10^3/uL (0.3-0.8); Monocytes Percent Auto 5.2 % (1.7-12.0); Neutrophils Absolute Auto 8.4 10^3/uL (1.4-6.5); Neutrophils Percent Auto 72.8 % (43.0-75.0); Platelet Count 267 10^3/uL (150-450); Red Blood Count 3.71 10^6/uL (4.20-5.40); Red Cell Distribution Width 12.8 % (11.0-15.0); White Blood Count 11.6 10^3/uL (4.0-11.0)
[2024-08-24 14:43] LABS: Glucose 1 Hour 100 mg/dL (<130)
== END 2024-08-24 13:23 | disposition home or self-care (01) ==
LOC: LAB 13:23
PROVIDERS: PCP Family Medicine; Visit Provider Obstetrics & Gynecology
DX: Z34.90 Encounter for supervision of normal pregnancy, unspecified, unspecified trimester (principal)
CPT/HCPCS: 36415; 82950; 85025

== ENCOUNTER 2024-08-31 07:33 | Outpatient (RCR) | payer BC, SELFPAY ==
--- NOTE | 2024-08-31 09:19 | PC.NURSE ---
0910 Arrival ambulatory for rhogam, patient states she had labs drawn on saturday08/29/2024. No blood type noted in chart from this date, only antibody screen, lab notified, lab states she needs more labs drawn, patient taken to lab for lab draw, patient had prior appt this am and is not able to wait around for rhogam, she will have labs drawn, then return at another time for rhogam.
[2024-08-31 09:33] VITALS: BP 114/73; PULSE 78; TEMP 36.6; O2SAT 96
[2024-08-31] MEDS: RHO(D) IMMUNE GLOBULIN 1,500 UNIT SYRINGE 1500 UNIT IM (09:40)
--- NOTE | 2024-08-31 09:49 | PC.NURSE ---
0945 Rhogam IM rt dorsal gluteal as ordered, patient tolerated well.
--- NOTE | 2024-08-31 09:50 | PC.NURSE ---
tolerated injection without any s/s of reaction, released ambulatory
== END 2024-08-31 23:59 | disposition home or self-care (01) ==
LOC: INF 07:33
PROVIDERS: PCP Family Medicine; Visit Provider Physician Assistant
DX: O26.893 Other specified pregnancy related conditions, third trimester (principal); Z67.91 Unspecified blood type, Rh negative; Z3A.00 Weeks of gestation of pregnancy not specified
CPT/HCPCS: 36415; 86850; 86870; 86900; 86901; 96372; J2791

== ENCOUNTER 2024-09-08 09:11 | Outpatient (OUT) | payer BC, SELFPAY ==
--- NOTE | 2024-09-08 09:10 | US_ITS ---
[address] [address] Patient Name: BUDDY FAGAN MRN: [id number] date: 2000 Sex: F Assigned Patient Location: [facility] Current Patient Location: [facility] Accession/Order Number: [id number] Exam Date: 09/08/2024 09:10 Report Date: 09/08/2024 12:32 At the request of: VANESSA TOMAS Procedure: US OB growth EXAMINATION: US OB growth HISTORY: LARGE FOR GESTATIONAL AGE COMPARISON: Ultrasound OB anatomy 06/29/2024 FINDINGS: Heart Rate: 172 bpm Amniotic Fluid Volume: 11.8 cm; normal range. Number: 1 Position: CEPHALIC BIOMETRY: BPD: 7.69 cm; 30 weeks 6 days; 47.20 % HC: 28.54 cm; 31 weeks 2 days; 34.80 % AC: 27.01 cm; 31 weeks 1 day; 62.20 % FL: 5.96 cm; 31 weeks 0 days; 49.20 % EFW: 1740.64 g; 55.60 % FL/AC: 22.07 FL/BPD: 77.50 HC/AC: 1.06 GESTATIONAL AGE: Age by EDC: 30 weeks 4 days MARYELLEN by EDC: 2024-11-13 Age by US: 31 weeks 1 day MARYELLEN by US: 2024-11-09 US/US OB growth IMPRESSION: 1. Single live intrauterine with growth detailed above. Electronically authenticated by: JUSTIN HERNANDEZ Date: 09/08/2024 12:32
--- OUTSIDE RECORDS SUMMARY | 2024-09-08 09:19 | XMS_ITS | CCD ---
Author Organization [facility] Care Team Providers Care Bag Mender Name Role Phone Saeed MEJIA Primary Care Physician DO Saeed Mejia Primary Care Provider ADOLFO Dean Emergency Provider [phone] Saeed Mejia Primary Care Unavailable Addy Dean [...] Consulting Unavailable THOM, DR MENDEZ Admitting Unavailable THMO, DR MENDEZ Attending Unavailable ROBERTO, DR SAEED Rosenthal Primary Care Unavailable ROBERTO, DR SAEED Rosenthal Primary Care Unavailable THOM, DR MENDEZ Attending Unavailable THOM, DR MENDEZ Admitting Unavailable THOM, DR MENDEZ Consulting Unavailable THOM, DR MENDEZ Attending Unavailable REQUEST, DR POWELL LISTED Primary Care Unavaila ble THOM, DR MENDEZ Admitting Unavailable DERBY, DR ESCOBAR Chatman Consulting Unavailable THOM, DR MENDEZ Consulting Unavailable SARAH RAMOS Attending Unavailable THOM, VANESSA Attending Unavailable THOM, VANESSA Attending Unavailable SARAH RAMOS Attending Unavailable THOM, VANESSA Attending Unavailable Unavailable Primary Care Provider Unavailabl e Medications Current Medications Medication Drug Class(es) Dates Sig (Normalized) Sig (Original) amoxicillin 875 mg / clavulanate 125 mg oral tablet (1 source) Penicillin-class Antibacterial Start: 03-16-2022 End: 03-23-2022 take 1 tablet by mouth every twelve hours amoxicillin-clavul anate 875 mg-125 mg oral tablet = 1 tab(s), Oral, q12hr, X 7 day(s), # 14 tab(s), Refills(s) 0, [id number] 180, cm, 03/16/22 15:28:00 EDT, Height/Length Dosing, 73.1, kg, 03/16/22 15:28:00 EDT, Weight Dosing Start Date: 03/16/22 Stop Date: 03/23/22 Status: Ordered loratadine 10 mg oral tablet (1 source) Start: 07-18-2020 take 1 tablet by mouth once daily loratadine 10 mg Tab 10 mg = 1 tab(s), Oral, Daily, # 15 tab(s), Refills(s) 1, Pharmacy: [id number], 180, cm, 07/18/20 [...] # 12 tab(s), Refills(s) 0, Pharmacy: [id number], 180, cm, 03/16/22 15:28:00 EDT, Height/Length Dosing, 73.1, kg, 03/16/22 15:28:00 EDT, Weight Dosing Start Date: 03/16/22 Status: Ordered Pnv Cmb#95-Ferrous Fumarate-Fa () 28 mg iron- 800 mcg Tablet (1 source) Start: 08-04-2022 take 1 tablet by mouth once daily Pnv Cmb#95-Ferrous Fumarate-Fa () 28 mg iron- 800 mcg Tablet Active 1 TAB PO Daily August 04, 2022 12:00am Nqvlucml-Bkk-Ry-FA (, w/Iron & FA,) 27-0.8 MG tablet (1 source) Wajdvfmg-Byu-Hy-FA (, w/Iron & FA,) 27-0.8 MG tablet 1 (one) time each day at the same time Active Sprintec oral tablet (1 source) Start: 01-16-2022 take 1 tablet by mouth once daily Sprintec oral tablet 1 tab(s), Oral, Daily, 28 tab(s), Refill(s) 5, [id number], 180, cm, 07/26/21 [...] for wheezing, 1 EA, Refill(s) 1, [facility] #[id number], 180, cm, 07/26/21 12:56:00 EDT, Height/Length [...] Test Name Value Interpretation Reference Range Facility ALL MISCELLANEOUS TESTon MISCELLANEOUS TEST COMMENT . [facility] Comment on above: Test Ordered: [id number] Antibody Identification Antibody Id. #1 Comment Reference Range: . An antibody identification panel was non-reactive. There was no evidence of the presence of atypical red cell antibody. Jose Titer #1 FUNDER NOLAB Reference Range: . Antibody Id. #2 FUNDER NOLAB Reference Range: . Jose Titer #2 FUNDER NOLAB Reference Range: . Performed at: [address] [place], [place] [id number] Process Controls Technician: Juan Miguel Bennett PhD, Phone: [phone] ANTIBODY IDENTIFICATION [facility] CBC AUTO DIFFon 01-01-2023 BASO # 0.1 103/ul Normal 0.0-0.1 [facility] Comment on above: Performed By: #### C BC #### [facility] [address] [place] [address] Dr. Maxx Downey Basophils/100 WBC (Bld) 0.4 % Normal 0.2-2.0 [facility] Comment on above: Performed By: #### C BC #### [facility] [address] [place] [address] Dr. Maxx Downey EO # 0.1 103/ul Normal 0.0-0.7 [facility] Comment on above: Performed By: #### C BC #### [facility] [address] [place] [address] Dr. Maxx Downey Eosinophils/100 WBC (Bld) 0.4 % Critically low 0.9-7.0 [facility] Comment on above: Performed By: #### C BC #### [facility] [address] [place] [address] Dr. Maxx Downey Erythrocyte distribution width (RBC) [Ratio] 13.7 % Normal 11.0-15.0 [facility] Comment on above: Performed By: #### C BC #### [facility] [address] [place] [address] Dr. Maxx Downey Hematocrit (Bld) [Volume fraction] 27.8 % Critically low 36.0-48.0 [facility] Comment on above: Performed By: #### C BC #### [facility] [address] [place] [address] Dr. Maxx Downey Hemoglobin (Bld) [Mass/Vol] 9.0 g/dL Critically low 12.0-16.0 [facility] Comment on above: Performed By: #### C BC #### [facility] [address] [place] [address] Dr. Maxx Downey IG # 0.11 10e3/ul Critically high 0.00-0.03 [facility] Comment on above: Performed By: #### C BC #### [facility] [address] [place] [address] Dr. Maxx Downey IG % 0.7 % Critically high 0.0-0.5 [facility] Comment on above: Performed By: #### C BC #### [facility] [address] [place] [address] Dr. Maxx Downey LYMPH # 2.9 103/ul Normal 1.2-3.8 [facility] Comment on above: Performed By: #### C BC #### [facility] [address] [place] [address] Dr. Maxx Downey Lymphocytes/100 WBC (Bld) 18.2 % Critically low 20.5-60.0 [facility] Comment on above: Performed By: #### C BC #### [facility] [address] [place] [address] Dr. Maxx Downey MANUAL DIFF REQ NO Normal [facility] Comment on above: Performed By: #### C BC #### [facility] [address] [place] [address] Dr. Maxx Downey MCH (RBC) [Entitic mass] 26.8 pg Normal 26.7-34.0 [facility] Comment on above: Performed By: #### C BC #### [facility] [address] [place] [address] Dr. Maxx Downey MCHC (RBC) [Mass/Vol] 32.4 g/dL Normal 29.9-35.2 [facility] Comment on above: Performed By: #### C BC #### [facility] [address] [place] [address] Dr. Maxx Downey MCV (RBC) [Entitic vol] 82.7 fL Normal 81.0-99.0 [facility] Comment on above: Performed By: #### C BC #### [facility] [address] [place] [address] Dr. Maxx Downey MONO # 1.2 103/ul Critically high 0.3-0.8 [facility] Comment on above: Performed By: #### C BC #### [facility] [address] [address] [address] Maxx Downey Monocytes/100 WBC (Bld) 7.6 % Normal 1.7-12.0 [facility] Comment on above: Performed By: #### C BC #### [facility] [address] [address] [address] Maxx Downey NEUT # 11.6 103/ul Critically high 1.4-6.5 [facility] Comment on above: Performed By: #### C BC #### [facility] [address] [address] [address] Maxx Downey Neutrophils/100 WBC (Bld) 72.7 % Normal 43.0-75.0 [facility] Comment on above: Performed By: #### C BC #### [facility] [address] [place] [address] Dr. Maxx Downey Platelet mean volume (Bld) [Entitic vol] 9.8 fL Normal 9.5-13.5 [facility] Comment on above: Performed By: #### C BC #### [facility] [address] [place] [address] Dr. Maxx Downey PLT 270 103/ul Normal 150-450 [facility] Comment on above: Performed By: #### C BC #### [facility] [address] [place] [address] Dr. Maxx Downey RBC 3.36 106/ul Critically low 4.20-5.40 [facility] Comment on above: Performed By: #### C BC #### [facility] [address] [place] [address] Dr. Maxx Downey WBC 15.9 103/ul Critically high 4.0-11.0 [facility] Comment on above: Performed By: #### C BC #### [facility] [address] [place] [address] Dr. Maxx Downey SCREENon 01-01-2023 SCREEN Negative Normal [facility] Comment on above: Performed By: #### F ETSCRN #### [facility] [address] [place] [address] Dr. Maxx Downey AMNISUREon 12-31-2022 AMNISURE Positive Abnormal NEGATIVE [facility] Comment on above: Performed By: #### D RUGRPD #### [facility] [address] [place] [address] Dr. Maxx Downey CBC AUTO DIFFon 12-31-2022 BASO # 0.1 103/ul Normal 0.0-0.1 [facility] Comment on above: Performed By: #### C BC #### [facility] [address] [place] [address] Dr. Maxx Downey Basophils/100 WBC (Bld) 0.4 % Normal 0.2-2.0 [facility] Comment on above: Performed By: #### C BC #### [facility] [address] [place] [address] Dr. Maxx Downey EO # 0.1 103/ul Normal 0.0-0.7 [facility] Comment on above: Performed By: #### C BC #### [facility] [address] [place] [address] Dr. Maxx Downey Eosinophils/100 WBC (Bld) 0.7 % Critically low 0.9-7.0 [facility] Comment on above: Performed By: #### C BC #### [facility] [address] [place] [address] Dr. Maxx Downey Erythrocyte distribution width (RBC) [Ratio] 13.7 % Normal 11.0-15.0 [facility] Comment on above: Performed By: #### C BC #### [facility] [address] [place] [address] Dr. Maxx Downey Hematocrit (Bld) [Volume fraction] 31.1 % Critically low 36.0-48.0 [facility] Comment on above: Performed By: #### C BC #### [facility] [address] [place] [address] Dr. Maxx Downey Hemoglobin (Bld) [Mass/Vol] 10.3 g/dL Critically low 12.0-16.0 [facility] Comment on above: Performed By: #### C BC #### [facility] [address] [address] [address] Maxx Downey IG # 0.08 10e3/ul Critically high 0.00-0.03 [facility] Comment on above: Performed By: #### C BC #### [facility] [address] [place] [address] Dr. Maxx Downey IG % 0.7 % Critically high 0.0-0.5 [facility] Comment on above: Performed By: #### C BC #### [facility] [address] [place] [address] Dr. Maxx Downey LYMPH # 2.8 103/ul Normal 1.2-3.8 [facility] Comment on above: Performed By: #### C BC #### [facility] [address] [place] [address] Dr. Maxx Downey Lymphocytes/100 WBC (Bld) 22.7 % Normal 20.5-60.0 [facility] Comment on above: Performed By: #### C BC #### [facility] [address] [place] [address] Dr. Maxx Downey MANUAL DIFF REQ NO Normal [facility] Comment on above: Performed By: #### C BC #### [facility] [address] [place] [address] Dr. Maxx Downey MCH (RBC) [Entitic mass] 26.4 pg Critically low 26.7-34.0 [facility] Comment on above: Performed By: #### C BC #### [facility] [address] [place] [address] Dr. Maxx Downey MCHC (RBC) [Mass/Vol] 33.1 g/dL Normal 29.9-35.2 [facility] Comment on above: Performed By: #### C BC #### [facility] [address] [place] [address] Dr. Maxx Downey MCV (RBC) [Entitic vol] 79.7 fL Critically low 81.0-99.0 [facility] Comment on above: Performed By: #### C BC #### [facility] [address] [address] [address] Maxx Downey MONO # 0.8 103/ul Normal 0.3-0.8 [facility] Comment on above: Performed By: #### C BC #### [facility] [address] [address] [address] Maxx Downey Monocytes/100 WBC (Bld) 6.5 % Normal 1.7-12.0 [facility] Comment on above: Performed By: #### C BC #### [facility] [address] [place] [address] Dr. Maxx Downey NEUT # 8.4 103/ul Critically high 1.4-6.5 [facility] Comment on above: Performed By: #### C BC #### [facility] [address] [place] [address] Dr. Maxx Downey Neutrophils/100 WBC (Bld) 69.0 % Normal 43.0-75.0 [facility] Comment on above: Performed By: #### C BC #### [facility] [address] [place] [address] Dr. Maxx Downey Platelet mean volume (Bld) [Entitic vol] 9.4 fL Critically low 9.5-13.5 [facility] Comment on above: Performed By: #### C BC #### [facility] [address] [place] [address] Dr. Maxx Downey PLT 296 103/ul Normal 150-450 [facility] Comment on above: Performed By: #### C BC #### [facility] [address] [place] [address] Dr. Maxx Downey RBC 3.90 106/ul Critically low 4.20-5.40 [facility] Comment on above: Performed By: #### C BC #### [facility] [address] [place] [address] Dr. Maxx Downey WBC 12.1 103/ul Critically high 4.0-11.0 [facility] Comment on above: Performed By: #### C BC #### [facility] [address] [place] [address] Dr. Maxx Downey DRUG SCREEN RAPID (URINE)on 12-31-2022 AMP Negative Normal NEGATIVE [facility] Comment on above: Performed By: #### D RUGRPD #### [facility] [address] [place] [address] Dr. Maxx Downey BAR Negative Normal NEGATIVE [facility] Comment on above: Performed By: #### D RUGRPD #### [facility] [address] [place] [address] Dr. Maxx Downey BUP Negative Normal NEGATIVE [facility] Comment on above: Performed By: #### D RUGRPD #### [facility] [address] [place] [address] Dr. Maxx Downey BZO Negative Normal NEGATIVE [facility] Comment on above: Performed By: #### D RUGRPD #### [facility] [address] [place] [address] Dr. Maxx Downey BRENDA Negative Normal NEGATIVE [facility] Comment on above: Performed By: #### D RUGRPD #### [facility] [address] [place] [address] Dr. Maxx Downey CUT-OFFS SEE BELOW Normal [facility] Comment on above: Result Comment: [...] ng/mL Performed By: #### D RUGRPD #### [facility] [address] [place] [address] Dr. Maxx Downey DRUG CUT HEADER DRUG CLASS TEST SYSTEM CUT-OFF CONCENTRATIONS ARE FOLLOWS: Normal [facility] Comment on above: Performed By: #### D RUGRPD #### [facility] [address] [address] [address] Maxx Downey mAMP Negative Normal NEGATIVE [facility] Comment on above: Performed By: #### D RUGRPD #### [facility] [address] [address] [address] Maxx Downey MTD Negative Normal NEGATIVE [facility] Comment on above: Performed By: #### D RUGRPD #### [facility] [address] [address] [address] Maxx Downey OPI Negative Normal NEGATIVE [facility] Comment on above: Performed By: #### D RUGRPD #### [facility] [address] [place] [address] Dr. Maxx Downey OXY Negative Normal NEGATIVE [facility] Comment on above: Performed By: #### D RUGRPD #### [facility] [address] [place] [address] Dr. Maxx Downey PCP Negative Normal NEGATIVE [facility] Comment on above: Performed By: #### D RUGRPD #### [facility] [address] [place] [address] Dr. Maxx Downey PPX Negative Normal NEGATIVE [facility] Comment on above: Performed By: #### D RUGRPD #### [facility] [address] [place] [address] Dr. Maxx Downey TCA Negative Normal NEGATIVE [facility] Comment on above: Performed By: #### D RUGRPD #### [facility] [address] [place] [address] Dr. Maxx Downey THC Negative Normal NEGATIVE [facility] Comment on above: Performed By: #### D RUGRPD #### [facility] [address] [place] [address] Dr. Maxx oDwney TYPE AND SCREENon 12-31-2022 TYPE AND SCREEN Negative Normal [facility] Comment on above: Performed By: #### T NS #### [facility] [address] [place] [address] Dr. Maxx Downey UA (CLEAN/CATCH) ASSOCIATE ORACLE RETAIL/MICRO I F IND.on 12-31-2022 Bilirubin Ql (U) Negative Normal NEGATIVE [facility] Comment on above: Performed By: #### H H #### [facility] [address] [place] [address] Dr. Maxx Downey Clarity (U) CLEAR Normal CLEAR [facility] Comment on above: Performed By: #### H H #### [facility] [address] [place] [address] Dr. Maxx Downey Color (U) LT. YELLOW Normal YELLOW [facility] Comment on above: Performed By: #### H H #### [facility] [address] [place] [address] Dr. Maxx Downey Glucose Ql (U) Negative Normal NEGATIVE [facility] Comment on above: Performed By: #### H H #### [facility] [address] [place] [address] Dr. Maxx Downey Hemoglobin Ql (U) Negative Normal NEGATIVE [facility] Comment on above: Performed By: #### H H #### [facility] [address] [place] [address] Dr. Maxx Downey Ketones Ql (U) Negative Normal NEGATIVE [facility] Comment on above: Performed By: #### H H #### [facility] [address] [place] [address] Dr. Maxx Downey LEUKOCYTES Negative Normal NEGATIVE [facility] Comment on above: Performed By: #### H H #### [facility] [address] [place] [address] Dr. Maxx Downey Nitrite Ql (U) Negative Normal NEGATIVE [facility] Comment on above: Performed By: #### H H #### [facility] [address] [place] [address] Dr. Maxx Downey pH (U) 5.5 [pH] Normal 5-9 [facility] Comment on above: Performed By: #### H H #### [facility] [address] [place] [address] Dr. Maxx Downey SPEC GRAVITY <=1.005 Abnormal 1.005-<=1.025 [facility] Comment on above: Performed By: #### H H #### [facility] [address] [address] [address] Maxx Downey UA PROTEIN Negative Normal NEGATIVE/ TRACE [facility] Comment on above: Performed By: #### H H #### [facility] [address] [address] [address] Maxx Downey UR MICRO IND NOT INDICATED Normal [facility] Comment on above: Performed By: #### H H #### [facility] [address] [address] [address] Maxx Downey Urobilinogen Qn (U) 0.2 {Dom'U}/dL Normal 0.2 - 1. 0 [facility] Comment on above: Performed By: #### H H #### [facility] [address] [place] [address] Dr. Maxx Downey US PREG GROWTHon 12-27-2022 [...] JUSTIN HERNANDEZ Date: 2022-12-27 10:02 Normal [facility] GROUP B STREP CULTUREon 12-02 S. agalactiae Ag Ql (Unsp spec) Culture Observations: NEGATIVE FOR GROUP B STREPTOCOCCUS. Normal [facility] Comment on above: Performed By: #### G BSCX #### [facility] [address] [address] [address] Maxx Downey US PREG GROWTHon 11-29-2022 [...] ESCOBAR PERES Date: 2022-11-29 16:16 Normal [facility] TYPE AND SCREENon 10-23-2022 TYPE AND SCREEN Negative Normal [facility] Comment on above: Performed By: #### T NS #### [facility] [address] [place] [address] Dr. Maxx Downey GLUCOSE - 1HRon 10-17-2022 Glucose [Mass/Vol] 98 mg/dL Normal 74-106 [facility] Comment on above: Performed By: #### G LU1HR #### [facility] [address] [address] [address] Maxx oDwney HEMOGRAM AND PLATELon 2021 Hematocrit (Bld) [Volume fraction] 34.7 % Critically low 36.0-48.0 [facility] Comment on above: Performed By: #### H H #### [facility] [address] [place] [address] Dr. Maxx Downey Hemoglobin (Bld) [Mass/Vol] 11.4 g/dL Critically low 12.0-16.0 [facility] Comment on above: Performed By: #### H H #### [facility] [address] [place] [address] Dr. Maxx Downey MCH (RBC) [Entitic mass] 28.9 pg Normal 26.7-34.0 [facility] Comment on above: Performed By: #### H H #### [facility] [address] [place] [address] Dr. Maxx Downey MCHC (RBC) [Mass/Vol] 32.9 g/dL Normal 29.9-35.2 [facility] Comment on above: Performed By: #### H H #### [facility] [address] [place] [address] Dr. Maxx Downey MCV (RBC) [Entitic vol] 88.1 fL Normal 81.0-99.0 [facility] Comment on above: Performed By: #### H H #### [facility] [address] [place] [address] Dr. Maxx Downey PLT 258 103/ul Normal 150-450 [facility] Comment on above: Performed By: #### H H #### [facility] [address] [place] [address] Dr. Maxx Downey RBC 3.94 106/ul Critically low 4.20-5.40 [facility] Comment on above: Performed By: #### H H #### [facility] [address] [place] [address] Dr. Maxx Downey WBC 11.9 103/ul Critically high 4.0-11.0 [facility] Comment on above: Performed By: #### H H #### [facility] [address] [place] [address] Dr. Maxx Downey HEP B SURFACE ANTIGEN SCREEN on 10-09-2022 HBsAg Screen Negative Normal Negative [facility] Comment on above: Performed By: #### H H #### [facility] [address] [place] [address] Dr. Maxx Downey HEPATITIS C VIRUS AB W/ REFL EX QUANTon 10-09-2022 HCV AB <0.1 Normal 0.0-0.9 [facility] Comment on above: Performed By: #### H H #### [facility] [address] [place] [address] Dr. Maxx Downey Interpretation: Comment Normal [facility] Comment on above: Result Comment: Nega tive Not infected with HCV, unless recent infection is suspected or other evidence exists to indicate HCV infection. Performed By: #### H H #### [facility] [address] [address] [address] Maxx Downey HIV 1 AND 2 WITH REFLEXon HIV Screen 4th Generation wRfx Non-Reactive Normal Non Reactive [facility] Comment on above: Result Comment: HIV Negative HIV-1/HIV-2 antibodies and HIV-1 p24 antigen were NOT detected. There is no laboratory evidence of HIV infection. Performed By: #### H H #### [facility] [address] [place] [address] Dr. Maxx Downey RPR QUANTon 10-09-2022 Rapid Plasma Reagin, Quant Non-Reactive Normal NonRea<1:1 [facility] Comment on above: Result Comment: Charleen rowe Note: This test does not meet current guidelines for screening and diagnosis of syphilis. This test is intended for following treatment response in patients being treated for syphilis infection. To screen for syphilis infection, a reflex cascade that includes both RPR and a treponema-specific assay should be utilized, such as Treponema pallidum (Syphilis) Screening [place] (189457) or Rapid Plasma Reagin (RPR) Test With Reflex to Quantitative RPR and Confirmatory Treponema pallidum Antibodies (222458). Performed By: #### D RUGRPD #### [facility] [address] [place] [address] Dr. Maxx Downey RUBELLA AB IGGon 10-09-2022 Rubella Antibodies, IgG 1.52 index Normal Immune >0.99 [facility] Comment on above: Result Comment: Non- immune <0.90 Equivocal 0.90 - 0.99 Immune >0.99 Performed By: #### H H #### [facility] [address] [address] [address] Maxx Downey CBC AUTO DIFFon 10-08-2022 BASO # 0.1 103/ul Normal 0.0-0.1 [facility] Comment on above: Performed By: #### D RUGRPD #### [facility] [address] [address] [address] Maxx Downey Basophils/100 WBC (Bld) 0.5 % Normal 0.2-2.0 [facility] Comment on above: Performed By: #### D RUGRPD #### [facility] [address] [address] [address] Maxx Downey EO # 0.2 103/ul Normal 0.0-0.7 [facility] Comment on above: Performed By: #### D RUGRPD #### [facility] [address] [place] [address] Dr. Maxx Downey Eosinophils/100 WBC (Bld) 1.5 % Normal 0.9-7.0 [facility] Comment on above: Performed By: #### D RUGRPD #### [facility] [address] [address] [address] Maxx Downey Erythrocyte distribution width (RBC) [Ratio] 12.7 % Normal 11.0-15.0 [facility] Comment on above: Performed By: #### D RUGRPD #### [facility] [address] [place] [address] Dr. Maxx Downey Hematocrit (Bld) [Volume fraction] 34.8 % Critically low 36.0-48.0 [facility] Comment on above: Performed By: #### D RUGRPD #### [facility] [address] [place] [address] Dr. Maxx Downey Hemoglobin (Bld) [Mass/Vol] 11.6 g/dL Critically low 12.0-16.0 [facility] Comment on above: Performed By: #### D RUGRPD #### [facility] [address] [place] [address] Dr. Maxx Downey IG # 0.07 10e3/ul Critically high 0.00-0.03 [facility] Comment on above: Performed By: #### D RUGRPD #### [facility] [address] [address] [address] Maxx Downey IG % 0.6 % Critically high 0.0-0.5 [facility] Comment on above: Performed By: #### D RUGRPD #### [facility] [address] [address] [address] Maxx Downey LYMPH # 2.0 103/ul Normal 1.2-3.8 [facility] Comment on above: Performed By: #### D RUGRPD #### [facility] [address] [address] [address] Maxx Downey Lymphocytes/100 WBC (Bld) 15.7 % Critically low 20.5-60.0 [facility] Comment on above: Performed By: #### D RUGRPD #### [facility] [address] [address] [address] Maxx Downey MANUAL DIFF REQ NO Normal [facility] Comment on above: Performed By: #### D RUGRPD #### [facility] [address] [address] [address] Maxx Downey MCH (RBC) [Entitic mass] 29.4 pg Normal 26.7-34.0 [facility] Comment on above: Performed By: #### D RUGRPD #### [facility] [address] [address] [address] Maxx Downey MCHC (RBC) [Mass/Vol] 33.3 g/dL Normal 29.9-35.2 [facility] Comment on above: Performed By: #### D RUGRPD #### [facility] [address] [address] [address] Maxx Downey MCV (RBC) [Entitic vol] 88.3 fL Normal 81.0-99.0 [facility] Comment on above: Performed By: #### D RUGRPD #### [facility] [address] [address] [address] Maxx Downey MONO # 0.7 103/ul Normal 0.3-0.8 [facility] Comment on above: Performed By: #### D RUGRPD #### [facility] [address] [address] [address] Maxx Downey Monocytes/100 WBC (Bld) 5.6 % Normal 1.7-12.0 [facility] Comment on above: Performed By: #### D RUGRPD #### [facility] [address] [address] [address] Maxx Downey NEUT # 9.4 103/ul Critically high 1.4-6.5 [facility] Comment on above: Performed By: #### D RUGRPD #### [facility] [address] [place] [address] Dr. Maxx Downey Neutrophils/100 WBC (Bld) 76.1 % Critically high 43.0-75.0 [facility] Comment on above: Performed By: #### D RUGRPD #### [facility] [address] [place] [address] Dr. Maxx Downey Platelet mean volume (Bld) [Entitic vol] 9.7 fL Normal 9.5-13.5 [facility] Comment on above: Performed By: #### D RUGRPD #### [facility] [address] [place] [address] Dr. Maxx Downey PLT 263 103/ul Normal 150-450 [facility] Comment on above: Performed By: #### D RUGRPD #### [facility] [address] [place] [address] Dr. Maxx Downey RBC 3.94 106/ul Critically low 4.20-5.40 [facility] Comment on above: Performed By: #### D RUGRPD #### [facility] [address] [place] [address] Dr. Maxx Downey WBC 12.4 103/ul Critically high 4.0-11.0 [facility] Comment on above: Performed By: #### D RUGRPD #### [facility] [address] [place] [address] Dr. Maxx Downey CULTURE URINEon 11-07-2022 CULTURE URINE Culture Observations: LIGHT GROWTH OF MIXED GENITAL CHANELLE. NO POTENTIAL PATHOGENS SEEN. Normal [facility] Comment on above: Performed By: #### H H #### [facility] [address] [address] [address] Maxx Downey GLYCOHEMOGLOBIN A1Con 2021 ADA RECOMMENDATION SEE BELOW Normal [facility] Comment on above: Result Comment: ADA RECOMMENDED LIMIT 4.0 - 6.0 ADA THERAPEUTIC TARGET < 7.0 ACTION SUGGESTED > 7.0 Performed By: #### A 1C #### [facility] [address] [address] [address] Maxx Downey Glucose [Mass/Vol] 105 mg/dL Normal [facility] Comment on above: Performed By: #### A 1C #### [facility] [address] [place] [address] Dr. Maxx Downey HbA1c (Bld) [Mass fraction] 5.3 % Normal 4.5-6.2 [facility] Comment on above: Performed By: #### A 1C #### [facility] [address] [place] [address] Dr. Maxx Downey TYPE AND SCREENon 10-08-2022 TYPE AND SCREEN Negative Normal [facility] Comment on above: Performed By: #### H H #### [facility] [address] [place] [address] Dr. Maxx Downey US PREG ANATOMY SINGLEon [...] by: JUSTIN HERNANDEZ Date: 2022-08-22 17:16 Normal [facility] ED Note-Physicianon 08-07-20 ED Note-Physician [id number] A1#[id number]:127 Normal [facility] Lyme, Total Ab with Reflexon 08-04-2022 Lyme Total Antibody Negative Normal Negative [facility] Comment on above: Result Comment: Lyme Antibody Negative No laboratory evidence of infection with B. burgdorferi (Lyme disease). Negative results may occur in patients recently infected (less than or equal to 14 days) with B. burgdorferi. If recent infection is suspected, repeat testing on a new sample collected in 7 to 14 days is recommended. Performed at: [facility] [address] [id number] Process Controls Technician: Juan Miguel Bennett PhD, Phone: [phone] PERFORMED BY: [address] [address] PATHOLOGIST WARES SORTER BRIAN RIVAS M.D. Performed By: #### L [...] Treatment: none History of Present Illness TEVIN PRESLEY is a 21 Years Female who presents [...] 2 to 4 weeks, only if needed [address] [place] [address] Additional Instructions: Patient Education Breast Tenderness Sinusitis, Adult Problem List/Past Medical History Ongoing Acute sinusitis with symptoms greater than 10 days BMI 21.0-21.9, adult Breast tenderness COVID-19 virus infection Cystitis Nonsmoker Sore throat Historical seasonal allergies Procedure/Surgical History arm surgery. Medications amoxicillin-clavula harper 875 mg-125 mg oral tablet, 1 tab(s), Oral, q12hr loratadine 10 mg Tab, 10 mg= (more content not included)... Normal [facility] Comment on above: Result Comment: Elec tronically Signed By: SITA HERNÁNDEZ, KEVIN Ly\.anish\Date and Time Signed: 03/22/22 07:34 EDT Patient [...] home: Medicines ? 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 ? Do not smoke. Avoid being around [...] or swell (more content not included)... Normal [facility] Ambulatory Visit Summaryon 0 03-16-2022 Ambulatory Visit Summary RYLANTEVIN Alex :2000 Visit Date:03/16/2022 Ambulatory Visit Instructions Your Diagnosis BMI 22.0-22.9, adult Tobacco non-user Your Care Team Attending Physician - KEVIN BUCKNER CNP Primary Care Physician - Saeed MEJIA DO This Is Your Medications List albuterol (Ventolin HFA 90 mcg/inh Aerosol) ethinyl estradiol-norgestim ate (Sprintec oral tablet) loratadine (loratadine 10 mg Tab) Procedures Performed arm surgery. Discharge Vitals Heart Rate (Peripheral) 110 Blood Pressure 112/74 Height 180.0 cm Height 180 cm Weight 73.1 kg Weight 73.1 kg BMI 22.56 Medications What How Much When Why Instructions Unchanged albuterol (Ventolin HFA 90 mcg/ inh Aerosol) 2 Puffs Inhalation Every 6 hours as needed for for wheezing Unchanged ethinyl estradiol-norgestim ate (Sprintec oral tablet) 1 Tablets By Mouth [...] longer receiving treatment for. seasonal allergies Normal [facility] Family Medicine Video Visit - Telehealthon [...] Ordered: TELEHEALTH Office Visit Level 2 Est 84361 Orders: albuterol, 2 puff(s), Inhalation, q6hr for wheezing, 1 EA, Refill(s) 1, [facility] #[id number], 180, cm, 07/26/21 12:56:00 EDT, Height/Length [...] No., 12/14/2020 Family History Fibromyalgia: Mother. Normal [facility] Comment on above: Result Comment: Elec tronically Signed By: Saeed MEJIA DO\.br\Date and Time Signed: 11/28/21 15:55 EST Vital Signs Date Time Vital Sign Value Performing Clinician Faci lity 08-04-2022 17:10-0400 Body height 180.34 cm DO Saeed Mejia Work Phone: [facility] 08-04-2022 17:10-0400 Body temperature 99.7 [degF] DO Saeed Mejia Work Phone: [facility] 08-04-2022 17:10-0400 Body weight 74 kg DO Saeed Mejia Work Phone: [facility] 08-04-2022 17:10-0400 Diastolic blood pressure 67 mm[Hg] DO Saeed Mejia Work Phone: [facility] 08-04-2022 17:10-0400 Heart rate 104 /min DO Saeed Mejia Work Phone: [facility] 08-04-2022 17:10-0400 Respiratory rate 18 /min DO Saeed Mejia Work Phone: [facility] 08-04-2022 17:10-0400 SaO2% (BldA) [Mass fraction] 97 % DO Saeed Mejia Work Phone: [facility] 08-04-2022 17:10-0400 Systolic blood pressure 122 mm[Hg] DO Saeed Mejia Work Phone: [facility] 03-16-2022 15:23-0400 Blood Pressure Location KEVIN SIDELL [facility] 03-16-2022 15:23-0400 Diastolic blood pressure 74 mm[Hg] KEVIN SIDELL [facility] 03-16-2022 15:23-0400 Heart rate 110 /min KEVIN SIDELL [facility] 03-16-2022 15:23-0400 SaO2% (BldA) [Mass fraction] 98 % KEVIN SIDELL [facility] 03-16-2022 15:23-0400 Systolic blood pressure 112 mm[Hg] KEVIN SIDELL [facility] Encounters Encounter Date Encounter Type Care Provider Facility Start: 08-31-2024 End: 09-01-2024 Clinisync Result Encounter Sarah TREVIZO Work Phone: [facility] Unsolicited Start: 08-31-2024 End: 09-01-2024 Clinisync Result Encounter Sarah TREVIZO Work Phone: [facility] Unsolicited Start: 07-27-2024 End: 07-27-2024 ambulatory VANESSA THOM Not Available Start: 06-29-2024 End: 06-29-2024 ambulatory SARAH RAMOS Not Available Start: 06-08-2024 End: 06-08-2024 ambulatory VANESSA THOM Not Available Start: 05-11-2024 End: 05-11-2024 ambulatory VANESSA THOM Not Available Start: 04-10-2024 End: 04-10-2024 ambulatory SARAH RAMOS Not Available Start: 12-26-2023 End: 12-26-2023 ambulatory SARAH RAMOS Not Available Start: 01-03-2023 End: 01-03-2023 [...] 08-04-2022 Emergency department patient visit Saeed Mejia Facility:[facility] Start: 08-04-2022 End: 08-04-2022 Emergency department patient visit DO Saeed Mejia Work Phone: [facility] Start: 03-16-2022 End: 03-16-2022 Patient encounter procedure KEVIN BUCKNER [facility] [place] Procedures Date Procedure Procedure Detail Performing Clinician Start: 08-31-2024 ALL MISCELLANEOUS TEST Sarah TREVIZO Work Phone: Start: 12-31-2022 Delivery of Products of Conception, External Approach JOSELINE RAMOS Start: 12-31-2022 Division of Female Perineum, External Approach JOSELINE RAMOS Start: 12-31-2022 Repair Perineum Musc le, Open Approach JOSELINE RAMOS arm surgery KEVIN BUCKNER Plan of Treatment Date Care Activity Detail Author Start: 09-08-2024 End: 09-08-2024 Patient encounter procedure 09/08/2024 9:30 AM EDT Routine [facility] [address] [place] [address] Sarah Ramos PA [address] [place] [address] [facility] Start: 09-08-2024 End: 09-08-2024 Professional / ancillary services management 09/08/2024 9:00 AM EDT Ancillary Procedure [facility] [address] [place] [address] [facility] Start: 08-04-2022 Borrelia burgdorferi DNA assay [facility] Work Phone: Borrelia burgdorferi Ab [Interpretation] in Serum [facility] Work Phone: Borrelia burgdorferi IgG Ab [Presence] in Serum or Plasma by Immunoassay [facility] Work Phone: Borrelia burgdorferi IgG+IgM Ab [Presence] in Serum by Immunoassay [facility] Work Phone: Borrelia burgdorferi IgM Ab [Presence] in Serum or Plasma by Immunoassay [facility] Work Phone: Patient Education Skin Rash ED [facility] Work Phone: Patient referral [facility] Work Phone: Payers Date Payer Category Payer Unknown BCBS BCBS [id number] 2023-Present [phone] [address] [place] [address] [id number] 2023 Unknown [id number] 2022 Self-pay [id number] 2000 Unknown [id number] .593 1998 Unknown [id number] 2.16.840.1.790378.3.579.2 .593 1998 Unknown [id number] 2.16.840.1.873642.3.579.2 .593 1998 Unknown [id number] 2.16.840.1.429923.3.579.2 .593 1998 Unknown [id number] 2.16.840.1.573874.3.579.2 .593 1998 Unknown [id number] 2.16.840.1.659451.3.579.2 .593 1998 Unknown [id number] 2.16.840.1.788747.3.579.2 .593 1998 Unknown [id number] 2.16.840.1.405003.3.579.2 .593 1998 Unknown [id number] 2.16.840.1.647792.3.579.2 .593 1998 Unknown [id number] 2.16.840.1.207218.3.579.2 .593 1998 Unknown [id number] 2.16.840.1.044007.3.579.2 .1259 1998 Unknown [id number] 2.16.840.1.352618.3.579.2 .1259 1998 Unknown [id number] 2.16.840.1.819495.3.579.2 .1259 1998 Unknown [id number] 2.16.840.1.268692.3.579.2 .1259 1998 Unknown [id number] 2.16.840.1.659196.3.579.2 .1259 1998 Unknown [id number] 2.16.840.1.464510.3.579.2 .1259 1961 Private Health Insurance [id number] Unknown [id number] [id number] .531 Social History Date Type Detail Facility Start: 03-16-2022 End: 05-11-2024 Tobacco smoking status Never smoked tobacco (finding) [facility] Tobacco smoking status Never [facility] Start: 05-11-2024 Sex Assigned At Female F [facility] Start: 2000 Sex Assigned At Female F [facility] Start: 05-11-2024 Tobacco use and exposure Smokeless tobacco non-user [facility] Start: 08-27-2024 Alcoholic beverage intake Ex-drinker (finding) [facility] Start: 05-11-2024 History of Social function [facility] Start: 02-21-2024 [facility] Evaluation + Plan note Note Date & Type Note Facility Evaluation + Plan note No data available for this section [facility] Evaluation note Note Date & Type Note Facility Evaluation note No assessment information availa [facility] Work Phone: Hospital Discharge instructions Note Date & Type Note Facility Hospital Discharge instructions No data available for this section [facility] Chief Complaint and Reason for Visit Chief Complaint 17 wks preg body bhupendra h Advance Directives Advance Directive Response Recorded Date/ Time Advance [...] content) DATE CREATED AUTHOR 08/07/2022 Cezar Abbott [facility] DATE CREATED AUTHOR AUTHOR'S ORGANIZ ATION 09/01/2022 [facility] DATE CREATED AUTHOR AUTHOR'S ORGANIZ ATION 01/16/2023 [facility] DATE CREATED AUTHOR AUTHOR'S ORGANIZ ATION 07/28/2024 [facility] dictn Specialists [facility] FOR RECORDS PERTAINING TO PATIENTS WHO ARE [...] BE BASED ON THE PRIMARY CLINICAL RECORDS. [employer] provides no warranty or guarantee of the accuracy or completeness of information in this document.
== END 2024-09-08 09:12 | disposition home or self-care (01) ==
LOC: NOMS 09:11
PROVIDERS: PCP Family Medicine; Visit Provider Obstetrics & Gynecology
DX: Z34.93 Encounter for supervision of normal pregnancy, unspecified, third trimester (principal); Z3A.30 30 weeks gestation of pregnancy
CPT/HCPCS: 76816

== ENCOUNTER 2024-10-19 21:17 | Outpatient (REF) | payer BC, SELFPAY ==
--- OUTSIDE RECORDS SUMMARY | 2024-10-19 21:20 | XMS_ITS | CCD ---
Author Organization [facility] Care Team Providers Care Slitting Machine Feeder Name Role Phone Saeed MEJIA Primary Care Physician DO Saeed Mejia Primary Care Provider ADOLFO Dean Emergency Provider Saeed Mejia Primary Care Unavailable Addy Dean Attending Unavailable Addy Dean Admitting Unavailable JOSELINE RAMOS Attending Unavailable JOSELINE RAMOS Admitting Unavailable REQUEST, NONE LISTED Primary Care Unavaila JOSELINE Lazo Consulting Unavailable GILMER, DR MENDEZ Consulting Unavailable GILMER, DR MENDEZ Attending Unavailable REQUEST, DR POWELL LISTED Primary Care Unavaila ble GILMER, DR MENDEZ Admitting Unavailable ZIEBER, DR JUSTIN Mazariegos Consulting Unavailable KARASIK, DR KAYE Attending Unavailable KARASIK, DR KAYE Admitting Unavailable REQUEST, DR POWELL LISTED Primary Care Unavaila ble KARASIK, DR KAYE Consulting Unavailable GILMER, DR MENDEZ Consulting Unavailable GIOVANY DIETZ Consulting Unavailable GILMER, DR MENDEZ Procedure Practitioner Unavailab le GILMER, DR MENDEZ Consulting Unavailable KARASIK, DR KAYE Attending Unavailable KARASIK, DR KAYE Admitting Unavailable REQUEST, DR POWELL LISTED Primary Care Unavaila ble GILMER, DR MENDEZ Attending Unavailable REQUEST, DR POWELL LISTED Primary Care Unavaila ble GILMER, DR MENDEZ Admitting Unavailable ROBERTO, DR SAEED Rosenthal Primary Care Unavailable GILMER, DR MENDEZ Attending Unavailable GILMER, DR MENDEZ Admitting Unavailable GILMER, DR MENDEZ Consulting Unavailable GILMER, DR MENDEZ Consulting Unavailable GILMER, DR MENDEZ Attending Unavailable GILMER, DR MENDEZ Admitting Unavailable ZIEBER, DR JUSTIN Mazariegos Consulting Unavailable GILMER, DR MENDEZ Consulting Unavailable GILMER, DR MENDEZ Admitting Unavailable GILMER, DR MENDEZ Attending Unavailable ROBERTO, DR SAEED Rosenthal Primary Care Unavailable ROBERTO, DR SAEED Rosenthal Primary Care Unavailable GILMER, DR MENDEZ Attending Unavailable GILMER, DR MENDEZ Admitting Unavailable GILMER, DR MENDEZ Consulting Unavailable GILMER, DR MENDEZ Attending Unavailable REQUEST, DR POWELL LISTED Primary Care Unavaila ble GILMER, DR MENDEZ Admitting Unavailable [place], DR ESCOBAR Chatman Consulting Unavailable GILMER, DR MENDEZ Consulting Unavailable Unavailable Primary Care Provider Unavailabl e RICHARD, SARAH Attending Unavailable GILMER, VANESSA Attending Unavailable GILMER, VANESSA Attending Unavailable RICHARD, SARAH Attending Unavailable GILMER, VANESSA Attending Unavailable RICHARD, SARAH Attending Unavailable RICHADR, SARAH Attending Unavailable GILMER, VANESSA Attending Unavailable RICHARD, SARAH Attending Unavailable Medications Current Medications Medication Drug Class(es) Dates Sig (Normalized) Sig (Original) amoxicillin 875 mg / clavulanate 125 mg oral tablet (1 source) Penicillin-class Antibacterial Start: 03-16-2022 End: 03-23-2022 take 1 tablet by mouth every twelve hours amoxicillin-clavul anate 875 mg-125 mg oral tablet = 1 tab(s), Oral, q12hr, X 7 day(s), # 14 tab(s), Refills(s) 0, [id number], cm, 03/16/22 15:28:00 EDT, Height/Length Dosing, 73.1, kg, 03/16/22 15:28:00 EDT, Weight Dosing Start Date: 03/16/22 Stop Date: 03/23/22 Status: Ordered loratadine 10 mg oral tablet (1 source) Start: 07-18-2020 take 1 tablet by mouth once daily loratadine 10 mg Tab 10 mg = 1 tab(s), Oral, Daily, # 15 tab(s), Refills(s) 1, Pharmacy: [id number], 180, cm, 07/18/20 9:00:00 EDT, [...] Nausea/Vomiting, # 12 tab(s), Refills(s) 0, Pharmacy: [facility]/pharmacy #[id number], 180, cm, 03/16/22 15:28:00 EDT, Height/Length Dosing, 73.1, kg, 03/16/22 15:28:00 EDT, Weight Dosing Start Date: 03/16/22 Status: Ordered Pnv Cmb#95-Ferrous Fumarate-Fa () 28 mg iron- 800 mcg Tablet (1 source) Start: 08-04-2022 take 1 tablet by mouth once daily Pnv Cmb#95-Ferrous Fumarate-Fa () 28 mg iron- 800 mcg Tablet Active 1 TAB PO Daily August 04, 2022 12:00am Dqmpjwrr-Xfz-Ds-FA (, w/Iron & FA,) 27-0.8 MG tablet (11 sources) Kmhgjvog-Luo-Wk-FA (, w/Iron & FA,) 27-0.8 MG tablet 1 (one) time each day at the same time Active Sprintec oral tablet (1 source) Start: 01-16-2022 take 1 tablet by mouth once daily Sprintec oral tablet 1 tab(s), Oral, Daily, 28 tab(s), Refill(s) 5, [id number], 180, cm, 07/26/21 12:56:00 EDT, [...] 10-31-2022 Episodic Other and delivery including normal (17 sources) Encounter for routine follow-up; Translations: [Encounter [...] BLOOD TYPE RH NEGATIVE] Onset: 10-30-2022 Episodic Residual codes; unclassified (2 sources) Gestation period, 30 weeks; Translations: [30 weeks gestation of ] 09-08-2024 Episodic Residual codes; unclassified (2 sources) Gestation period, 32 weeks; Translations: [32 weeks gestation of ] 09-22-2024 Episodic Residual codes; unclassified (2 sources) Gestation period, 34 weeks; Translations: [34 weeks gestation of ] 10-06-2024 Episodic Unclassified (1 source) Body mass index [...] [CONTCT W EXPOS INFECT SEXUAL TRNSMS] Onset: 11-12-2022 Episodic Results Test Name Value Interpretation Reference Range Facility Urinalysis macro (dipstick) panel (U)on 10-06-2024 Bilirubin, UA Negative Negative - 4(70) +++ mg/dL [facility] Blood, UA Negative Negative - 50 Roman/mcL [facility] Healthcare Clarity, UA Clear [facility] re Color, UA Yellow [facility] Glucose, UA Negative Negative - 1999(110) ++++ mg/dL [facility] Interpretation and review of laboratory results Normal [facility] Ketones, UA Negative Negative - 160(16) ++++ mg/dL [facility] Leukocytes, UA Negative Negative - 500+++ Ludin/mcL [facility] Nitrite, UA Negative Negative - Positive [facility] pH, UA 7 5 - 9 [facility] Protein, UA Negative Negative - 1999(20) ++++ mg/dL [facility] Spec Grav, UA 1.01 1 - 1.03 [facility] Urobilinogen, UA 1.0 0.2 - 12 mg/dL [facility] Urinalysis macro (dipstick) panel (U)on 09-22-2024 Bilirubin, UA Negative Negative - 4(70) +++ mg/dL [facility] Blood, UA Negative Negative - 50 Roman/mcL [facility] Clarity, UA Clear [facility] re Color, UA Yellow [facility] Glucose, UA Negative Negative - 1999(110) ++++ mg/dL [facility] Interpretation and review of laboratory results Normal [facility] Ketones, UA Negative Negative - 160(16) ++++ mg/dL [facility] Leukocytes, UA Negative Negative - 500+++ Ludin/mcL [facility] Nitrite, UA Negative Negative - Positive [facility] pH, UA 6 5 - 9 [facility] Protein, UA Negative Negative - 1999(20) ++++ mg/dL [facility] Spec Grav, UA 1.02 1 - 1.03 [facility] Urobilinogen, UA 1.0 0.2 - 12 mg/dL [facility] Urinalysis macro (dipstick) panel (U)on 09-08-2024 Bilirubin, UA Positive Negative - 4(70) +++ mg/dL [facility] Comment on above: small Blood, UA Negative Negative - 50 Roman/mcL [facility] Clarity, UA Clear [facility] re Color, UA Roxy [facility] e Glucose, UA Negative Negative - 1999(110) ++++ mg/dL [facility] Interpretation and review of laboratory results Abnormal [facility] Ketones, UA Positive Negative - 160(16) ++++ mg/dL [facility] Comment on above: trace Leukocytes, UA Trace Negative - 500+++ Ludin/mcL [facility] Nitrite, UA Negative Negative - Positive [facility] pH, UA 7.0 5 - 9 [facility] e Protein, UA Positive Negative - 1999(20) ++++ mg/dL [facility] Comment on above: 30 Spec Grav, UA 1.025 1 - 1.03 [facility] Urobilinogen, UA 1.0 0.2 - 12 mg/dL [facility] ALL MISCELLANEOUS TESTon MISCELLANEOUS TEST COMMENT . [facility] Comment on above: Test Ordered: [id number] Antibody Identification Antibody Id. #1 Comment Reference Range: . An antibody identification panel was non-reactive. There was no evidence of the presence of atypical red cell antibody. Jose Titer #1 [employer] [facility] Reference Range: . Antibody Id. #2 [employer] [place] Reference Range: . Jose Titer #2 [employer] [place] Reference Range: . Performed at: [facility] Lab[address] [id number] Polisher And Buffer: Juan Miguel Bennett PhD, Phone: [phone] ANTIBODY IDENTIFICATION [facility] e CBC AUTO DIFFon 01-01-2023 BASO # 0.1 103/ul Normal 0.0-0.[address] [facility] Comment on above: Performed By: #### C BC #### [facility] [address] [place] [address] Dr. Maxx Downey Basophils/100 WBC (Bld) 0.4 % Normal 0.2-2.[address] [facility] Comment on above: Performed By: #### C BC #### [facility] [address] [place] [address] Dr. Maxx Downey EO # 0.1 103/ul Normal 0.0-0.[address] [facility] Comment on above: Performed By: #### C BC #### [facility] [address] [address] [address] Maxx Downey Eosinophils/100 WBC (Bld) 0.4 % Critically low 0.9-7.[address] [facility] Comment on above: Performed By: #### C BC #### [facility] [address] [address] [address] Maxx Downey Erythrocyte distribution width (RBC) [Ratio] 13.7 % Normal 11.0-15.[address] [facility] Comment on above: Performed By: #### C BC #### [facility] [address] [place] [address] Dr. Maxx Downey Hematocrit (Bld) [Volume fraction] 27.8 % Critically low 36.0-48.[address] [facility] Comment on above: Performed By: #### C BC #### [facility] [address] [place] [address] Dr. Maxx Downey Hemoglobin (Bld) [Mass/Vol] 9.0 g/dL Critically low 12.0-16.[address] [facility] Comment on above: Performed By: #### C BC #### [facility] [address] [place] [address] Dr. Maxx Downey IG # 0.11 10e3/ul Critically high 0.00-0.03 [facility] Comment on above: Performed By: #### C BC #### [facility] [address] [place] [address] Dr. Maxx Downey IG % 0.7 % Critically high 0.0-0.5 [facility] Comment on above: Performed By: #### C BC #### [facility] [address] [place] [address] Dr. Maxx Downey LYMPH # 2.9 103/ul Normal 1.2-3.[address] [facility] Comment on above: Performed By: #### C BC #### [facility] [address] [place] [address] Dr. Maxx Downey Lymphocytes/100 WBC (Bld) 18.2 % Critically low 20.5-60.[address] [facility] Comment on above: Performed By: #### C BC #### [facility] [address] [place] [address] Dr. Maxx Downey MANUAL DIFF REQ NO Normal [facility] Comment on above: Performed By: #### C BC #### [facility] [address] [place] [address] Dr. Maxx Downey MCH (RBC) [Entitic mass] 26.8 pg Normal 26.7-34.[address] [facility] Comment on above: Performed By: #### C BC #### [facility] [address] [place] [address] Dr. Maxx Downey MCHC (RBC) [Mass/Vol] 32.4 g/dL Normal 29.9-35.[address] [facility] Comment on above: Performed By: #### C BC #### [facility] [address] [place] [address] Dr. Maxx Downey MCV (RBC) [Entitic vol] 82.7 fL Normal 81.0-99.[address] [facility] Comment on above: Performed By: #### C BC #### [facility] [address] [place] [address] Dr. Maxx Downey MONO # 1.2 103/ul Critically high 0.3-0.8 [facility] Comment on above: Performed By: #### C BC #### [facility] [address] [place] [address] Dr. Maxx Downey Monocytes/100 WBC (Bld) 7.6 % Normal 1.7-12.0 [facility] Comment on above: Performed By: #### C BC #### [facility] [address] [place] [address] Dr. Maxx Downey NEUT # 11.6 103/ul Critically high 1.4-6.5 [facility] Comment on above: Performed By: #### C BC #### [facility] [address] [place] [address] Dr. Maxx Downey Neutrophils/100 WBC (Bld) 72.7 % Normal 43.0-75.[address] [facility] Comment on above: Performed By: #### C BC #### [facility] [address] [place] [address] Dr. Maxx Downey Platelet mean volume (Bld) [Entitic vol] 9.8 fL Normal 9.5-13.[address] [facility] Comment on above: Performed By: #### C BC #### [facility] [address] [place] [address] Dr. Maxx Downey PLT 270 103/ul Normal 150-450 [facility] Comment on above: Performed By: #### C BC #### [facility] [address] [place] [address] Dr. Maxx Downey RBC 3.36 106/ul Critically low 4.20-5.40 [facility] Comment on above: Performed By: #### C BC #### [facility] [address] [place] [address] Dr. Maxx Downey WBC 15.9 103/ul Critically high 4.0-11.0 [facility] Comment on above: Performed By: #### C BC #### [facility] [address] [place] [address] Dr. Maxx Downey SCREENon 01-01-2023 SCREEN Negative Normal [facility] Comment on above: Performed By: #### F ETSCRN #### [facility] [address] [place] [address] Dr. Maxx Downey AMNISUREon 12-31-2022 AMNISURE Positive Abnormal NEGATIVE [facility] Comment on above: Performed By: #### D RUGRPD #### [facility] [address] [place] [address] Dr. Maxx Downey CBC AUTO DIFFon 12-31-2022 BASO # 0.1 103/ul Normal 0.0-0.[address] [facility] Comment on above: Performed By: #### C BC #### [facility] [address] [place] [address] Dr. Maxx Downey Basophils/100 WBC (Bld) 0.4 % Normal 0.2-2.[address] [facility] Comment on above: Performed By: #### C BC #### [facility] [address] [address] [address] Maxx Downey EO # 0.1 103/ul Normal 0.0-0.7 [facility] Comment on above: Performed By: #### C BC #### [facility] [address] [address] [address] Maxx Downey Eosinophils/100 WBC (Bld) 0.7 % Critically low 0.9-7.[address] [facility] Comment on above: Performed By: #### C BC #### [facility] [address] [place] [address] Dr. Maxx Downey Erythrocyte distribution width (RBC) [Ratio] 13.7 % Normal 11.0-15.[address] [facility] Comment on above: Performed By: #### C BC #### [facility] [address] [place] [address] Dr. Maxx Downey Hematocrit (Bld) [Volume fraction] 31.1 % Critically low 36.0-48.[address] [facility] Comment on above: Performed By: #### C BC #### [facility] [address] [place] [address] Dr. Maxx Downey Hemoglobin (Bld) [Mass/Vol] 10.3 g/dL Critically low 12.0-16.[address] [facility] Comment on above: Performed By: #### C BC #### [facility] [address] [place] [address] Dr. Maxx Downey IG # 0.08 10e3/ul Critically high 0.00-0.03 [facility] Comment on above: Performed By: #### C BC #### [facility] [address] [place] [address] Dr. Maxx Downey IG % 0.7 % Critically high 0.0-0.5 [facility] Comment on above: Performed By: #### C BC #### [facility] [address] [place] [address] Dr. Maxx Downey LYMPH # 2.8 103/ul Normal 1.2-3.8 [facility] Comment on above: Performed By: #### C BC #### [facility] [address] [address] [address] Maxx Downey Lymphocytes/100 WBC (Bld) 22.7 % Normal 20.5-60.0 [facility] Comment on above: Performed By: #### C BC #### [facility] [address] [address] [address] Maxx Downey MANUAL DIFF REQ NO Normal [facility] Comment on above: Performed By: #### C BC #### [facility] [address] [address] [address] Maxx Downey MCH (RBC) [Entitic mass] 26.4 pg Critically low 26.7-34.0 [facility] Comment on above: Performed By: #### C BC #### [facility] [address] [place] [address] Dr. Maxx Downey MCHC (RBC) [Mass/Vol] 33.1 g/dL Normal 29.9-35.2 [facility] Comment on above: Performed By: #### C BC #### [facility] [address] [place] [address] Dr. Maxx Downey MCV (RBC) [Entitic vol] 79.7 fL Critically low 81.0-99.0 [facility] Comment on above: Performed By: #### C BC #### [facility] [address] [place] [address] Dr. Maxx Downey MONO # 0.8 103/ul Normal 0.3-0.8 [facility] Comment on above: Performed By: #### C BC #### [facility] [address] [place] [address] Dr. Maxx Downey Monocytes/100 WBC (Bld) 6.5 % Normal 1.7-12.0 [facility] Comment on above: Performed By: #### C BC #### [facility] [address] [place] [address] Dr. Maxx Downey NEUT # 8.4 103/ul Critically high 1.4-6.5 [facility] Comment on above: Performed By: #### C BC #### [facility] [address] [address] [address] Maxx Downey Neutrophils/100 WBC (Bld) 69.0 % Normal 43.0-75.[address] [facility] Comment on above: Performed By: #### C BC #### [facility] [address] [place] [address] Dr. Maxx Downey Platelet mean volume (Bld) [Entitic vol] 9.4 fL Critically low 9.5-13.[address] [facility] Comment on above: Performed By: #### C BC #### [facility] [address] [place] [address] Dr. Maxx Downey PLT 296 103/ul Normal 150-[address] [facility] Comment on above: Performed By: #### C BC #### [facility] [address] [place] [address] Dr. Maxx Downey RBC 3.90 106/ul Critically low 4.20-5.40 [facility] Comment on above: Performed By: #### C BC #### [facility] [address] [place] [address] Dr. Maxx Downey WBC 12.1 103/ul Critically high 4.0-11.0 [facility] Comment on above: Performed By: #### C BC #### [facility] [address] [place] [address] Dr. Maxx Downey DRUG SCREEN RAPID (URINE)on 12-31-2022 AMP Negative Normal NEGATIVE [facility] Comment on above: Performed By: #### D RUGRPD #### [facility] [address] [place] [address] Dr. Maxx Downey BAR Negative Normal NEGATIVE [facility] Comment on above: Performed By: #### D RUGRPD #### [facility] [address] [place] [address] Dr. Maxx Downey BUP Negative Normal NEGATIVE [facility] Comment on above: Performed By: #### D RUGRPD #### [facility] [address] [place] [address] Dr. Maxx Downey BZO Negative Normal NEGATIVE [facility] Comment on above: Performed By: #### D RUGRPD #### [facility] [address] [place] [address] Dr. Maxx Downey BRENDA Negative Normal NEGATIVE [facility] Comment on above: Performed By: #### D RUGRPD #### [facility] [address] [place] [address] Dr. Maxx Downey CUT-OFFS SEE BELOW Normal [facility] Comment on above: Result Comment: AMP [...] ng/mL Performed By: #### D RUGRPD #### [facility] [address] [place] [address] Dr. Maxx Downey DRUG CUT HEADER DRUG CLASS TEST SYSTEM CUT-OFF CONCENTRATIONS ARE FOLLOWS: Normal [facility] Comment on above: Performed By: #### D RUGRPD #### [facility] [address] [place] [address] Dr. aMxx Downey mAMP Negative Normal NEGATIVE [facility] Comment on above: Performed By: #### D RUGRPD #### [facility] [address] [place] [address] Dr. Maxx Downey MTD Negative Normal NEGATIVE [facility] Comment on above: Performed By: #### D RUGRPD #### [facility] [address] [place] [address] Dr. Maxx Downey OPI Negative Normal NEGATIVE [facility] Comment on above: Performed By: #### D RUGRPD #### [facility] [address] [place] [address] Dr. Maxx Downey OXY Negative Normal NEGATIVE [facility] Comment on above: Performed By: #### D RUGRPD #### [facility] [address] [address] [address] Maxx Downey PCP Negative Normal NEGATIVE [facility] Comment on above: Performed By: #### D RUGRPD #### [facility] [address] [place] [address] Dr. Maxx Downey PPX Negative Normal NEGATIVE [facility] Comment on above: Performed By: #### D RUGRPD #### [facility] [address] [place] [address] Dr. Maxx Downey TCA Negative Normal NEGATIVE [facility] Comment on above: Performed By: #### D RUGRPD #### [facility] [address] [place] [address] Dr. Maxx Downey THC Negative Normal NEGATIVE [facility] Comment on above: Performed By: #### D RUGRPD #### [facility] [address] [place] [address] Dr. Maxx Downey TYPE AND SCREENon 12-31-2022 TYPE AND SCREEN Negative Normal [facility] Comment on above: Performed By: #### T NS #### [facility] [address] [place] [address] Dr. Maxx Downey UA (CLEAN/CATCH) SOUND ENGINEER AUDIO CONTROL/MICRO I F IND.on 12-31-2022 Bilirubin Ql (U) Negative Normal NEGATIVE [facility] Comment on above: Performed By: #### H H #### [facility] [address] [place] [address] Dr. Maxx Downey Clarity (U) CLEAR Normal CLEAR [facility] Comment on above: Performed By: #### H H #### [facility] [address] [place] [address] Dr. Maxx Downey Color (U) LT. YELLOW Normal YELLOW [facility] Comment on above: Performed By: #### H H #### [facility] [address] [place] [address] Dr. Maxx Downey Glucose Ql (U) Negative Normal NEGATIVE [facility] Comment on above: Performed By: #### H H #### [facility] [address] [place] [address] Dr. Maxx Downey Hemoglobin Ql (U) Negative Normal NEGATIVE [facility] Comment on above: Performed By: #### H H #### [facility] [address] [place] [address] Dr. Maxx Downey Ketones Ql (U) Negative Normal NEGATIVE [facility] Comment on above: Performed By: #### H H #### [facility] [address] [place] [address] Dr. Maxx Downey LEUKOCYTES Negative Normal NEGATIVE [facility] Comment on above: Performed By: #### H H #### [facility] [address] [place] [address] Dr. Maxx Downey Nitrite Ql (U) Negative Normal NEGATIVE [facility] Comment on above: Performed By: #### H H #### [facility] [address] [place] [address] Dr. Maxx Downey pH (U) 5.5 [pH] Normal 5-[address] [facility] Comment on above: Performed By: #### H H #### [facility] [address] [place] [address] Dr. Maxx Downey SPEC GRAVITY <=1.005 Abnormal 1.005-<=1.025 [facility] Comment on above: Performed By: #### H H #### [facility] [address] [place] [address] Dr. Maxx Downey UA PROTEIN Negative Normal NEGATIVE/ TRACE [facility] Comment on above: Performed By: #### H H #### [facility] [address] [place] [address] Dr. Maxx Downey UR MICRO IND NOT INDICATED Normal [facility] Comment on above: Performed By: #### H H #### [facility] [address] [place] [address] Dr. Maxx Downey Urobilinogen Qn (U) 0.2 {Dom'U}/dL Normal 0.2 - 1. [address] [facility] Comment on above: Performed By: #### H H #### [facility] [address] [place] [address] Dr. Maxx Downey PREG GROWTHon 12-27-2022 US [...] JUSTIN HERNANDEZ Date: 2022-12-27 10:02 Normal [facility] GROUP B STREP CULTUREon 12-02 S. agalactiae Ag Ql (Unsp spec) Culture Observations: NEGATIVE FOR GROUP B STREPTOCOCCUS. Normal [facility] Comment on above: Performed By: #### G BSCX #### [facility] [address] [address] [address] Maxx Downey PREG GROWTHon 11-29-2022 US [...] by: ESCOBAR PERES Date: 2022-11-29 16:[address] [facility] TYPE AND SCREENon 10-23-2022 TYPE AND SCREEN Negative Normal [facility] Comment on above: Performed By: #### T NS #### [facility] [address] [place] [address] Dr. Maxx Downey GLUCOSE - 1HRon 10-17-2022 Glucose [Mass/Vol] 98 mg/dL Normal 74-106 [facility] Comment on above: Performed By: #### G LU1HR #### [facility] [address] [place] [address] Dr. Maxx Downey HEMOGRAM AND PLATELon 2021 Hematocrit (Bld) [Volume fraction] 34.7 % Critically low 36.0-48.[address] [facility] Comment on above: Performed By: #### H H #### [facility] [address] [place] [address] Dr. Maxx Downey Hemoglobin (Bld) [Mass/Vol] 11.4 g/dL Critically low 12.0-16.[address] [facility] Comment on above: Performed By: #### H H #### [facility] [address] [place] [address] Dr. Maxx Downey MCH (RBC) [Entitic mass] 28.9 pg Normal 26.7-34.[address] [facility] Comment on above: Performed By: #### H H #### [facility] [address] [place] [address] Dr. Maxx Downey MCHC (RBC) [Mass/Vol] 32.9 g/dL Normal 29.9-35.[address] [facility] Comment on above: Performed By: #### H H #### [facility] [address] [place] [address] Dr. Maxx Downey MCV (RBC) [Entitic vol] 88.1 fL Normal 81.0-99.[address] [facility] Comment on above: Performed By: #### H H #### [facility] [address] [place] [address] Dr. Maxx Downey PLT 258 103/ul Normal 150-450 [facility] Comment on above: Performed By: #### H H #### [facility] [address] [address] [address] Maxx Downey RBC 3.94 106/ul Critically low 4.20-5.40 [facility] Comment on above: Performed By: #### H H #### [facility] [address] [address] [address] Maxx Downey WBC 11.9 103/ul Critically high 4.0-11.0 [facility] Comment on above: Performed By: #### H H #### [facility] [address] [place] [address] Dr. Maxx Downey HEP B SURFACE ANTIGEN SCREEN on 10-09-2022 HBsAg Screen Negative Normal Negative [facility] Comment on above: Performed By: #### H H #### [facility] [address] [address] [address] Maxx Downey HEPATITIS C VIRUS AB W/ REFL EX QUANTon 10-09-2022 HCV AB <0.1 Normal 0.0-0.[address] [facility] Comment on above: Performed By: #### H H #### [facility] [address] [place] [address] Dr. Maxx Downey Interpretation: Comment Normal [facility] Comment on above: Result Comment: Nega tive Not infected with HCV, unless recent infection is suspected or other evidence exists to indicate HCV infection. Performed By: #### H H #### [facility] [address] [place] [address] Dr. Maxx Downey HIV 1 AND 2 WITH REFLEXon HIV Screen 4th Generation wRfx Non-Reactive Normal Non Reactive [facility] Comment on above: Result Comment: HIV Negative HIV-1/HIV-2 antibodies and HIV-1 p24 antigen were NOT detected. There is no laboratory evidence of HIV infection. Performed By: #### H H #### [facility] [address] [place] [address] Dr. Maxx Downey RPR QUANTon 10-09-2022 Rapid Plasma Reagin, Quant Non-Reactive Normal NonRea<1:[address] [facility] Comment on above: Result Comment: Plea Note: This test does not meet current guidelines for screening and diagnosis of syphilis. This test is intended for following treatment response in patients being treated for syphilis infection. To screen for syphilis infection, a reflex cascade that includes both RPR and a treponema-specific assay should be utilized, such as Treponema pallidum (Syphilis) Screening Hickman (038204) or Rapid Plasma Reagin (RPR) Test With Reflex to Quantitative RPR and Confirmatory Treponema pallidum Antibodies (600714). Performed By: #### D RUGRPD #### [facility] [address] [place] [address] Dr. Maxx Downey RUBELLA AB IGGon 10-09-2022 Rubella Antibodies, IgG 1.52 index Normal Immune >0.[address] [facility] Comment on above: Result Comment: Non- immune <0.90 Equivocal 0.90 - 0.99 Immune >0.99 Performed By: #### H H #### [facility] [address] [place] [address] Dr. Maxx Downey CBC AUTO DIFFon 10-08-2022 BASO # 0.1 103/ul Normal 0.0-0.1 [facility] Comment on above: Performed By: #### D RUGRPD #### [facility] [address] [place] [address] Dr. Maxx Downey Basophils/100 WBC (Bld) 0.5 % Normal 0.2-2.0 [facility] Comment on above: Performed By: #### D RUGRPD #### [facility] [address] [place] [address] Dr. Maxx Downey EO # 0.2 103/ul Normal 0.0-0.7 [facility] Comment on above: Performed By: #### D RUGRPD #### [facility] [address] [address] [address] Maxx Downey Eosinophils/100 WBC (Bld) 1.5 % Normal 0.9-7.[address] [facility] Comment on above: Performed By: #### D RUGRPD #### [facility] [address] [place] [address] Dr. Maxx Downey Erythrocyte distribution width (RBC) [Ratio] 12.7 % Normal 11.0-15.[address] [facility] Comment on above: Performed By: #### D RUGRPD #### [facility] [address] [place] [address] Dr. Maxx Downey Hematocrit (Bld) [Volume fraction] 34.8 % Critically low 36.0-48.[address] [facility] Comment on above: Performed By: #### D RUGRPD #### [facility] [address] [place] [address] Dr. Maxx Downey Hemoglobin (Bld) [Mass/Vol] 11.6 g/dL Critically low 12.0-16.[address] [facility] Comment on above: Performed By: #### D RUGRPD #### [facility] [address] [place] [address] Dr. Maxx Downey IG # 0.07 10e3/ul Critically high 0.00-0.03 [facility] Comment on above: Performed By: #### D RUGRPD #### [facility] [address] [place] [address] Dr. Maxx Downey IG % 0.6 % Critically high 0.0-0.5 [facility] Comment on above: Performed By: #### D RUGRPD #### [facility] [address] [place] [address] Dr. Maxx Downey LYMPH # 2.0 103/ul Normal 1.2-3.8 [facility] Comment on above: Performed By: #### D RUGRPD #### [facility] [address] [place] [address] Dr. Maxx Downey Lymphocytes/100 WBC (Bld) 15.7 % Critically low 20.5-60.[address] [facility] Comment on above: Performed By: #### D RUGRPD #### [facility] [address] [address] [address] Maxx Downey MANUAL DIFF REQ NO Normal [facility] Comment on above: Performed By: #### D RUGRPD #### [facility] [address] [address] [address] Maxx Downey MCH (RBC) [Entitic mass] 29.4 pg Normal 26.7-34.[address] [facility] Comment on above: Performed By: #### D RUGRPD #### [facility] [address] [address] [address] Maxx Downey MCHC (RBC) [Mass/Vol] 33.3 g/dL Normal 29.9-35.[address] [facility] Comment on above: Performed By: #### D RUGRPD #### [facility] [address] [place] [address] Dr. Maxx Downey MCV (RBC) [Entitic vol] 88.3 fL Normal 81.0-99.[address] [facility] Comment on above: Performed By: #### D RUGRPD #### [facility] [address] [address] [address] Maxx Downey MONO # 0.7 103/ul Normal 0.3-0.[address] [facility] Comment on above: Performed By: #### D RUGRPD #### [facility] [address] [place] [address] Dr. Maxx Downey Monocytes/100 WBC (Bld) 5.6 % Normal 1.7-12.0 [facility] Comment on above: Performed By: #### D RUGRPD #### [facility] [address] [address] [address] Maxx Downey NEUT # 9.4 103/ul Critically high 1.4-6.5 [facility] Comment on above: Performed By: #### D RUGRPD #### [facility] [address] [place] [address] Dr. Maxx Downey Neutrophils/100 WBC (Bld) 76.1 % Critically high 43.0-75.0 [facility] Comment on above: Performed By: #### D RUGRPD #### [facility] [address] [address] [address] Maxx Downey Platelet mean volume (Bld) [Entitic vol] 9.7 fL Normal 9.5-13.[address] [facility] Comment on above: Performed By: #### D RUGRPD #### [facility] [address] [address] [address] Maxx Downey PLT 263 103/ul Normal 150-[address] [facility] Comment on above: Performed By: #### D RUGRPD #### [facility] [address] [address] [address] Maxx Downey RBC 3.94 106/ul Critically low 4.20-5.40 [facility] Comment on above: Performed By: #### D RUGRPD #### [facility] [address] [address] [address] Maxx Downey WBC 12.4 103/ul Critically high 4.0-11.0 [facility] Comment on above: Performed By: #### D RUGRPD #### [facility] [address] [address] [address] Maxx Downey CULTURE URINEon 10-08-2022 CULTURE URINE Culture Observations: LIGHT GROWTH OF MIXED GENITAL CHANELLE. NO POTENTIAL PATHOGENS SEEN. Normal [facility] Comment on above: Performed By: #### H H #### [facility] [address] [address] [address] Maxx Downey GLYCOHEMOGLOBIN A1Con 2021 ADA RECOMMENDATION SEE BELOW Normal [facility] Comment on above: Result Comment: ADA RECOMMENDED LIMIT 4.0 - 6.0 ADA THERAPEUTIC TARGET < 7.0 ACTION SUGGESTED > 7.0 Performed By: #### A 1C #### [facility] [address] [place] [address] Dr. Maxx Downey Glucose [Mass/Vol] 105 mg/dL Normal [facility] Comment on above: Performed By: #### A 1C #### [facility] [address] [place] [address] Dr. Maxx Downey HbA1c (Bld) [Mass fraction] 5.3 % Normal 4.5-6.[address] [facility] Comment on above: Performed By: #### A 1C #### [facility] [address] [place], [place] [address] Dr. Maxx Downey TYPE AND SCREENon 10-08-2022 TYPE AND SCREEN Negative Normal [facility] Comment on above: Performed By: #### H H #### [facility] [address] [place], [place] [address] Dr. Maxx Downey US PREG ANATOMY SINGLEon [...] JUSTIN HERNANDEZ Date: 2022-08-22 17:16 Normal [facility] ED Note-Physicianon 08-07-20 22 ED Note-Physician [id number]. [id number] A1#[id number]:127 Normal [facility] Lyme, Total Ab with Reflexon 08-04-2022 Lyme Total Antibody Negative Normal Negative [facility] Comment on above: Result Comment: Lyme Antibody Negative No laboratory evidence of infection with B. burgdorferi (Lyme disease). Negative results may occur in patients recently infected (less than or equal to 14 days) with B. burgdorferi. If recent infection is suspected, repeat testing on a new sample collected in 7 to 14 days is recommended. Performed at: - [facility] [address] [id number] [employer]isher [employer] Buffer: Juan Miguel Bennett PhD, Phone: [phone] PERFORMED BY: [facility] [address] [address] PATHOLOGIST [employer] BRIAN RIVAS M.D. Performed By: #### L [...] 2 to 4 weeks, only if needed [address] [place] [address] Additional Instructions: Patient Education Breast Tenderness Sinusitis, [...] (more content not included)... Normal [facility] Comment on above: Result Comment: Elec [...] home: Medicines ? 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 ? Do not smoke. Avoid being around [...] (more content not included)... Normal [facility] Ambulatory Visit Summaryon 0 03-16-2022 Ambulatory Visit Summary TEVIN PRESLEY :2000 Visit Date:03/16/2022 Ambulatory Visit Instructions Your [...] no longer receiving treatment for. seasonal allergies Gail [facility] Family Medicine Video Visit - Telehealthon [...] Ordered: TELEHEALTH Office Visit Level 2 Est 16150 Orders: albuterol, 2 puff(s), Inhalation, q6hr for [...] Family History Fibromyalgia: Mother. Normal [facility] Comment on above: Result Comment: Elec tronically Signed By: Saeed MEJIA DO.anish\Date and Time Signed: 11/28/21 15:55 EST Vital Signs Date Time Vital Sign Value Performing Clinician Facility 10-06-2024 10:35-0500 Body mass index (BMI) [Ratio] 25.09 kg/m2 Sarah Richard PA Work Phone: [facility] 10-06-2024 10:35-0500 Body weight 83.92 kg Sarah Richard PA Work Phone: [facility] 10-06-2024 10:35-0500 Diastolic blood pressure 60 mm[Hg] Sarah Felch PA Work Phone: [facility] 10-06-2024 10:35-0500 Systolic blood pressure 110 mm[Hg] Sarah Felch PA Work Phone: [facility] 09-22-2024 10:19-0400 Body mass index (BMI) [Ratio] 24.66 kg/m2 Vanessa Gilmer DO Work Phone: [facility] 09-22-2024 10:19-0400 Body weight 82.46 kg Vanessa Gilmer DO Work Phone: [facility] 09-22-2024 10:19-0400 Diastolic blood pressure 68 mm[Hg] Vanessa Gilmer DO Work Phone: [facility] 09-22-2024 10:19-0400 Systolic blood pressure 106 mm[Hg] Vanessa Gilmer DO Work Phone: [facility] 09-08-2024 10:07-0400 Body mass index (BMI) [Ratio] 24.28 kg/m2 Sarah Richard PA Work Phone: [facility] 09-08-2024 10:07-0400 Body weight 81.19 kg Sarah Felch PA Work Phone: [facility] 09-08-2024 10:07-0400 Diastolic blood pressure 70 mm[Hg] Sarah Felch PA Work Phone: [facility] 09-08-2024 10:07-0400 Systolic blood pressure 110 mm[Hg] Sarah Felch PA Work Phone: [facility] 08-04-2022 17:10-0400 Body height 180.34 cm DO Saeed Roberto Work Phone: [facility] 08-04-2022 17:10-0400 Body temperature 99.7 [degF] DO Saeed Mejia Work Phone: [facility] 08-04-2022 17:10-0400 Body weight 74 kg DO Saeed Mejia Work Phone: [facility] 08-04-2022 17:10-0400 Diastolic blood pressure 67 mm[Hg] DO Saeed Mejia Work Phone: [facility] 08-04-2022 17:10-0400 Heart rate 104 /min DO Saeed Mejia Work Phone: [facility] 08-04-2022 17:10-0400 Respiratory rate 18 /min DO Saeed Mejia Work Phone: [facility] 08-04-2022 17:10-0400 SaO2% (BldA) [Mass fraction] 97 % DO Saeed Mejia Work Phone: [facility] 08-04-2022 17:10-0400 Systolic blood pressure 122 mm[Hg] DO Saeed Mejia Work Phone: [facility] 03-16-2022 15:23-0400 Blood Pressure Location KEVIN SIDELL [facility] 03-16-2022 15:23-0400 Diastolic blood pressure 74 mm[Hg] KEVIN SIDELL [facility] 03-16-2022 15:23-0400 Heart rate 110 /min KEVIN SIDELL [facility] 03-16-2022 15:23-0400 SaO2% (BldA) [Mass fraction] 98 % KEVIN SIDELL [facility] 03-16-2022 15:23-0400 Systolic blood pressure 112 mm[Hg] KEVIN BUCKNER [facility] Encounters Encounter Date Encounter Type Care Provider Facility Start: 10-19-2024 End: 10-19-2024 Bamboo flowsheet Vanessa Gilmer DO Work Phone: [facility] Start: 10-19-2024 End: 10-19-2024 Bamboo flowsheet Vanessa Gilmer DO Work Phone: [facility] Start: 10-06-2024 End: 10-06-2024 Bamboo flowsheet Sarah TREVIZO Work Phone: [facility] Start: 10-06-2024 End: 10-06-2024 Bamboo flowsheet Sarah TREVIZO Work Phone: [facility] Start: 10-06-2024 End: 10-06-2024 ambulatory SARAH RAMOS Not Available Start: 10-06-2024 End: 10-06-2024 flow sheet Sarah TREVIZO Work Phone: [facility] Comment on above: Third trimester preg naif; 34 weeks gestation of Start: 09-22-2024 End: 09-22-2024 Bamboo flowsheet Vanessa Gilmer DO Work Phone: [facility] Start: 09-22-2024 End: 09-22-2024 Bamboo flowsheet Vanessa Gilmer DO Work Phone: [facility] Start: 09-22-2024 End: 09-22-2024 ambulatory VANESSA GILMER Not Available Start: 09-22-2024 End: 09-22-2024 flow sheet Vanessa Gilmer DO Work Phone: [facility] Comment on above: Third trimester preg naif; 32 weeks gestation of Start: 09-08-2024 End: 09-08-2024 Bamboo flowsheet Sarah TREVIZO Work Phone: [facility] Start: 09-08-2024 End: 09-08-2024 Bamboo flowsheet Sarah TREVIZO Work Phone: [facility] Start: 09-08-2024 End: 09-08-2024 ambulatory SARAH RICHARD Not Available Start: 09-08-2024 End: 09-08-2024 flow sheet Sarah Felch PA Work Phone: [facility] Comment on above: 30 weeks gestation o f ; Third trimester Start: 08-31-2024 End: 09-01-2024 Clinisync Result Encounter Sarah TREVIZO Work Phone: [facility] Unsolicited Start: 08-31-2024 End: 09-01-2024 Clinisync Result Encounter Sarah Richard PA Work Phone: [facility]solicited Start: 08-27-2024 End: 08-27-2024 ambulatory SRAAH RICHARD Not Available Start: 07-27-2024 End: 07-27-2024 ambulatory VANESSA GILMER Not Available Start: 06-29-2024 End: 06-29-2024 ambulatory SARAH RICHARD Not Available Start: 06-08-2024 End: 06-08-2024 ambulatory VANESSA GILMER Not Available Start: 05-11-2024 End: 05-11-2024 ambulatory VANESSA GILMER Not Available Start: 04-10-2024 End: 04-10-2024 ambulatory SARAH RICHARD Not Available Start: 12-26-2023 End: 12-26-2023 ambulatory SARAH RICHARD Not Available Start: 01-03-2023 End: 01-03-[address] VANESSA SCHERER Facility:[facility] Start: 12-31-2022 End: 01-02-2023 Evaluation and management of inpatient DR SAEED MASSEY Facility:[facility] Start: 12-27-2022 End: 12-28-[address] VANESSA SCHERER Facility:[facility] Start: 12-13-2022 End: 12-13-2022 ambulatory JOSELINE RAMOS Facility:[facility] Start: 11-29-2022 End: 11-30-[address] VANESSA SCHERER Facility:[facility] Start: 10-31-2022 End: 10-31-[address] AVNESSA SCEHRER Facility:[facility] Start: 10-23-2022 End: 10-24-[address] SAEED MEJIA Facility:[facility] Start: 10-17-2022 End: 10-18-[address] SAEED MEJIA Facility:[facility] Start: 10-08-2022 End: 10-09-[address] VANESSA SCHERER Facility:[facility] Start: 08-22-2022 End: 08-23-[address] VANESSA SCHERER Facility:[facility] Start: 08-04-2022 End: 08-04-2022 Emergency department patient visit Saeed Mejia Facility:[facility] Start: 08-04-2022 End: 08-04-2022 Emergency department patient visit DO Saeed Mejia Work Phone: [facility] Start: 03-16-2022 End: 03-16-2022 Patient encounter procedure KEVIN BUCKNER [facility] Procedures Date Procedure Procedure Detail Performing Clinician Start: 10-06-2024 Urnls dip stick/tabl et rgnt non-auto w/o micrscp Sarah TREVIZO Work Phone: Start: 09-22-2024 Urnls dip stick/tabl et rgnt non-auto w/o micrscp Vanessa Scherer DO Work Phone: Start: 09-08-2024 Urnls dip stick/tabl et rgnt non-auto w/o micrscp Sarah TREVIZO Work Phone: Start: 08-31-2024 ALL MISCELLANEOUS TEST Sarah TREVIZO Work Phone: Start: 12-31-2022 Delivery of Products of Conception, External Approach JOSELINE RAMOS Start: 12-31-2022 Division of Female Perineum, External Approach JOSELINE RAMOS Start: 12-31-2022 Repair Perineum Musc le, Open Approach JOSELINE RAMOS arm surgery KEVIN BUCKNER Plan of Treatment Date Care Activity Detail Author Start: 10-06-2024 End: 10-06-2024 Patient encounter procedure 10/06/2024 9:40 AM EST Routine [facility] [address] [place] [id number] Sarah Ramos PA [address] [place], [place] [id number] [facility] Start: 09-22-2024 End: 09-22-2024 Patient encounter procedure 09/22/2024 10:00 AM EDT Routine [facility] [address] [place] [phone] Vanessa Scherer DO [address], [place] [id number] [facility] Start: 09-08-2024 End: 09-08-2024 Patient encounter procedure 09/08/2024 9:30 AM EDT Routine [facility] [address] [place] [phone] Sarah Ramos PA [address] [place], [place] [id number] [facility] Start: 09-08-2024 End: 09-08-2024 Professional / ancillary services management 09/08/2024 9:00 AM EDT Ancillary Procedure [facility] [address] [place] [address] [facility] Start: 08-04-2022 Borrelia burgdorferi DNA assay [facility] Work Phone: Borrelia burgdorferi Ab [Interpretation] in Serum [facility] Work Phone: Borrelia burgdorferi IgG Ab [Presence] in Serum or Plasma by Immunoassay [facility] Work Phone: Borrelia burgdorferi IgG+IgM Ab [Presence] in Serum by Immunoassay [facility] Work Phone: Borrelia burgdorferi IgM Ab [Presence] in Serum or Plasma by Immunoassay [facility] Work Phone: Patient Education Skin Rash ED [facility] Work Phone: Patient referral [facility] Work Phone: Payers Date Payer Category Payer Blue [facility] BCBS [id number] 2023 Unknown BCBS BCBS [id number] 2023-Present [phone] [place] [id number] 2023 Unknown [id number] 2022 Self-pay [id number] 1998 Unknown [id number] [id number] .2.593 1998 Unknown [id number] 2.16.840.1.615752.3.579 .2.593 1998 Unknown [id number] 2.16.840.1.678177.3.579 .2.593 1998 Unknown [id number] 2.16.840.1.890227.3.579 .2.593 1998 Unknown [id number] 2.16.840.1.137864.3.579 .2.593 1998 Unknown [id number] 2.16.840.1.649910.3.579 .2.593 1998 Unknown [id number] 2.16.840.1.556131.3.579 .2.593 1998 Unknown [id number] 2.16.840.1.323439.3.579 .2.593 1998 Unknown [id number] 2.16.840.1.759167.3.579 .2.593 1998 Unknown [id number] 2.16.840.1.013764.3.579 .2.593 1998 Unknown [id number] 2.16.840.1.116624.3.579 .2.125 1998 Unknown [id number] 2.16840.1.109676.3.579 .2.125 1998 Unknown [id number] 2.16.840.1.258126.3.579 .2.1258 1998 Unknown [id number] 2.16.840.1.974449.3.579 .2.9 1998 Unknown [id number] 1998 Unknown [id number] .2.1258 1998 Unknown [id number] .2.125 1998 Unknown [id number] .2.1258 1998 Unknown [id number] .2.1259 1998 Unknown [id number] .2.1259 1961 Private Health Insurance [id number] Unknown [id number] .2.531 Social History Date Type Detail Facility Start: 03-16-2022 End: 05-11-2024 Tobacco smoking status [facility] Start: 05-11-2024 Sex Assigned At Female F [facility] Start: 2000 Sex Assigned At Female F [facility] Start: 05-11-2024 Tobacco use and exposure Smokeless tobacco non-user [facility] Start: 08-27-2024 End: 10-06-2024 Alcoholic beverage intake Ex-drinker (finding) [facility] Start: 05-11-2024 History of Social function [facility] Start: 02-21-2024 [facility] History of Present illness Narrative 10-06-2024 JOSELINE Quesada - 10/06/2024 9:40 AM EST Note Date & Type Note Facility 10-06-2024 History of Presen t illness Narrative Reason for Appointment: Patient ID: Tevin Presley is a 24 y.o. female who presents for Routine Visit Patient presents today for Return OB appointment. MEDICATIONS Current Outpatient Medications Medication Instructions Zswhdrjd-Zjp-Hu-FA (, w/Iron & FA,) 27-0.8 MG tablet Every 24 hours ALLERGIES No Known Allergies PROBLEMS Active Ambulatory Problems Diagnosis Date Noted No Active Ambulatory Problems Resolved Ambulatory Problems Diagnosis Date Noted No Resolved Ambulatory Problems No Additional Past Medical History HISTORY PAST MEDICAL HISTORY SOCIAL HISTORY History reviewed. No pertinent past medical history. Social History Tobacco Use Smoking status: Never Smokeless tobacco: Never Substance Use Topics Alcohol use: Not Currently Drug use: Not Currently FAMILY HISTORY No family history on file. SURGICAL HISTORY History reviewed. No pertinent surgical history. REVIEW OF SYSTEMS Review of Systems: Review of Systems Constitutional: Negative. HENT: Negative. Eyes: Negative. Respiratory: Negative. Cardiovascular: Negative. Gastrointestinal: Negative. Genitourinary: Negative. Musculoskeletal: Negative. Skin: Negative. Neurological: Negative. All other systems reviewed and are negative. Hematological: Negative. Endocrine: Negative. Allergic/Immunologic: Negative. OBJECTIVE Objective: Physical Exam Constitutional: Appearance: Normal appearance. She is normal weight. HENT: Head: Normocephalic. Cardiovascular: Rate and Rhythm: Normal rate. Pulses: Normal pulses. Pulmonary: Effort: Pulmonary effort is normal. Breath sounds: Normal breath sounds. Abdominal: Palpations: Abdomen is soft. Musculoskeletal: General: Normal range of motion. Neurological: General: No focal deficit present. Mental Status: She is alert and oriented to person, place, and time. Psychiatric: Mood and Affect: Mood normal. Behavior: Behavior normal. Thought Content: Thought content normal. Judgment: Judgment normal. Vitals and nursing note reviewed. Vitals: Estimated body mass index is 25.09 kg/m as calculated from the following: Height as of 02/20/23: 6'. Weight as of this encounter: 185 lb. BP: 110/60 Patient's last menstrual period was 02/07/2024. ASSESSMENT & PLAN ICD-10-CM 1. Third trimester Z34.93 POCT urinalysis dipstick manually resulted 2. 34 weeks gestation of Z3A.34 POCT urinalysis dipstick manually resulted Return OB: Patient presents today for a routine obstetrics appointment. Patient is currently 34w4d . Patient states she is doing well but has complaints of being tired due to current . Patient has verbalizes frequent movement. labor precautions was discussed/given and patient was instructed to perform kick counts three times a day. Orders Placed This Encounter Procedures POCT urinalysis dipstick manually resulted Follow Up: Patient is to return to office in 2 week for routine OB appointment. Documented by JOSELINE Quesada on behalf of: JOSELINE Quesada documented in this encounter [facility] History of Present illness Narrative 09-22-2024 Carolina Valdez LPN - 09/22/2024 10:00 AM EDT Note Date & Type Note Facility 09-22-2024 History of Presen t illness Narrative Reason for Appointment: Patient ID: Tevin Presley is a 24 y.o. female who presents for Routine Visit Patient presents today for Return OB appointment. MEDICATIONS Current Outpatient Medications Medication Instructions Holrexhe-Uws-Zw-FA (, w/Iron & FA,) 27-0.8 MG tablet Every 24 hours ALLERGIES No Known Allergies PROBLEMS Active Ambulatory Problems Diagnosis Date Noted No Active Ambulatory Problems Resolved Ambulatory Problems Diagnosis Date Noted No Resolved Ambulatory Problems No Additional Past Medical History HISTORY PAST MEDICAL HISTORY SOCIAL HISTORY History reviewed. No pertinent past medical history. Social History Tobacco Use Smoking status: Never Smokeless tobacco: Never Substance Use Topics Alcohol use: Not Currently Drug use: Not Currently FAMILY HISTORY No family history on file. SURGICAL HISTORY History reviewed. No pertinent surgical history. REVIEW OF SYSTEMS Review of Systems: Review of Systems Constitutional: Negative. HENT: Negative. Eyes: Negative. Respiratory: Negative. Cardiovascular: Negative. Gastrointestinal: Negative. Genitourinary: Negative. Musculoskeletal: Negative. Skin: Negative. Neurological: Negative. All other systems reviewed and are negative. Hematological: Negative. Endocrine: Negative. Allergic/Immunologic: Negative. OBJECTIVE Objective: Physical Exam Constitutional: Appearance: Normal appearance. She is well-developed. Cardiovascular: Rate and Rhythm: Normal rate and regular rhythm. Pulmonary: Effort: Pulmonary effort is normal. Breath sounds: Normal breath sounds. Abdominal: General: Bowel sounds are normal. There is no distension. Palpations: Abdomen is soft. Tenderness: There is no abdominal tenderness. There is no guarding or rebound. Musculoskeletal: General: No swelling. Normal range of motion. Right lower leg: No edema. Left lower leg: No edema. Neurological: Mental Status: She is alert and oriented to person, place, and time. Skin: General: Skin is warm and dry. Psychiatric: Mood and Affect: Mood normal. Behavior: Behavior normal. Vitals and nursing note reviewed. Exam conducted with a water tester present. Vitals: Estimated body mass index is 24.28 kg/m as calculated from the following: Height as of 02/20/23: 6'. Weight as of 09/08/24: 179 lb. BP: Patient's last menstrual period was 02/07/2024. ASSESSMENT & PLAN ICD-10-CM 1. Third trimester Z34.93 2. 32 weeks gestation of Z3A.32 Return OB: Patient presents today for a routine obstetrics appointment. Patient is currently 32w4d . Patient states she is doing well but has complaints of being tired due to current . Patient has verbalizes frequent movement. labor precautions was discussed/given and patient was instructed to perform kick counts three times a day. No orders of the defined types were placed in this encounter. Follow Up: Patient is to return to office in 2 week for routine OB appointment. Documented by Carolina Valdez LPN on behalf of: Vanessa Scherer DO documented in this encounter [facility] History of Present illness Narrative 09-08-2024 JOSELINE Quesada - 09/08/2024 9:30 AM EDT Note Date & Type Note Facility 09-08-2024 History of Presen t illness Narrative Reason for Appointment: Patient ID: Tevin Presley is a 24 y.o. female who presents for Routine Visit Patient presents today for Return OB appointment. MEDICATIONS Current Outpatient Medications Medication Instructions Igijnjme-Cfj-Wz-FA (, w/Iron & FA,) 27-0.8 MG tablet Every 24 hours ALLERGIES No Known Allergies PROBLEMS Active Ambulatory Problems Diagnosis Date Noted No Active Ambulatory Problems Resolved Ambulatory Problems Diagnosis Date Noted No Resolved Ambulatory Problems No Additional Past Medical History HISTORY PAST MEDICAL HISTORY SOCIAL HISTORY No past medical history on file. Social History Tobacco Use Smoking status: Never Smokeless tobacco: Never Substance Use Topics Alcohol use: Not Currently Drug use: Not Currently FAMILY HISTORY No family history on file. SURGICAL HISTORY No past surgical history on file. REVIEW OF SYSTEMS Review of Systems: Review of Systems Constitutional: Negative. HENT: Negative. Eyes: Negative. Respiratory: Negative. Cardiovascular: Negative. Gastrointestinal: Negative. Genitourinary: Negative. Musculoskeletal: Negative. Skin: Negative. Neurological: Negative. All other systems reviewed and are negative. Hematological: Negative. Endocrine: Negative. Allergic/Immunologic: Negative. OBJECTIVE Objective: Physical Exam Constitutional: Appearance: Normal appearance. She is normal weight. HENT: Head: Normocephalic. Cardiovascular: Rate and Rhythm: Normal rate. Pulses: Normal pulses. Pulmonary: Effort: Pulmonary effort is normal. Breath sounds: Normal breath sounds. Abdominal: Palpations: Abdomen is soft. Musculoskeletal: General: Normal range of motion. Neurological: General: No focal deficit present. Mental Status: She is alert and oriented to person, place, and time. Psychiatric: Mood and Affect: Mood normal. Behavior: Behavior normal. Thought Content: Thought content normal. Judgment: Judgment normal. Vitals and nursing note reviewed. Vitals: Estimated body mass index is 24.28 kg/m as calculated from the following: Height as of 02/20/23: 6'. Weight as of this encounter: 179 lb. BP: 110/70 Patient's last menstrual period was 02/07/2024. ASSESSMENT & PLAN ICD-10-CM 1. 30 weeks gestation of Z3A.30 POCT urinalysis dipstick manually resulted 2. Third trimester Z34.93 POCT urinalysis dipstick manually resulted Return OB: Patient presents today for a routine obstetrics appointment. Patient is currently 30w4d . Patient states she is doing well but has complaints of being tired due to current . Patient has verbalizes frequent movement. labor precautions was discussed/given and patient was instructed to perform kick counts three times a day. Orders Placed This Encounter Procedures POCT urinalysis dipstick manually resulted Follow Up: Patient is to return to office in 2 week for routine OB appointment. Documented by JOSELINE Quesada on behalf of: JOSELINE Quesada documented in this encounter [facility] Evaluation + Plan note Note Date & Type Note Facility Evaluation + Plan note No data available for this section [facility] Evaluation note Note Date & Type Note Facility Evaluation note No assessment information availa [facility] Work Phone: Evaluation note Note Date & Type Note Facility Evaluation note Diagnosis 30 weeks gestation of Third trimester state, incidental documented in this encounter [facility] Evaluation note Note Date & Type Note Facility Evaluation note Diagnosis Third trimester state, incidental 32 weeks gestation of documented in this encounter [facility] Evaluation note Note Date & Type Note Facility Evaluation note Diagnosis Third trimester state, incidental 34 weeks gestation of documented in this encounter [facility] Hospital Discharge instructions Note Date & Type Note Facility Hospital Discharge instructions No data available for this section [facility] [place] Chief Complaint and Reason for Visit Chief [...] section and content) DATE CREATED AUTHOR 08/07/2022 [facility] DATE CREATED AUTHOR AUTHOR'S ORGANIZ ATION 09/01/2022 [facility] DATE CREATED AUTHOR AUTHOR'S ORGANIZ ATION 01/16/2023 [facility] DATE CREATED AUTHOR AUTHOR'S ORGANIZ ATION 10/07/2024 [facility] EPIC Reason for Visit (unrecogniz ed section and content) Reason Comments Routine Visit FOR RECORDS PERTAINING TO PATIENTS WHO ARE [...] BE BASED ON THE PRIMARY CLINICAL RECORDS. [employer] [facility]. provides no warranty or guarantee of the accuracy or completeness of information in this document.
== END 2024-10-19 21:18 | disposition home or self-care (01) ==
LOC: LAB 21:17
PROVIDERS: PCP Family Medicine; Visit Provider Obstetrics & Gynecology
DX: Z34.93 Encounter for supervision of normal pregnancy, unspecified, third trimester (principal)
CPT/HCPCS: 87081; 87150

== ENCOUNTER 2024-11-01 15:29 | Inpatient (IN) | payer BC, SELFPAY ==
--- OUTSIDE RECORDS SUMMARY | 2024-11-01 15:33 | XMS_ITS | CCD ---
Author Organization [facility] Care Team Providers Care Life Insurance Actuary Name Role Phone Saeed MEJIA Primary Care [...] Unavaila ble GILMER, DR MENDEZ Admitting Unavailable [place], DR ESCOBAR Chatman Consulting Unavailable GILMER, DR MENDEZ Consulting Unavailable Unavailable Primary Care Provider Unavailabl e RICHARD, SARAH Attending Unavailable GILMER, VANESSA Attending Unavailable GILMER, VANESSA Attending Unavailable RICHARD, SARAH Attending Unavailable GILMER, VANESSA Attending Unavailable RICHARD, SARAH Attending Unavailable RICHARD, SARAH Attending Unavailable GILMER, [...] day(s), # 14 tab(s), Refills(s) 0, Pharmacy: [facility]/pharmacy #[id number], 180, cm, 03/16/22 15:28:00 EDT, Height/Length Dosing, 73.1, kg, 03/16/22 15:28:00 EDT, Weight Dosing Start Date: 03/16/22 Stop Date: 03/23/22 Status: Ordered loratadine 10 mg oral tablet (1 source) Start: 07-18-2020 take 1 tablet by mouth once daily loratadine 10 mg Tab 10 mg = 1 tab(s), Oral, Daily, # 15 tab(s), Refills(s) 1, Pharmacy: [id number], 180, cm, 07/18/20 9:00:00 EDT, Height/Length Dosing, 70.8, kg, 07/18/20 9:00:00 EDT, Weight Dosing Start Date: 07/18/20 Status: Ordered ondansetron 4 mg oral tablet (1 source) Serotonin-3 Receptor Antagonist Start: 03-16-2022 take 1 tablet by mouth every six hours as needed for nausea ondansetron 4 mg Tab 4 mg = 1 tab(s), Oral, q6hr, PRN Nausea/Vomiting, # 12 tab(s), Refills(s) 0, Pharmacy: [facility]/pharmacy #[id number], 180, cm, 03/16/22 15:28:00 EDT, Height/Length Dosing, 73.1, kg, 03/16/22 15:28:00 EDT, Weight Dosing Start Date: 03/16/22 Status: Ordered Pnv Cmb#95-Ferrous Fumarate-Fa () 28 mg iron- 800 mcg Tablet (1 source) Start: 08-04-2022 take 1 tablet by mouth once daily Pnv Cmb#95-Ferrous Fumarate-Fa () 28 mg iron- 800 mcg Tablet Active 1 TAB PO Daily August 04, 2022 12:00am Ezkuqiva-Kbu-Np-FA (, w/Iron & FA,) 27-0.8 MG tablet (16 sources) Hrmzewxq-Vtv-Rj-FA (, w/Iron & FA,) 27-0.8 MG tablet 1 (one) time each day at the same time Active Sprintec oral tablet (1 source) Start: 01-16-2022 take 1 tablet by mouth once daily Sprintec oral tablet 1 tab(s), Oral, Daily, 28 tab(s), Refill(s) 5, [id number], 180, cm, 07/26/21 12:56:00 EDT, [...] 10-31-2022 Episodic Other and delivery including normal (20 sources) Encounter for routine follow-up; Translations: [Encounter [...] [34 weeks gestation of ] 10-06-2024 Episodic Residual codes; unclassified (2 sources) Gestation period, 36 weeks; Translations: [36 weeks gestation of ] 10-19-2024 Episodic Residual codes; unclassified (2 sources) Gestation period, 37 weeks; Translations: [37 weeks gestation of ] 10-27-2024 Episodic Unclassified (1 source) Body mass index [...] transmission; Translations: [CONTCT W EXPOS INFECT SEXUAL TRNS] Onset: 10-13-2022 Episodic Results Test Name Value Interpretation Reference Range Facility Urinalysis macro (dipstick) panel (U)on 10-27-2024 Bilirubin, UA Negative Negative - 4(70) +++ mg/dL [facility] Blood, UA Negative Negative - 50 Roman/mcL [facility] Healthcare Clarity, UA Clear [facility] Healthca re Color, UA Yellow [facility] Healthcar e Glucose, UA Negative Negative - 1999(110) ++++ mg/dL [facility] Interpretation and review of laboratory results Normal [facility] Ketones, UA Negative Negative - 160(16) ++++ mg/dL [facility] Leukocytes, UA Negative Negative - 500+++ Ludin/mcL [facility] Healthcare Nitrite, UA Negative Negative - Positive [facility] pH, UA 6 5 - 9 [facility] Healthcar e Protein, UA Negative Negative - 1999(20) ++++ mg/dL [facility] Healthcare Spec Grav, UA 1.02 1 - 1.03 [facility] Urobilinogen, UA 0.2 0.2 - 12 mg/dL [facility] Urinalysis macro (dipstick) panel (U)on 10-19-2024 Bilirubin, UA Negative Negative - 4(70) +++ mg/dL [facility] Blood, UA Negative Negative - 50 Roman/mcL [facility] Healthcare Clarity, UA Clear [facility] Healthca re Color, UA Yellow [facility] Healthcar e Glucose, UA Positive Negative - 1999(110) ++++ mg/dL [facility] Interpretation and review of laboratory results Abnormal [facility] Ketones, UA Positive Negative - 160(16) ++++ mg/dL [facility] Healthcare Leukocytes, UA Positive Negative - 500+++ Ludin/mcL [facility] Healthcare Nitrite, UA Negative Negative - Positive [facility] pH, UA 6 5 - 9 [facility] Protein, UA Negative Negative - 1999(20) ++++ mg/dL [facility] Healthcare Spec Grav, UA 1.015 1 - 1.03 [facility] Urobilinogen, UA 1.0 0.2 - 12 mg/dL [facility] Urinalysis macro (dipstick) panel (U)on 10-06-2024 Bilirubin, UA Negative Negative - 4(70) +++ mg/dL [facility] Blood, UA Negative Negative - 50 Roman/mcL [facility] Healthcare Clarity, UA Clear [facility] re Color, UA Yellow [facility] Glucose, UA Negative Negative - 1999(110) ++++ mg/dL [facility] Interpretation and review of laboratory results Normal [facility] Ketones, UA Negative Negative - 160(16) ++++ mg/dL [facility] Leukocytes, UA Negative Negative - 500+++ Ludin/mcL [facility] Healthcare Nitrite, UA Negative Negative - Positive [facility] pH, UA 7 5 - 9 [facility] Healthcar e Protein, UA Negative Negative - 1999(20) ++++ mg/dL [facility] Spec Grav, UA 1.01 1 - 1.03 [facility] Urobilinogen, UA 1.0 0.2 - 12 mg/dL [facility] Urinalysis macro (dipstick) panel (U)on 09-22-2024 Bilirubin, UA Negative Negative - 4(70) +++ mg/dL [facility] Blood, UA Negative Negative - 50 Roman/mcL [facility] Healthcare Clarity, UA Clear [facility] Healthca re Color, UA Yellow [facility] Healthcar e Glucose, UA Negative Negative - 1999(110) ++++ mg/dL [facility] Interpretation and review of laboratory results Normal [facility] Ketones, UA Negative Negative - 160(16) ++++ mg/dL [facility] Leukocytes, UA Negative Negative - 500+++ Ludin/mcL [facility] Healthcare Nitrite, UA Negative Negative - Positive [facility] pH, UA 6 5 - 9 [facility] Protein, UA Negative Negative - 1999(20) ++++ mg/dL [facility] Spec Grav, UA 1.02 1 - 1.03 [facility] Urobilinogen, UA 1.0 0.2 - 12 mg/dL [facility] Urinalysis macro (dipstick) panel (U)on 09-08-2024 Bilirubin, UA Positive Negative - 4(70) +++ mg/dL [facility] Comment on above: small Blood, UA Negative Negative - 50 Roman/mcL [facility] Clarity, UA Clear [facility] re Color, UA [facility] e Glucose, UA Negative Negative - 1999(110) ++++ mg/dL [facility] Interpretation and review of laboratory results Abnormal [facility] Ketones, UA Positive Negative - 160(16) ++++ mg/dL [facility] Comment on above: trace Leukocytes, UA Trace Negative - 500+++ Ludin/mcL [facility] Nitrite, UA Negative Negative - Positive [facility] pH, UA 7.0 5 - 9 [facility] e Protein, UA Positive Negative - 2000(20) ++++ mg/dL [facility] Comment on above: 30 Spec Grav, UA 1.025 1 - 1.03 [facility] Urobilinogen, UA 1.0 0.2 - 12 mg/dL [facility] ALL MISCELLANEOUS TESTon MISCELLANEOUS TEST COMMENT . [facility] Comment on above: Test Ordered: [id number] Antibody Identification Antibody Id. #1 Comment Reference Range: . An antibody identification panel was non-reactive. There was no evidence of the presence of atypical red cell antibody. Jose Titer #1 DIRECTOR OF RELIGIOUS ACTIVITIES [place] Reference Range: . Antibody Id. #2 DIRECTOR OF RELIGIOUS ACTIVITIES [place] Reference Range: . Jose Titer #2 DIRECTOR OF RELIGIOUS ACTIVITIES [place] Reference Range: . Performed at: [facility] [id number] Integrated Circuit Design Engineer: Juan Miguel Bennett PhD, Phone: [phone] ANTIBODY IDENTIFICATION [facility] e CBC AUTO DIFFon 01-01-2023 BASO # 0.1 103/ul Normal 0.0-0.1 [facility] Comment on above: Performed By: #### C BC #### [facility] [address] [place] [address] Dr. Maxx Downey Basophils/100 WBC (Bld) 0.4 % Normal 0.2-2.0 [facility] Comment on above: Performed By: #### C BC #### [facility] [address] [place] [address] Dr. Maxx Downey EO # 0.1 103/ul Normal 0.0-0.7 [facility] Comment on above: Performed By: #### C BC #### [facility] [address] [place] [address] Dr. Maxx Downey Eosinophils/100 WBC (Bld) 0.4 % Critically low 0.9-7.0 [facility] Comment on above: Performed By: #### C BC #### [facility] [address] [place] [address] Dr. Maxx Downey Erythrocyte distribution width (RBC) [Ratio] 13.7 % Normal 11.0-15.0 [facility] Comment on above: Performed By: #### C BC #### [facility] [address] [place] [address] Dr. Maxx Downey Hematocrit (Bld) [Volume fraction] 27.8 % Critically low 36.0-48.0 [facility] Comment on above: Performed By: #### C BC #### [facility] [address] [place] [address] Dr. Maxx Downey Hemoglobin (Bld) [Mass/Vol] 9.0 g/dL Critically low 12.0-16.0 [facility] Comment on above: Performed By: #### C BC #### [facility] [address] [place] [address] Dr. Maxx Downey IG # 0.11 10e3/ul Critically high 0.00-0.03 [facility] Comment on above: Performed By: #### C BC #### [facility] [address] [place] [address] Dr. Maxx Downey IG % 0.7 % Critically high 0.0-0.5 [facility] Comment on above: Performed By: #### C BC #### [facility] [address] [place] [address] Dr. Maxx Downey LYMPH # 2.9 103/ul Normal 1.2-3.8 [facility] Comment on above: Performed By: #### C BC #### [facility] [address] [place] [address] Dr. Maxx Downey Lymphocytes/100 WBC (Bld) 18.2 % Critically low 20.5-60.0 [facility] Comment on above: Performed By: #### C BC #### [facility] [address] [place] [address] Dr. Maxx Downey MANUAL DIFF REQ NO Normal [facility] Comment on above: Performed By: #### C BC #### [facility] [address] [place] [address] Dr. Maxx Downey MCH (RBC) [Entitic mass] 26.8 pg Normal 26.7-34.0 [facility] Comment on above: Performed By: #### C BC #### [facility] [address] [place] [address] Dr. Maxx Downey MCHC (RBC) [Mass/Vol] 32.4 g/dL Normal 29.9-35.2 [facility] Comment on above: Performed By: #### C BC #### [facility] [address] [place] [address] Dr. Maxx Downey MCV (RBC) [Entitic vol] 82.7 fL Normal 81.0-99.0 [facility] Comment on above: Performed By: #### C BC #### [facility] [address] [place] [address] Dr. Maxx Downey MONO # 1.2 103/ul Critically high 0.3-0.8 [facility] Comment on above: Performed By: #### C BC #### [facility] [address] [place] [address] Dr. Maxx Downey Monocytes/100 WBC (Bld) 7.6 % Normal 1.7-12.0 [facility] Comment on above: Performed By: #### C BC #### [facility] [address] [place] [address] Dr. Maxx Downey NEUT # 11.6 103/ul Critically high 1.4-6.5 [facility] Comment on above: Performed By: #### C BC #### [facility] [address] [place] [address] Dr. Maxx Downey Neutrophils/100 WBC (Bld) 72.7 % Normal 43.0-75.0 [facility] Comment on above: Performed By: #### C BC #### [facility] [address] [place] [address] Dr. Maxx Downey Platelet mean volume (Bld) [Entitic vol] 9.8 fL Normal 9.5-13.5 [facility] Comment on above: Performed By: #### C BC #### [facility] [address] [place] [address] Dr. Maxx Downey PLT 270 103/ul Normal 150-450 [facility] Comment on above: Performed By: #### C BC #### [facility] [address] [place] [address] Dr. Maxx Downey RBC 3.36 106/ul Critically low 4.20-5.40 [facility] Comment on above: Performed By: #### C BC #### [facility] [address] [place] [address] Dr. Maxx Downey WBC 15.9 103/ul Critically high 4.0-11.0 [facility] Comment on above: Performed By: #### C BC #### [facility] [address] [place] [address] Dr. Maxx Downey SCREENon 01-01-2023 SCREEN Negative Normal [facility] Comment on above: Performed By: #### F ETSCRN #### [facility] [address] [place] [address] Dr. Maxx Downey AMNISUREon 12-31-2022 AMNISURE Positive Abnormal NEGATIVE [facility] Comment on above: Performed By: #### D RUGRPD #### [facility] [address] [place] [address] Dr. Maxx Downey CBC AUTO DIFFon 12-31-2022 BASO # 0.1 103/ul Normal 0.0-0.1 [facility] Comment on above: Performed By: #### C BC #### [facility] [address] [place] [address] Dr. Maxx Downey Basophils/100 WBC (Bld) 0.4 % Normal 0.2-2.0 [facility] Comment on above: Performed By: #### C BC #### [facility] [address] [address] [address] Maxx Downey EO # 0.1 103/ul Normal 0.0-0.7 [facility] Comment on above: Performed By: #### C BC #### [facility] [address] [address] [address] Maxx Downey Eosinophils/100 WBC (Bld) 0.7 % Critically low 0.9-7.0 [facility] Comment on above: Performed By: #### C BC #### [facility] [address] [address] [address] Maxx Downey Erythrocyte distribution width (RBC) [Ratio] 13.7 % Normal 11.0-15.0 [facility] Comment on above: Performed By: #### C BC #### [facility] [address] [place] [address] Dr. Maxx Downey Hematocrit (Bld) [Volume fraction] 31.1 % Critically low 36.0-48.0 [facility] Comment on above: Performed By: #### C BC #### [facility] [address] [place] [address] Dr. Maxx Downey Hemoglobin (Bld) [Mass/Vol] 10.3 g/dL Critically low 12.0-16.0 [facility] Comment on above: Performed By: #### C BC #### [facility] [address] [address] [address] Maxx Downey IG # 0.08 10e3/ul Critically high 0.00-0.03 [facility] Comment on above: Performed By: #### C BC #### [facility] [address] [address] [address] Maxx Downey IG % 0.7 % Critically high 0.0-0.5 [facility] Comment on above: Performed By: #### C BC #### [facility] [address] [address] [address] Maxx Downey LYMPH # 2.8 103/ul Normal 1.2-3.8 [facility] Comment on above: Performed By: #### C BC #### [facility] [address] [address] [address] Maxx Downey Lymphocytes/100 WBC (Bld) 22.7 % Normal 20.5-60.0 [facility] Comment on above: Performed By: #### C BC #### [facility] [address] [address] [address] Maxx Downey MANUAL DIFF REQ NO Normal [facility] Comment on above: Performed By: #### C BC #### [facility] [address] [address] [address] Maxx Downey MCH (RBC) [Entitic mass] 26.4 pg Critically low 26.7-34.0 [facility] Comment on above: Performed By: #### C BC #### [facility] [address] [place] [address] Dr. Maxx Downey MCHC (RBC) [Mass/Vol] 33.1 g/dL Normal 29.9-35.2 [facility] Comment on above: Performed By: #### C BC #### [facility] [address] [place] [address] Dr. Maxx Downey MCV (RBC) [Entitic vol] 79.7 fL Critically low 81.0-99.0 [facility] Comment on above: Performed By: #### C BC #### [facility] [address] [place] [address] Dr. Maxx Downey MONO # 0.8 103/ul Normal 0.3-0.8 [facility] Comment on above: Performed By: #### C BC #### [facility] [address] [place] [address] Dr. Maxx Downey Monocytes/100 WBC (Bld) 6.5 % Normal 1.7-12.0 [facility] Comment on above: Performed By: #### C BC #### [facility] [address] [place] [address] Dr. Maxx Downey NEUT # 8.4 103/ul Critically high 1.4-6.5 [facility] Comment on above: Performed By: #### C BC #### [facility] [address] [address] [address] Maxx Downey Neutrophils/100 WBC (Bld) 69.0 % Normal 43.0-75.0 [facility] Comment on above: Performed By: #### C BC #### [facility] [address] [address] [address] Maxx Downey Platelet mean volume (Bld) [Entitic vol] 9.4 fL Critically low 9.5-13.5 [facility] Comment on above: Performed By: #### C BC #### [facility] [address] [address] [address] Maxx Downey PLT 296 103/ul Normal 150-450 [facility] Comment on above: Performed By: #### C BC #### [facility] [address] [place] [address] Dr. Maxx Downey RBC 3.90 106/ul Critically low 4.20-5.40 [facility] Comment on above: Performed By: #### C BC #### [facility] [address] [address] [address] Maxx Downey WBC 12.1 103/ul Critically high 4.0-11.0 [facility] Comment on above: Performed By: #### C BC #### [facility] [address] [place] [address] Dr. Maxx Downey DRUG SCREEN RAPID (URINE)on 12-31-2022 AMP Negative Normal NEGATIVE [facility] Comment on above: Performed By: #### D RUGRPD #### [facility] [address] [place] [address] Dr. Maxx Downey BAR Negative Normal NEGATIVE [facility] Comment on above: Performed By: #### D RUGRPD #### [facility] [address] [place] [address] Dr. Maxx Downey BUP Negative Normal NEGATIVE [facility] Comment on above: Performed By: #### D RUGRPD #### [facility] [address] [place] [address] Dr. Maxx Downey BZO Negative Normal NEGATIVE [facility] Comment on above: Performed By: #### D RUGRPD #### [facility] [address] [place] [address] Dr. Maxx Downey BRENDA Negative Normal NEGATIVE [facility] Comment on above: Performed By: #### D RUGRPD #### [facility] [address] [place] [address] Dr. Maxx Downey CUT-OFFS SEE BELOW Normal [facility] Comment on above: Result Comment: AMP [...] ng/mL Performed By: #### D RUGRPD #### [facility] [address] [place] [address] Dr. Maxx Downey DRUG CUT HEADER DRUG CLASS TEST SYSTEM CUT-OFF CONCENTRATIONS ARE FOLLOWS: Normal [facility] Comment on above: Performed By: #### D RUGRPD #### [facility] [address] [place] [address] Dr. Maxx Downey mAMP Negative Normal NEGATIVE [facility] Comment on above: Performed By: #### D RUGRPD #### [facility] [address] [place] [address] Dr. Maxx Downey MTD Negative Normal NEGATIVE [facility] Comment on above: Performed By: #### D RUGRPD #### [facility] [address] [place] [address] Dr. Maxx Downey OPI Negative Normal NEGATIVE [facility] Comment on above: Performed By: #### D RUGRPD #### [facility] [address] [place] [address] Dr. Maxx Downey OXY Negative Normal NEGATIVE [facility] Comment on above: Performed By: #### D RUGRPD #### [facility] [address] [place] [address] Dr. Maxx Downey PCP Negative Normal NEGATIVE [facility] Comment on above: Performed By: #### D RUGRPD #### [facility] [address] [place] [address] Dr. Maxx Downey PPX Negative Normal NEGATIVE [facility] Comment on above: Performed By: #### D RUGRPD #### [facility] [address] [place] [address] Dr. Maxx Downey TCA Negative Normal NEGATIVE [facility] Comment on above: Performed By: #### D RUGRPD #### [facility] [address] [place] [address] Dr. Maxx Downey THC Negative Normal NEGATIVE [facility] Comment on above: Performed By: #### D RUGRPD #### [facility] [address] [place] [address] Dr. Maxx Downey TYPE AND SCREENon 12-31-2022 TYPE AND SCREEN Negative Normal [facility] Comment on above: Performed By: #### T NS #### [facility] [address] [place] [address] Dr. Maxx Downey UA (CLEAN/CATCH) PROFESSOR OF FINE ART/MICRO I F IND.on 12-31-2022 Bilirubin Ql (U) Negative Normal NEGATIVE [facility] Comment on above: Performed By: #### H H #### [facility] [address] [place] [address] Dr. Maxx Downey Clarity (U) CLEAR Normal CLEAR [facility] Comment on above: Performed By: #### H H #### [facility] [facility] [address] [place] [address] Dr. Maxx Downey Color (U) LT. YELLOW Normal YELLOW [facility] Comment on above: Performed By: #### H H #### [facility] [address] [place] [address] Dr. Maxx Downey Glucose Ql (U) Negative Normal NEGATIVE [facility] Comment on above: Performed By: #### H H #### [facility] [address] [place] [address] Dr. Maxx Downey Hemoglobin Ql (U) Negative Normal NEGATIVE [facility] Comment on above: Performed By: #### H H #### [facility] [address] [place] [address] Dr. Maxx Downey Ketones Ql (U) Negative Normal NEGATIVE [facility] Comment on above: Performed By: #### H H #### [facility] [address] [place] [address] Dr. Maxx Downey LEUKOCYTES Negative Normal NEGATIVE [facility] Comment on above: Performed By: #### H H #### [facility] [address] [place] [address] Dr. Maxx Downey Nitrite Ql (U) Negative Normal NEGATIVE [facility] Comment on above: Performed By: #### H H #### [facility] [address] [place] [address] Dr. Maxx Downey pH (U) 5.5 [pH] Normal 5-9 [facility] Comment on above: Performed By: #### H H #### [facility] [address] [place] [address] Dr. Maxx Downey SPEC GRAVITY <=1.005 Abnormal 1.005-<=1.025 [facility] Comment on above: Performed By: #### H H #### [facility] [address] [place] [address] Dr. Maxx Downey UA PROTEIN Negative Normal NEGATIVE/ TRACE [facility] Comment on above: Performed By: #### H H #### [facility] [address] [place] [address] Dr. Maxx Downey UR MICRO IND NOT INDICATED Normal [facility] Comment on above: Performed By: #### H H #### [facility] [address] [place] [address] Dr. Maxx Downey Urobilinogen Qn (U) 0.2 {Dom'U}/dL Normal 0.2 - 1. 0 [facility] Comment on above: Performed By: #### H H #### [facility] [address] [place] [address] Dr. Maxx Downey PREG GROWTHon 12-27-2022 US [...] JUSTIN HERNANDEZ Date: 2022-12-27 10:02 Normal [facility] GROUP B STREP CULTUREon 12-02 S. agalactiae Ag Ql (Unsp spec) Culture Observations: NEGATIVE FOR GROUP B STREPTOCOCCUS. Normal [facility] Comment on above: Performed By: #### G BSCX #### [facility] [address] [place] [address] Dr. Maxx Downey PREG GROWTHon 11-29-2022 US [...] ESCOBAR PERES Date: 2022-11-29 16:16 Normal [facility] TYPE AND SCREENon 10-23-2022 TYPE AND SCREEN Negative Normal [facility] Comment on above: Performed By: #### T NS #### [facility] [address] [place] [address] Dr. Maxx Downey GLUCOSE - 1HRon 10-17-2022 Glucose [Mass/Vol] 98 mg/dL Normal 74-106 [facility] Comment on above: Performed By: #### G LU1HR #### [facility] [address] [place] [address] Dr. Maxx Downey HEMOGRAM AND PLATELon 2021 Hematocrit (Bld) [Volume fraction] 34.7 % Critically low 36.0-48.0 [facility] Comment on above: Performed By: #### H H #### [facility] [address] [place] [address] Dr. Maxx Downey Hemoglobin (Bld) [Mass/Vol] 11.4 g/dL Critically low 12.0-16.0 [facility] Comment on above: Performed By: #### H H #### [facility] [address] [place] [address] Dr. Maxx Downey MCH (RBC) [Entitic mass] 28.9 pg Normal 26.7-34.0 [facility] Comment on above: Performed By: #### H H #### [facility] [address] [place] [address] Dr. Maxx Downey MCHC (RBC) [Mass/Vol] 32.9 g/dL Normal 29.9-35.2 [facility] Comment on above: Performed By: #### H H #### [facility] [address] [address] [address] Maxx Downey MCV (RBC) [Entitic vol] 88.1 fL Normal 81.0-99.0 [facility] Comment on above: Performed By: #### H H #### [facility] [address] [address] [address] Maxx Downey PLT 258 103/ul Normal 150-450 [facility] Comment on above: Performed By: #### H H #### [facility] [address] [address] [address] Maxx Downey RBC 3.94 106/ul Critically low 4.20-5.40 [facility] Comment on above: Performed By: #### H H #### [facility] [address] [address] [address] Maxx Downey WBC 11.9 103/ul Critically high 4.0-11.0 [facility] Comment on above: Performed By: #### H H #### [facility] [address] [address] [address] Maxx Downey HEP B SURFACE ANTIGEN SCREEN on 10-09-2022 HBsAg Screen Negative Normal Negative [facility] Comment on above: Performed By: #### H H #### [facility] [address] [address] [address] Maxx Downey HEPATITIS C VIRUS AB W/ REFL EX QUANTon 10-09-2022 HCV AB <0.1 Normal 0.0-0.9 [facility] Comment on above: Performed By: #### H H #### [facility] [address] [address] [address] Maxx Downey Interpretation: Comment Normal [facility] Comment on above: Result Comment: Nega tive Not infected with HCV, unless recent infection is suspected or other evidence exists to indicate HCV infection. Performed By: #### H H #### [facility] [address] [place] [address] Dr. Maxx Downey HIV 1 AND 2 WITH REFLEXon HIV Screen 4th Generation wRfx Non-Reactive Normal Non Reactive [facility] Comment on above: Result Comment: HIV Negative HIV-1/HIV-2 antibodies and HIV-1 p24 antigen were NOT detected. There is no laboratory evidence of HIV infection. Performed By: #### H H #### [facility] [address] [place] [address] Dr. Maxx Downey RPR QUANTon 10-09-2022 Rapid Plasma Reagin, Quant Non-Reactive Normal NonRea<1:1 [facility] Comment on above: Result Comment: Plea Note: This test does not meet current guidelines for screening and diagnosis of syphilis. This test is intended for following treatment response in patients being treated for syphilis infection. To screen for syphilis infection, a reflex cascade that includes both RPR and a treponema-specific assay should be utilized, such as Treponema pallidum (Syphilis) Screening [place] (164286) or Rapid Plasma Reagin (RPR) Test With Reflex to Quantitative RPR and Confirmatory Treponema pallidum Antibodies (793093). Performed By: #### D RUGRPD #### [facility] [address] [place] [address] Dr. Maxx Downey RUBELLA AB IGGon 10-09-2022 Rubella Antibodies, IgG 1.52 index Normal Immune >0.99 [facility] Comment on above: Result Comment: Non- immune <0.90 Equivocal 0.90 - 0.99 Immune >0.99 Performed By: #### H H #### [facility] [address] [place] [address] Dr. Maxx Downey CBC AUTO DIFFon 10-08-2022 BASO # 0.1 103/ul Normal 0.0-0.1 [facility] Comment on above: Performed By: #### D RUGRPD #### [facility] [address] [place] [address] Dr. Maxx Downey Basophils/100 WBC (Bld) 0.5 % Normal 0.2-2.0 [facility] Comment on above: Performed By: #### D RUGRPD #### [facility] [address] [place] [address] Dr. Maxx Downey EO # 0.2 103/ul Normal 0.0-0.7 [facility] Comment on above: Performed By: #### D RUGRPD #### [facility] [address] [address] [address] Maxx Downey Eosinophils/100 WBC (Bld) 1.5 % Normal 0.9-7.0 [facility] Comment on above: Performed By: #### D RUGRPD #### [facility] [address] [place] [address] Dr. Maxx Downey Erythrocyte distribution width (RBC) [Ratio] 12.7 % Normal 11.0-15.0 [facility] Comment on above: Performed By: #### D RUGRPD #### [facility] [address] [place] [address] Dr. Maxx Downey Hematocrit (Bld) [Volume fraction] 34.8 % Critically low 36.0-48.0 [facility] Comment on above: Performed By: #### D RUGRPD #### [facility] [address] [place] [address] Dr. Maxx Downey Hemoglobin (Bld) [Mass/Vol] 11.6 g/dL Critically low 12.0-16.0 [facility] Comment on above: Performed By: #### D RUGRPD #### [facility] [address] [place] [address] Dr. Maxx Downey IG # 0.07 10e3/ul Critically high 0.00-0.03 [facility] Comment on above: Performed By: #### D RUGRPD #### [facility] [address] [place] [address] Dr. Maxx Downey IG % 0.6 % Critically high 0.0-0.5 [facility] Comment on above: Performed By: #### D RUGRPD #### [facility] [address] [place] [address] Dr. Maxx Downey LYMPH # 2.0 103/ul Normal 1.2-3.8 [facility] Comment on above: Performed By: #### D RUGRPD #### [facility] [address] [place] [address] Dr. Maxx Downey Lymphocytes/100 WBC (Bld) 15.7 % Critically low 20.5-60.0 [facility] Comment on above: Performed By: #### D RUGRPD #### [facility] [address] [place] [address] Dr. Maxx Downey MANUAL DIFF REQ NO Normal [facility] Comment on above: Performed By: #### D RUGRPD #### [facility] [address] [place] [address] Dr. Maxx Downey MCH (RBC) [Entitic mass] 29.4 pg Normal 26.7-34.0 [facility] Comment on above: Performed By: #### D RUGRPD #### [facility] [address] [place] [address] Dr. Maxx Downey MCHC (RBC) [Mass/Vol] 33.3 g/dL Normal 29.9-35.2 [facility] Comment on above: Performed By: #### D RUGRPD #### [facility] [address] [place] [address] Dr. Maxx Downey MCV (RBC) [Entitic vol] 88.3 fL Normal 81.0-99.0 [facility] Comment on above: Performed By: #### D RUGRPD #### [facility] [address] [place] [address] Dr. Maxx Downey MONO # 0.7 103/ul Normal 0.3-0.8 [facility] Comment on above: Performed By: #### D RUGRPD #### [facility] [address] [place] [address] Dr. Maxx Downey Monocytes/100 WBC (Bld) 5.6 % Normal 1.7-12.0 [facility] Comment on above: Performed By: #### D RUGRPD #### [facility] [address] [place] [address] Dr. Maxx Downey NEUT # 9.4 103/ul Critically high 1.4-6.5 [facility] Comment on above: Performed By: #### D RUGRPD #### [facility] [address] [place] [address] Dr. Maxx Downey Neutrophils/100 WBC (Bld) 76.1 % Critically high 43.0-75.0 [facility] Comment on above: Performed By: #### D RUGRPD #### [facility] [address] [address] [address] Maxx Downey Platelet mean volume (Bld) [Entitic vol] 9.7 fL Normal 9.5-13.5 [facility] Comment on above: Performed By: #### D RUGRPD #### [facility] [address] [address] [address] Maxx Downey PLT 263 103/ul Normal 150-450 [facility] Comment on above: Performed By: #### D RUGRPD #### [facility] [address] [place] [address] Dr. Maxx Downey RBC 3.94 106/ul Critically low 4.20-5.40 [facility] Comment on above: Performed By: #### D RUGRPD #### [facility] [address] [address] [address] Maxx Downey WBC 12.4 103/ul Critically high 4.0-11.0 [facility] Comment on above: Performed By: #### D RUGRPD #### [facility] [address] [place] [address] Dr. Maxx Downey CULTURE URINEon 10-08-2022 CULTURE URINE Culture Observations: LIGHT GROWTH OF MIXED GENITAL CHANELLE. NO POTENTIAL PATHOGENS SEEN. Normal [facility] Comment on above: Performed By: #### H H #### [facility] [address] [place] [address] Dr. Maxx Downey GLYCOHEMOGLOBIN A1Con 2021 ADA RECOMMENDATION SEE BELOW Normal [facility] Comment on above: Result Comment: ADA RECOMMENDED LIMIT 4.0 - 6.0 ADA THERAPEUTIC TARGET < 7.0 ACTION SUGGESTED > 7.0 Performed By: #### A 1C #### [facility] [address] [place] [address] Dr. Maxx Downey Glucose [Mass/Vol] 105 mg/dL Normal [facility] Comment on above: Performed By: #### A 1C #### [facility] [address] [place], [place] [address] Dr. Maxx Downey HbA1c (Bld) [Mass fraction] 5.3 % Normal 4.5-6.2 [facility] Comment on above: Performed By: #### A 1C #### [facility] [address] [place], [place] [address] Dr. Maxx Downey TYPE AND SCREENon 10-08-2022 TYPE AND SCREEN Negative Normal [facility] Comment on above: Performed By: #### H H #### [facility] [address] [place], [place] [address] Dr. Maxx Downey US PREG ANATOMY SINGLEon [...] JUSTIN HERNANDEZ Date: 2022-08-22 17:16 Normal [facility] ED Note-Physicianon 08-07-20 22 ED Note-Physician [id number] A1#1.00CD:[address] [facility] Lyme, Total Ab with Reflexon 08-04-2022 Lyme Total Antibody Negative Normal Negative [facility] Comment on above: Result Comment: Lyme Antibody Negative No laboratory evidence of infection with B. burgdorferi (Lyme disease). Negative results may occur in patients recently infected (less than or equal to 14 days) with B. burgdorferi. If recent infection is suspected, repeat testing on a new sample collected in 7 to 14 days is recommended. Performed at: - [facility] [address] [id number] Integrated Circuit Design Engineer: Juan Miguel Bennett PhD, Phone: [phone] PERFORMED BY: [facility] [address] [place] [address] PATHOLOGIST CERAMIC TILE INSTALLATION HELPER BRIAN RIVAS M.D. Performed By: #### L [...] 2 to 4 weeks, only if needed [address] [address] [place] [address] Additional Instructions: Patient Education Breast Tenderness Sinusitis, Adult Problem List/Past Medical History Ongoing Acute sinusitis with symptoms greater than 10 days BMI 21.0-21.9, adult Breast tenderness COVID-19 virus infection Cystitis Nonsmoker Sore throat Historical seasonal allergies Procedure/Surgical History arm surgery. Medications amoxicillin-clavula harper 875 mg-125 mg oral tablet, 1 tab(s), Oral, q12hr loratadine 10 mg Tab, 10 mg= (more content not included)... Normal [facility] Comment on above: Result Comment: Elec [...] home: Medicines ? Take, use, or apply [id number] and prescription medicines only as told by [...] and water are not available, use hand copy cutter. ? Do not smoke. Avoid being around [...] or swell (more content not included)... Normal [facility] Ambulatory Visit Summaryon 0 03-16-2022 Ambulatory [...] no longer receiving treatment for. seasonal allergies [facility] Video Visit - Telehealthon [...] Ordered: TELEHEALTH Office Visit Level 2 Est 49960 Orders: albuterol, 2 puff(s), Inhalation, q6hr for [...] concerns: No., 12/14/2020 Family History Fibromyalgia: Mother. [facility] Comment on above: Result Comment: Elec tronically Signed By: Saeed MEJIA DO\.anish\Date and Time Signed: 11/28/21 15:55 EST Vital Signs Date Time Vital Sign Value Performing Clinician Facility 10-27-2024 14:38-0500 Body mass index (BMI) [Ratio] 25.23 kg/m2 Sarah TREVIZO Work Phone: [facility] 10-27-2024 14:38-0500 Body weight 84.37 kg Sarah Ramos PA Work Phone: [facility] 10-27-2024 14:38-0500 Diastolic blood pressure 70 mm[Hg] Sarah Ramos PA Work Phone: [facility] 10-27-2024 14:38-0500 Systolic blood pressure 110 mm[Hg] Sarah Ramos PA Work Phone: [facility] 10-19-2024 14:58-0500 Body mass index (BMI) [Ratio] 25.63 kg/m2 Vanessa Gilmer DO Work Phone: [facility] 10-19-2024 14:58-0500 Body weight 85.73 kg Vanessa Gilmer DO Work Phone: [facility] 10-19-2024 14:58-0500 Diastolic blood pressure 64 mm[Hg] Vanessa Gilmer DO Work Phone: [facility] 10-19-2024 14:58-0500 Systolic blood pressure 110 mm[Hg] Vanessa Gilmer DO Work Phone: [facility] 10-06-2024 10:35-0500 Body mass index (BMI) [Ratio] 25.09 kg/m2 Sarah TREVIZO Work Phone: [facility] 10-06-2024 10:35-0500 Body weight 83.92 kg Sarah Ramos PA Work Phone: [facility] 10-06-2024 10:35-0500 Diastolic blood pressure 60 mm[Hg] Sarah Ramos PA Work Phone: [facility] 10-06-2024 10:35-0500 Systolic blood pressure 110 mm[Hg] Sarah TREVIZO Work Phone: [facility] 09-22-2024 10:19-0400 Body mass index (BMI) [Ratio] 24.66 kg/m2 Vanessa Gilmer DO Work Phone: [facility] 09-22-2024 10:0400 Body weight 82.46 kg Vanessa Gilmer DO Work Phone: [facility] 09-22-2024 10:19-0400 Diastolic blood pressure 68 mm[Hg] Vanessa Gilmer DO Work Phone: [facility] 09-22-2024 10:19-0400 Systolic blood pressure 106 mm[Hg] Vanessa Gilmer DO Work Phone: [facility] 09-08-2024 10:[id number] Body mass index (BMI) [Ratio] 24.28 kg/m2 Sarah TREVIZO Work Phone: [facility] 09-08-2024 [id number] Body weight 81.19 kg Sarah TREVIZO Work Phone: [facility] 09-08-2024 10:07-0400 Diastolic blood pressure 70 mm[Hg] Sarah TREVIZO Work Phone: [facility] 09-08-2024 10:07-0400 Systolic blood pressure 110 mm[Hg] Sarah TREVIZO Work Phone: [facility] 08-04-2022 17:10-0400 Body height 180.34 cm DO Saeed Mejia Work Phone: [facility] 08-04-2022 17:10-0400 Body temperature 99.7 [degF] DO Saeed Mejia Work Phone: [facility] 08-04-2022 17:10-0400 Body weight 74 kg DO Saeed Mejia Work Phone: [facility] 08-04-2022 17:10-0400 Diastolic blood pressure 67 mm[Hg] DO Saeed Mejia Work Phone: [facility] 08-04-2022 17:10-0400 Heart rate 104 /min DO Saeed Mejia Work Phone: [facility] 08-04-2022 17:10-0400 Respiratory rate 18 /min DO Saeed Mejia Work Phone: [facility] 08-04-2022 17:10-0400 SaO2% (BldA) [Mass fraction] 97 % DO Saeed Mejia Work Phone: [facility] 08-04-2022 17:10-0400 Systolic blood pressure 122 mm[Hg] DO Saeed Mejia Work Phone: [facility] 03-16-2022 15:23-0400 Blood Pressure Location KEVIN SIDELL [facility] 03-16-2022 15:23-0400 Diastolic blood pressure 74 mm[Hg] KEVIN SIDELL [facility] 03-16-2022 15:23-0400 Heart rate 110 /min KEVIN SIDELL [facility] 03-16-2022 15:23-0400 SaO2% (BldA) [Mass fraction] 98 % KEVIN SIDELL [facility] 03-16-2022 15:23-0400 Systolic blood pressure 112 mm[Hg] KEVIN SIDELL [facility] Encounters Encounter Date Encounter Type Care Provider Facility Start: 10-27-2024 End: 10-27-2024 Ambrosebopierce flowsmac TREVIZO Work Phone: [facility] Start: 10-27-2024 End: 10-27-2024 Bamboo flowsheet Sarah TREVIZO Work Phone: [facility] Start: 10-27-2024 End: 10-27-2024 ambulatory SARAH RAMOS Not Available Start: 10-27-2024 End: 10-27-2024 flow sheet Sarah TREVIZO Work Phone: [facility] Comment on above: Third trimester preg naif; 37 weeks gestation of Start: 10-19-2024 End: 10-19-2024 ambulatory VANESSA GILMER Not Available Start: 10-19-2024 End: 10-19-2024 Bamboo flowsheet Vanessa Gilmer DO Work Phone: [facility] Start: 10-19-2024 End: 10-19-2024 Bamboo flowsheet Vanessa Gilmer DO Work Phone: [facility] Start: 10-19-2024 End: 10-19-2024 flow sheet Vanessa Gilmer DO Work Phone: [facility] Comment on above: Third trimester preg naif; 36 weeks gestation of Start: 10-06-2024 End: 10-06-2024 Bamboo flowsheet Sarah [...] Start: 09-08-2024 End: 09-08-2024 flow sheet Sarah TREVIZO Work Phone: [facility] Comment on above: 30 weeks gestation o f ; Third trimester Start: 08-31-2024 End: 09-01-2024 Clinisync Result Encounter Sarah TREVIOZ Work Phone: [facility] Unsolicited Start: 08-31-2024 End: 09-01-2024 Clinisync Result Encounter Sarah Richard PA Work Phone: [facility] Unsolicited Start: 08-27-2024 End: 08-27-2024 ambulatory SARAH RICHARD Not Available Start: 07-27-2024 End: 07-27-2024 [...] Start: 10-31-2022 End: 10-31-[address] VANESSA SCHERER Facility:[facility] Start: 10-23-2022 End: 10-24-[address] SAEED MEJIA Facility:[facility] Start: 10-17-2022 End: 10-18-[address] SAEED MEJIA Facility:[facility] Start: 10-08-2022 End: 10-09-[address] VANESSA SCHERER Facility:[facility] Start: 08-22-2022 End: 08-23-[address] VANESSA SCHERER Facility:[facility] Start: 08-04-2022 End: 08-04-2022 Emergency department patient visit Saeed Mejia Facility:[facility] Start: 08-04-2022 End: 08-04-2022 Emergency department patient visit DO Saeed Mejia Work Phone: [facility] Start: 03-16-2022 End: 03-16-2022 Patient encounter procedure KEVIN BUCKNER [facility] [place] Procedures Date Procedure Procedure Detail Performing Clinician Start: 10-27-2024 Urnls dip stick/tabl et rgnt non-auto w/o micrscp Sarah TREVIZO Work Phone: Start: 10-19-2024 Urnls dip stick/tabl et rgnt non-auto w/o micrscp Vanessa Gilmer DO Work Phone: Start: 10-06-2024 Urnls dip stick/tabl et rgnt non-auto w/o micrscp Sarah TREVIZO Work Phone: Start: 09-22-2024 Urnls dip stick/tabl et rgnt non-auto w/o micrscp Vanessa Gilmer DO Work Phone: Start: 09-08-2024 Urnls dip stick/tabl et rgnt non-auto w/o micrscp Sarah TREVIZO Work Phone: Start: 08-31-2024 ALL MISCELLANEOUS TEST Sarah TREVIZO Work Phone: Start: 12-31-2022 Delivery of Products of Conception, External Approach JOSELINE RAMOS Start: 12-31-2022 Division of Female Perineum, External Approach JOSELINE RAMOS Start: 12-31-2022 Repair Perineum Musc le, Open Approach JOSELINE RAMOS arm surgery KEVIN SIDEELISA Plan of Treatment Date Care Activity Detail Author Start: 11-04-2024 End: 11-04-2024 Patient encounter procedure 11/04/2024 3:00 PM EST Routine [facility] [address] [place] [address] Vanessa Scherer DO [address] [place], [place] [id number] [facility] Start: 10-27-2024 End: 10-27-2024 Patient encounter procedure 10/27/2024 1:40 PM EST Routine [facility] [address] [place] [address] Sarah Ramos PA [address] [place] [address] [facility] Start: 10-19-2024 End: 10-19-2025 Strep B DNA probe, amplification Strep B DNA probe, amplification Lab Routine Third trimester Expected: 10/19/2024 (Approximate), Expires: 10/19/2025 [facility] Work Phone: Comment on above: Expected: 10/19/2024 (Approximate), Expires: 10/19/2025 Start: 10-06-2024 End: 10-06-2024 Patient encounter procedure 10/06/2024 9:40 AM EST Routine [facility] [address] [place] [id number] Sarah Ramos PA [address] [place], [place] [id number] [facility] Start: 09-22-2024 End: 09-22-2024 Patient encounter procedure 09/22/2024 10:00 AM EDT Routine [facility] [address] [place] [address] Vanessa Scherer DO [address] [place], [place] [id number] [facility] Start: 09-08-2024 End: 09-08-2024 Patient encounter procedure 09/08/2024 9:30 AM EDT Routine [facility] [address] [place] [address] Sarah Ramos, PA [address] [place], [place] [id number] [facility] Start: 09-08-2024 End: 09-08-2024 Professional / ancillary services management 09/08/2024 9:00 AM EDT Ancillary Procedure [facility] [address] [place] [address] [facility] Start: 08-04-2022 Borrelia burgdorferi DNA assay [facility] Work Phone: Borrelia burgdorferi Ab [Interpretation] in Serum [facility] Work Phone: Borrelia burgdorferi IgG Ab [Presence] in Serum or Plasma by Immunoassay [facility] Work Phone: Borrelia burgdorferi IgG+IgM Ab [Presence] in Serum by Immunoassay [facility] Work Phone: Borrelia burgdorferi IgM Ab [Presence] in Serum or Plasma by Immunoassay [facility] Work Phone: Patient Education Skin Rash ED [facility] Work Phone: Patient referral [facility] Work Phone: Payers Date Payer Category Payer [facility] BCBS [id number] 2023 Unknown BCBS BCBS xxxxxx [id number] 2023-Present [phone] [address] [place] [address] [id number] 2023 Unknown [id number] 2022 Self-pay [id number] 1998 Unknown [id number] 2.840.1.116106.3.579 .2.593 1998 Unknown [id number] 2.16840.1.834033.3.579 .2.593 1998 Unknown [id number] 2.16840.1.727906.3.579 .2.593 1998 Unknown [id number] 2.16840.1.225368.3.579 .2.593 1998 Unknown [id number] 2.16840.1.612232.3.579 .2.593 1998 Unknown [id number] 2.16.840.1.260830.3.579 .2.593 1998 Unknown [id number] 2.16.840.1.199318.3.579 .2.593 1998 Unknown [id number] 2.16.840.1.268469.3.579 .2.593 1998 Unknown [id number] 2.16.840.1.602304.3.579 .2.593 1998 Unknown [id number] 2.16.840.1.630425.3.579 .2.593 1998 Unknown [id number] 2.16840.1.292833.3.579 .2.125 1998 Unknown [id number] 2.16840.1.679487.3.579 .2.1258 1998 Unknown [id number] 2.16840.1.785611.3.579 .2.1258 1998 Unknown [id number] 2.16840.1.765162.3.579 .2.125 1998 Unknown [id number] 2.16840.1.329934.3.579 .2.1258 1998 Unknown [id number] 2.16.840.1.946747.3.579 .2.125 1998 Unknown [id number] 2.16840.1.731455.3.579 .2.1258 1998 Unknown [id number] 2.16.840.1.577286.3.579 .2.125 1998 Unknown [id number] 2.16840.1.453218.3.579 .2.1258 1998 Unknown [id number] 2.16840.1.621155.3.579 .2.1258 1998 Unknown [id number] 2.16840.1.220898.3.579 .2.1258 1998 Unknown [id number] 2.16.840.1.684917.3.579 .2.1259 1959 Private Health Insurance [id number] Unknown [id number] 2.16.840.1.452648.3.579 .2.531 Social History Date Type Detail Facility Start: 03-16-2022 End: 05-11-2024 Tobacco smoking status Never smoked tobacco (finding) [facility] Tobacco smoking status Never [facility] Start: 05-11-2024 Sex Assigned At Female F [facility] Start: 2000 Sex Assigned At Female F [facility] Start: 05-11-2024 Tobacco use and exposure Smokeless tobacco non-user [facility] Start: 08-27-2024 End: 10-27-2024 Alcoholic beverage intake Ex-drinker (finding) [facility] Start: 05-11-2024 History of Social function [facility] Start: 02-21-2024 [facility] Clinical Notes 09-08-2024 to 10-27-2024 JOSELINE Quesada - 10/27/2024 1:40 PM Kristin Jordan LPN - 10/19/2024 2:00 PM JOSELINE Manzanares - 10/06/2024 9:40 AM Stefanie Valdez LPN - 09/22/2024 10:00 AM JOSELINE Diez - 09/08/2024 9:30 AM EDT Note Date & Type Note Facility 10-27-2024 History of Present illness Narrative Reason for Appointment: Patient ID: Tevin Presley is a 24 y.o. female who presents for Routine Visit Patient presents today for Return OB appointment. MEDICATIONS Current Outpatient Medications Medication Instructions Jejlkjmn-Hvc-Ym-FA (, w/Iron & FA,) 27-0.8 MG tablet [...] reviewed. Vitals: Estimated body mass index is 25.23 kg/m as calculated from the following: Height as of 02/20/23: 6'. Weight as of this encounter: 186 lb. BP: 110/70 Patient's last menstrual period was 02/07/2024. ASSESSMENT & PLAN ICD-10-CM 1. Third trimester Z34.93 2. 37 weeks gestation of Z3A.37 Return OB: Patient presents today for a routine obstetrics appointment. Patient is currently 37w4d . Patient states she is doing well but has complaints of being tired due to current . Patient has verbalizes frequent movement. labor precautions was discussed/given and patient was instructed to perform kick counts three times a day. No orders of the defined types were placed in this encounter. Follow Up: Patient is to return to office in 1 week for routine OB appointment. Documented by Yazmin Castaneda MA on behalf of: JOSELINE Quesada documented in this encounter [facility] 10-19-2024 History of Present illness Narrative Reason for Appointment: Patient ID: Tevin Presley is a 24 y.o. female who presents for Routine Visit Patient presents today for Return OB appointment. MEDICATIONS Current Outpatient Medications Medication Instructions Vaviahzp-Kgl-Bx-FA (, w/Iron & FA,) 27-0.8 MG tablet [...] SYSTEMS Review of Systems: Review of Systems All other systems reviewed and are negative. OBJECTIVE Objective: OBGyn Exam Vitals: Estimated body mass index is 25.63 kg/m as calculated from the following: Height as of 02/20/23: 6'. Weight as of this encounter: 189 lb. BP: 110/64 Patient's last menstrual period was 02/07/2024. ASSESSMENT & PLAN ICD-10-CM 1. Third trimester Z34.93 POCT urinalysis dipstick manually resulted Strep B DNA probe, amplification Strep B DNA probe, amplification 2. 36 weeks gestation of Z3A.36 POCT urinalysis dipstick manually resulted Patient is doing well but has complaints of being tired and having maternal discomfort due to . Patient verbalized frequent movement and was instructed to perform kick counts three times per day. labor precautions were given, LARC consent was signed/declined, and GBS was obtained. Cervical check was performed and patient is 1cm dilated. Orders Placed This Encounter Procedures Strep B DNA probe, amplification POCT urinalysis dipstick manually resulted Follow Up: Patient is to return to office in 1 week for routine OB appointment Documented by Lis Jordan LPN on behalf of: Vanessa Scherer DO documented in this encounter [facility] 10-06-2024 History of Present illness Narrative Reason for Appointment: Patient ID: Tevin Presley is a 24 y.o. female who presents for Routine Visit Patient presents today for Return OB appointment. MEDICATIONS Current Outpatient Medications Medication Instructions Lggoucgm-Thd-Sh-FA (, w/Iron & FA,) 27-0.8 MG tablet [...] of: JOSELINE Quesada documented in this encounter [facility] 09-22-2024 History of Present illness Narrative Reason for Appointment: Patient ID: Tevin Presley is a 24 y.o. female who presents for Routine Visit Patient presents today for Return OB appointment. MEDICATIONS Current Outpatient Medications Medication Instructions Hwfiebsu-Zgy-Yw-FA (, w/Iron & FA,) 27-0.8 MG tablet [...] nursing note reviewed. Exam conducted with a kerfer machine operator present. Vitals: Estimated body mass index is [...] Vanessa Scherer DO documented in this encounter [facility] 09-08-2024 History of Present illness Narrative Reason for Appointment: Patient ID: Tevin Presley is a 24 y.o. female who presents for Routine Visit Patient presents today for Return OB appointment. MEDICATIONS Current Outpatient Medications Medication Instructions Wtaxzgmn-Fcp-Ii-FA (, w/Iron & FA,) 27-0.8 MG tablet [...] Quesada documented in this encounter [facility] Evaluation + Plan note No data available for this section [facility] Evaluation note No assessment inform ation available [facility] Work Phone: Evaluation note Diagnosis 30 weeks gestation of Third trimester state, incidental documented in this encounter [facility]* Diagnosis Third trimester state, incidental 32 weeks gestation of documented in this encounter [facility]* Diagnosis Third trimester state, incidental 34 weeks gestation of documented in this encounter [facility]* Diagnosis Third trimester state, incidental 36 weeks gestation of documented in this encounter [facility] HealthcareEvaluation note* Diagnosis Third trimester state, incidental 37 weeks gestation of documented in this encounter [facility]ospital Discharge instructions No data available for this section [facility] [place] Chief Complaint and Reason for Visit Chief [...] section and content) DATE CREATED AUTHOR 08/07/2022 [facility] DATE CREATED AUTHOR AUTHOR'S ORGANIZ ATION 09/01/2022 [facility] DATE CREATED AUTHOR AUTHOR'S ORGANIZ ATION 01/16/2023 [facility] DATE CREATED AUTHOR AUTHOR'S ORGANIZ ATION 10/30/2024 [facility] EPIC Reason for Visit (unrecogniz [...] BE BASED ON THE PRIMARY CLINICAL RECORDS. [facility] [employer] [facility]. provides no warranty or guarantee of the accuracy or completeness of information in this document.
[2024-11-01 15:49] VITALS: PULSE 82
[2024-11-01 15:58] VITALS: TEMP 35.4
[2024-11-01 16:44] LABS: Hematocrit 29.8 % (36.0-48.0); Hemoglobin 9.2 g/dL (12.0-16.0); Mean Corpuscular HGB Conc 30.9 g/dL (29.9-35.2); Mean Corpuscular Hemoglobin 23.9 pg (26.7-34.0); Mean Corpuscular Volume 77.4 fL (81.0-99.0); Mean Platelet Volume 10.7 fL (9.5-13.5); Platelet Count 288 10^3/uL (150-450); Red Blood Count 3.85 10^6/uL (4.20-5.40); Red Cell Distribution Width 13.9 % (11.0-15.0); White Blood Count 11.5 10^3/uL (4.0-11.0)
[2024-11-01 17:03] LABS: Amphetamine Screen Urine NEGATIVE (NEGATIVE); Barbiturates Screen Urine NEGATIVE (NEGATIVE); Benzodiazepines Screen Urine NEGATIVE (NEGATIVE); Buprenorphine Screen Urine NEGATIVE (NEGATIVE); Cannabinoid Screen Urine NEGATIVE (NEGATIVE); Cocaine Screen Urine NEGATIVE (NEGATIVE); Methadone Screen Urine NEGATIVE (NEGATIVE); Methamphetamines Screen Urine NEGATIVE (NEGATIVE); Opiate Screen Urine NEGATIVE (NEGATIVE); Oxycodone Screen Urine NEGATIVE (NEGATIVE); Phencyclidine Screen Urine NEGATIVE (NEGATIVE); Tricyclic Antidepressant Urine NEGATIVE (NEGATIVE)
[2024-11-01 18:00] VITALS: TEMP 36.1
[2024-11-01 19:10] VITALS: TEMP 36.6; TEMP 36.7
[2024-11-01 19:11] VITALS: BP 119/74; PULSE 74
[2024-11-01 23:24] VITALS: BP 107/55; PULSE 67
[2024-11-02] VITALS (47 sets, daily range): BP systolic 80–127; BP diastolic 41–69; PULSE 59–82; TEMP 36.6–36.9
[2024-11-02] MEDS: 0.9 % SODIUM CHLORIDE 1,000 ML 125 ML IV ×3 (00:01→14:37)
[2024-11-02] MEDS: OXYTOCIN/0.9 % SODIUM CHLORIDE 10 UNITS/500 ML PLAST..BAG 6 UNIT IV (00:02)
[2024-11-02] MEDS: AMPICILLIN SODIUM 2,000 MG in 0.9 % SODIUM CHLORIDE 100 ML 200 MG IV (13:01)
[2024-11-02] MEDS: OXYTOCIN/0.9 % SODIUM CHLORIDE 10 UNITS/500 ML PLAST..BAG 60 UNIT IV (14:30)
[2024-11-02] MEDS: NALBUPHINE HCL 10 MG/ML AMPULE IV (15:17)
[2024-11-02] MEDS: OXYTOCIN/0.9 % SODIUM CHLORIDE 20 UNITS/1,000 ML PLAST..BAG 125 UNIT IV (15:48)
--- NOTE | 2024-11-02 16:02 | PM.OBPRCVD ---
Procedure Intrapartal events: None Induction method: none Delivery augmentation: pitocin Delivery monitor: external FHT and external uterine Route of delivery: Episiotomy Description: midline Anesthesia type: None Disposition: floor Delivery date: 11/02/24 Gender: male presentation: vertex Placental delivery description: Spontaneous cord description: 3 Vessels
[2024-11-02] MEDS: IBUPROFEN 600 MG TABLET PO (17:02)
[2024-11-02] MEDS: BENZOCAINE/MENTHOL 85 GRAM SPRAY BOTTLE 1 APPLIC TOPICAL (17:03)
[2024-11-02] MEDS: GLYCERIN/WITCH HAZEL PADS 1 PAD TOPICAL (17:03)
[2024-11-02] MEDS: LIDOCAINE HCL 1% 200 MG/20 ML MDV INJ (17:49)
[2024-11-03 06:58] LABS: Basophils Absolute Auto 0.1 10^3/uL (0.0-0.1); Basophils Percent Auto 0.4 % (0.2-2.0); Eosinophils Absolute Auto 0.1 10^3/uL (0.0-0.7); Eosinophils Percent Auto 0.5 % (0.9-7.0); Hematocrit 28.4 % (36.0-48.0); Hemoglobin 8.7 g/dL (12.0-16.0); Immature Granulocytes Abs Auto 0.07 10^3/uL (0.00-0.03); Immature Granulocytes Pct Auto 0.5 % (0.0-0.5); Lymphocytes Absolute Auto 3.3 10^3/uL (1.2-3.8); Lymphocytes Percent Auto 24.4 % (20.5-60.0); Mean Corpuscular HGB Conc 30.6 g/dL (29.9-35.2); Mean Corpuscular Volume 78.2 fL (81.0-99.0); Mean Platelet Volume 10.6 fL (9.5-13.5); Monocytes Absolute Auto 0.9 10^3/uL (0.3-0.8); Monocytes Percent Auto 6.7 % (1.7-12.0); Neutrophils Absolute Auto 9.1 10^3/uL (1.4-6.5); Neutrophils Percent Auto 67.5 % (43.0-75.0); Platelet Count 283 10^3/uL (150-450); Red Blood Count 3.63 10^6/uL (4.20-5.40); Red Cell Distribution Width 13.9 % (11.0-15.0); White Blood Count 13.5 10^3/uL (4.0-11.0)
--- NOTE | 2024-11-03 07:40 | PM.OBPN ---
OB - PN: Subj Subjective Patient comments: no complaints and pain well controlled [place] status: doing well Exam Constitutional Vital Signs, click to edit/add: Last Vital Signs Temp 97.9 F 11/02/24 23:45 Pulse 60 11/02/24 23:45 Resp 16 11/02/24 17:35 BP 117/60 11/02/24 23:45 O2 Del Method Room Air 11/03/24 00:00 Documenting provider has reviewed patient's vital signs: yes Common normals: no apparent distress Respiratory Common normals: clear to auscultation bilaterally Cardio Common normals: regular rate and regular rhythm GI Common normals: Normal to inspection, nondistended, normoactive bowel sounds present Extremity Common normals: no calf tenderness Results Labs Labs: Short CBC 11/03/24 Range/Units 06:22 WBC 13.5 H (4.0-11.0) 10^3/uL Hgb 8.7 L (12.0-16.0) g/dL Hct 28.4 L (36.0-48.0) % Plt Count 283 (150-450) 10^3/uL OB - PN: A/P Plan - Vaginal Delivery day: 1 Plan: routine care Time Spent with Patient Time: Total time spent is greater than 50% in coordination of care (as documented) at patient's floor/unit and/or counseling patient: Total time spent with greater than 50% in coordination of care (as documented) at patient's floor/unit and/or counseling patient: less than 15 minutes
[2024-11-03 08:10] VITALS: BP 108/62; PULSE 68
[2024-11-03] MEDS: DOCUSATE SODIUM 100 MG CAPSULE PO ×2 (08:37→21:08)
[2024-11-03] MEDS: IBUPROFEN 600 MG TABLET PO ×2 (08:37→13:34)
--- NOTE | 2024-11-03 08:54 | P.OBPN_ITS ---
OB - PN: Subj Subjective Patient comments: no complaints [place] status: doing well feeding status: exclusively Exam Constitutional Vital Signs, click to edit/add: Last Vital Signs Temp 97.9 F 11/02/24 23:45 Pulse 68 11/03/24 08:10 Resp 16 11/02/24 17:35 BP 108/62 11/03/24 08:10 O2 Del Method Room Air 11/03/24 08:10 Common normals: no apparent distress, average body habitus, oriented x3, no limitations, healthy appearing, alert and well nourished Orientation/consciousness: Yes awake, Yes oriented to person, Yes oriented to place and Yes oriented to time HENMT Common normals: normocephalic Eye Common normals: EOMs intact bilaterally Neck & C-Spine Common normals: full ROM and no lymphadenopathy Lymph Lymphatic: no lymphadenopathy noted Chest Common normals: inspection of chest normal Respiratory Common normals: normal respiratory effort, no retractions and no use of accessory muscles Auscultation: clear to auscultation bilaterally Cardio Common normals: regular rate and regular rhythm Rate: regular rate Rhythm: regular rhythm GI Common normals: Normal to inspection, nondistended, normoactive bowel sounds present Palpation: soft Common normals: external appearance normal Back & Pelvis Common normals: no CVA tenderness Extremity Common normals: normal to inspection Neuro Common normals: oriented x3 Sensorium/orientation: awake, alert, oriented to person, oriented to place and oriented to time Psych Common normals: mental status grossly normal, thought process normal, cooperativ e, affect normal, speech normal, activity/motor behavior normal, denies hallucinations, denies homicidal ideation and denies suicidal ideation Results Labs Labs: Short CBC 11/03/24 Range/Units 06:22 WBC 13.5 H (4.0-11.0) 10^3/uL Hgb 8.7 L (12.0-16.0) g/dL Hct 28.4 L (36.0-48.0) % Plt Count 283 (150-450) 10^3/uL OB - PN: A/P Plan - Vaginal Delivery day: 1 Plan: routine care Time Spent with Patient Time: Total time spent is greater than 50% in coordination of care (as documented) at patient's floor/unit and/or counseling patient: Total time spent with greater than 50% in coordination of care (as documented) at patient's floor/unit and/or counseling patient: less than 15 minutes
[2024-11-03 16:05] VITALS: BP 86/51; PULSE 76
[2024-11-03 16:15] VITALS: PULSE 88; TEMP 36.9
[2024-11-03 23:02] VITALS: BP 106/57; PULSE 66; TEMP 36.3
[2024-11-04] MEDS: IBUPROFEN 600 MG TABLET PO ×2 (06:13→12:01)
--- NOTE | 2024-11-04 08:18 | P.OBPN_ITS ---
OB - PN: Subj Subjective Patient comments: no complaints and pain well controlled [place] status: doing well Exam Constitutional Vital Signs, click to edit/add: Last Vital Signs Temp 97.3 F L 11/03/24 23:02 Pulse 66 11/03/24 23:02 Resp 14 11/03/24 23:00 BP 106/57 11/03/24 23:02 O2 Del Method Room Air 11/03/24 23:00 Documenting provider has reviewed patient's vital signs: yes Common normals: no apparent distress Respiratory Common normals: clear to auscultation bilaterally Cardio Common normals: regular rate and regular rhythm GI Common normals: Normal to inspection, nondistended, normoactive bowel sounds present Extremity Common normals: no clubbing, cyanosis or edema OB - PN: A/P Plan - Vaginal Delivery day: 2 Plan: routine care, discharge home and follow up 6 weeks Time Spent with Patient Time: Total time spent is greater than 50% in coordination of care (as documented) at patient's floor/unit and/or counseling patient: Total time spent with greater than 50% in coordination of care (as documented) at patient's floor/unit and/or counseling patient: less than 15 minutes
[2024-11-04 09:50] VITALS: BP 124/57; PULSE 75; TEMP 37.2
[2024-11-04] MEDS: DOCUSATE SODIUM 100 MG CAPSULE PO (10:39)
[2024-11-04] MEDS: RHO(D) IMMUNE GLOBULIN 1,500 UNIT SYRINGE 1500 UNIT IM (10:39)
== END 2024-11-04 14:50 | disposition home or self-care (01) | DRG 807 ==
PROVIDERS: Admitting Provider Obstetrics & Gynecology; PCP Family Medicine; Visit Provider Obstetrics & Gynecology
DX: O26.893 Other specified pregnancy related conditions, third trimester (principal); Z37.0 Single live birth; Z67.11 Type A blood, Rh negative; Z3A.38 38 weeks gestation of pregnancy; O70.0 First degree perineal laceration during delivery
CPT/HCPCS: 36415; 59050; 59410; 80307; 85025; 85027; 85461; 86850; 86900; 86901; J0290; J2300; J2791